=== PATIENT | female | born 1950 | race African-American/Black ===

== ENCOUNTER 2017-05-21 12:38 | Emergency (ER) | payer OTHER ==
[2017-05-21 13:09] VITALS: TEMP 98.2; BMI 54.8
[2017-05-21] MEDS ORDERED: ALBUTEROL SO4 2.5/IPRATROPIUM 0.5 INH SOL 3 ML VIAL.NEB. NEB ONE (13:21)
[2017-05-21] MEDS ORDERED: methylPREDNISolone NA SUCC 125 MG/2 ML VIAL IVPB ONE (13:21)
[2017-05-21] MEDS ORDERED: MAGNESIUM SULFATE 2 GM in SODIUM CHLORIDE 100 ML IVPB ONE (13:21)
--- NOTE | 2017-05-21 13:21 | PDOC ---
Attending Attestation - Resident Resident Name: Ann Dove - ED Attending Attestation I have performed the following: I have examined & evaluated the patient, The case was reviewed & discussed with the resident, I agree w/resident's findings & plan, Exceptions are as noted - HPI HPI: 05/21/17 13:35 The pt is a 67 year female with severe COPD (on home oxygen) and extensive cardiovascular disease, who presents with dizziness (described as room spinning ) associated with nausea. The dizziness is only present with head movement. It extinguishes within seconds. It is never present if she does not move her head. She denies diplopia, dysphagia, dysarthria, ataxia. She denies focal weakness or paresthesias. She denies loss of consciousness. She denies tinnitus, hearing changes. 05/21/17 13:44 - Physicial Exam PE: 05/21/17 13:44 She is obese, well-appearing, in no acute distress There are no focal neurological findings Specifically, there is no dysmetria, dysdiadochokinesis NEURO: Alert, awake, appropriate. Cranial nerves 2-12 intact. No deficits to light touch and temperature in face, upper extremities and lower extremities. No motor deficits in the in face, upper extremities and lower extremities. No pronator drift. Normoreflexic in the upper and lower extremities. Normal speech. Toes are down-going bilaterally. Gait is normal without ataxia. No dysmetria. No dysdiadochokinesis. No skew deviation. No abnormal nystagmus. Rhomberg is -. Head thrust test is + on left. Dixs-Hallpike test is + on left. 05/21/17 16:56 - Medical Decision Making 05/21/17 16:56 Symptoms much improved She has no evidence of central vertigo Per the patient and her , her respiratory status is at baseline Will discharge with ENT follow-up Clinical impression: Benign paroxysmal positional vertigo I discussed the physical exam findings, ancillary test results and final diagnoses with the patient. I answered all of the patient's questions. The patient was satisfied with the care received and felt comfortable with the discharge plan and treatment plan. The patient will call their primary care physician within 24 hours to arrange follow-up and will return to the Emergency Department with any new, persistent or worsening symptoms. Discharge Disposition - Diagnosis Vertigo - Discharge Dispostion Disposition: HOME Condition at time of disposition: Improved Last Admission D/C Date: 07/23/15 - Prescriptions Prescriptions: Meclizine HCl [Antivert -] 25 mg PO QID PRN #120 tablet PRN Reason: Vertigo Ondansetron HCl [Zofran] 4 mg PO Q4H PRN #60 tablet PRN Reason: Nausea - Referrals Referrals: Samia Rivera MD [Primary Care Provider] - Herb Hector MD [Staff Physician] - - Patient Instructions Printed Discharge Instructions: Benign Paroxysmal Positional Vertigo Additional Instructions: your vertigo is due to a stone in your left middle ear. It should go away in a week or two. Please take meclizine when you are dizzy and zofran when you are nauseous. Be careful not to fall down. Follow up with Dr Hector who is an cutting machine offbearer. Return to ER if symptoms persist - Post Discharge Activity
--- NOTE | 2017-05-21 13:34 | PDOC ---
History of Present Illness - General Chief Complaint: Lightheaded Stated Complaint: DIZZINESS Time Seen by Provider: 05/21/17 13:19 History Source: Patient Exam Limitations: No Limitations - History of Present Illness Initial Comments: 05/21/17 14:19 This is a 67 yo F with PMH of COPD on 2L, CAD s/p cabg, htl, hld, borderline DM and neuropathy, who presents to ED due to vertigo that started yesterday morning. She describes the sensation as the room spinning around her. It comes and goes, brought out by movement, especially leaning left. She denies h/a, focal neuro deficits. She complans of associated nausea with 3 episodes of nbnb vomiting and some nonbloody, nonmelenous diarrhea. She denies increased sob, cough orthopnea, LE edema, chest pain, dysuria. She denies dysmetria, dysarthria , dysphagia. Past History - Past Medical History Allergies/Adverse Reactions: Allergies Allergy/AdvReac Type Severity Reaction Status Date / Time ibuprofen Allergy Verified 07/21/15 01:55 Penicillins Allergy Verified 07/21/15 01:55 Home Medications: Ambulatory Orders Albuterol Sulfate [Proair Hfa -] 2 inh PO DAILY 02/03/15 Amlodipine Besylate [Norvasc -] 10 mg PO DAILY 02/03/15 Losartan Potassium 100 mg PO DAILY 02/03/15 Salmeterol/Fluticasone [Advair 100Mcg/50Mcg -] 1 inh PO BID 02/03/15 Simvastatin [Zocor -] 20 mg PO HS 02/03/15 Tiotropium [place] [Spiriva] 1 inh PO DAILY 02/03/15 Azithromycin 500 mg PO DAILY #0 tablet 07/23/15 Prednisone [Deltasone -] 40 mg PO DAILY #0 tablet 07/23/15 Meclizine HCl [Antivert -] 25 mg PO QID PRN #120 tablet 05/21/17 Ondansetron HCl [Zofran] 4 mg PO Q4H PRN #60 tablet 05/21/17 Cardiac Disorders: Yes COPD: Yes Diabetes: Yes (borderline) HTN: Yes Hypercholesterolemia: Yes - Surgical History Cardiac Surgery: Yes (triple bypass) - Immunization History Immunization Up to Date: Yes - Psycho/Social/Smoking Cessation Hx Anxiety: No Suicidal Ideation: No Smoking History: Unknown if ever smoked Have you smoked in the past 12 months: No Information on smoking cessation initiated: No Hx Alcohol Use: No Drug/Substance Use Hx: No Substance Use Type: None Hx Substance Use Treatment: No Review of Systems - Review of Systems Able to Perform ROS?: Yes Is the patient limited [place] Citizen proficient: No Constitutional: No: Chills, Fever HEENTM: No: Blurred Vision, Ear Discharge, Nose Pain, Nose Congestion, Tinnitus , Hearing Loss, Throat Pain, Difficulty Swallowing Respiratory: Yes: Shortness of Breath (stable). No: Cough, Orthopnea, Wheezing Cardiac (ROS): No: Chest Pain, Irregular Heart Rate, Lightheadedness, Palpitations, Syncope ABD/GI: Yes: Diarrhea. No: Abdominal Distended, Constipated, Nausea, Rectal Bleeding, Vomiting, Tarry Stools : No: Burning, Dysuria, Flank Pain Integumentary: No: Rash, Sweating Neurological: No: Headache, Numbness, Paresthesia Psychiatric: No: Anxiety, Frequent Crying Endocrine: No: Change in Weight Hematologic/Lymphatic: No: Anemia, Blood Clots, Easy Bleeding, Easy Bruising All Other Systems: Reviewed and Negative *Physical Exam - Vital Signs Last Vital Signs Temp Pulse Resp BP Pulse Ox 98.2 F 92 H 26 H 131/76 91 L 05/21/17 13:03 05/21/17 13:03 05/21/17 13:03 05/21/17 13:03 05/21/17 13:03 - Physical Exam Comments: 05/21/17 14:50 General: aao x 3 nad HEENT: R tympanic membrane wnl, L obscred by ear wax. PERRLA EOMI, no thyromegaly CV: rrr s1 s2 Pulm: diffusely restricted breath sounds, somewhat tachypneic, no accessory muscle use GI: obese, nontender, nondistended, normoactive bowel sounds Extremities: nonedematous Higbee hallpike + left side 05/21/17 14:53 Medical Decision Making - Medical Decision Making 05/21/17 14:53 Patient presents with clinical picture consistent with benign positional vertigo because it is intermittent, positional, lasting a few seconds only, not associated with ear fullness, tinnitus, h/a or neuro deficits. will d/c home with meclizine, zofran, and ENT f/u. *DC/Admit/Observation/Transfer Diagnosis at time of Disposition: Vertigo - Discharge Dispostion Admit: No - Prescriptions Prescriptions: Meclizine HCl [Antivert -] 25 mg PO QID PRN #120 tablet PRN Reason: Vertigo Ondansetron HCl [Zofran] 4 mg PO Q4H PRN #60 tablet PRN Reason: Nausea - Referrals Referrals: Samia Rivera MD [Primary Care Provider] - Herb Hector MD [Staff Physician] - - Patient Instructions Printed Discharge Instructions: Benign Paroxysmal Positional Vertigo Additional Instructions: your vertigo is due to a stone in your left middle ear. It should go away in a week or two. Please take meclizine when you are dizzy and zofran when you are nauseous. Be careful not to fall down. Follow up with Dr Hector who is an nuclear reactor engineer. Return to ER if symptoms persist
[2017-05-21] MEDS ORDERED: MECLIZINE HCL 25 MG TABLET (FP) PO ONE (13:44)
[2017-05-21] MEDS ORDERED: ONDANSETRON 4 MG TABLET PO ONE (13:44)
[2017-05-21] MEDS ORDERED: MECLIZINE HCL 25 MG TABLET (FP) ONE (14:05)
[2017-05-21] MEDS ORDERED: ONDANSETRON *ODT* 4 MG TABLET ONE (14:05)
[2017-05-21 14:20] VITALS: BP 123/76; PULSE 93
== END 2017-05-21 14:20 | disposition home or self-care (01) ==
LOC: JER 12:38
PROC: 3E0F7GC Introduction of Other Therapeutic Substance into Respiratory Tract, Via Natural or Artificial Opening (ICD-10-PCS; principal; 2017-05-21)
PROC: 3E033GC Introduction of Other Therapeutic Substance into Peripheral Vein, Percutaneous Approach (ICD-10-PCS; 2017-05-21)
DX: H81.10 Benign paroxysmal vertigo, unspecified ear (principal); J44.9 Chronic obstructive pulmonary disease, unspecified
CPT/HCPCS: 99282-25

== ENCOUNTER 2017-12-23 22:43 | Inpatient (IN) | payer OTHER ==
[2017-12-23] MEDS ORDERED: MAGNESIUM SULF 50% (8.12 MEQ/2 ML-1 GM VIAL) ONE ×2 (22:46→22:49)
[2017-12-23] MEDS ORDERED: MAGNESIUM SULF 50% (8.12 MEQ/2 ML-1 GM VIAL) IVPB ONE (22:46)
--- NOTE | 2017-12-23 22:46 | PDOC ---
Attending Attestation - HPI HPI: 12/23/17 22:51 Patient is a 67F with PMH of COPD, CAD s/p cabg, htn, hld NIDDM, morbidly obese , who was BIBA with her brother for respiratory distress. EMS reports patient experiencing SOB, dizziness, and nausea. EMS states they transported patient down 4 flights of stairs and during transport patient began going into respiratory distress. Patient states she noticed increased wheezing at rest which prompted her to call EMS. Her baseline is wheezing on exertion only. Patient denies increased sputum production or cough. Social Hx: former smoker (18 years ago) Allergies: penicillin, ibuprofen PCP: Samia Rivera <Mela Allen - Last Filed: 12/24/17 00:43> - Resident Resident Name: Moshe Rajan - ED Attending Attestation I have performed the following: I have examined & evaluated the patient, The case was reviewed & discussed with the resident, I agree w/resident's findings & plan, Exceptions are as noted - Physicial Exam PE: 12/23/17 23:11 *Physical Exam General Appearance: Yes: moderate respiratory distress. HEENT: positive: EOMI, NATALIE, Normal ENT Inspection, Normal Voice, TMs Normal, Pharynx Normal. negative: Pale Conjunctivae, Photophobia, Scleral Icterus (R), Scleral Icterus (L) Neck: positive: Trachea midline, Normal Thyroid, Supple. negative: Tender, Rigid, Carotid bruit, Stridor, Lymphadenopathy (R), Lymphadenopathy (L), Thyromegaly Respiratory/Chest: positive: decreased BS bilateral moderate respiratory distress negative: Chest Tender, Cardiovascular: positive: Tachycardiac r Rhythm, Regular Rate, S1, S2. negative : Edema, JVD, Murmur, Bradycardia, Vascular Pulses: Dorsalis-Pedis (R): 2+, Doralis-Pedis (L): 2+ Gastrointestinal/Abdominal: positive: Normal Bowel Sounds, obese , Soft. negative: Tender, Organomegaly, Pulsatile Mass, Increased Bowel Sounds, Decreased BS, Distended, Guarding, Rebound, Hernia, Hepatomegaly, Spleenomegaly Lymphatic: negative: Adenopathy, Tenderness Musculoskeletal: positive: Normal Inspection. negative: CVA Tenderness, Decreased Range of Motion Extremity: positive: Normal Capillary Refill, Normal Inspection, Normal Range of Motion, Pelvis Stable. negative: Tender, Pedal Edema, Swelling, Erythema Integumentary: positive: Normal Color, Dry, Warm. negative: Cyanotic, Erythema , Jaundice, Rash - Medical Decision Making 12/24/17 19:36 Pt was admitted to ICU <Charlie Bowie - Last Filed: 12/24/17 19:36>
--- NOTE | 2017-12-23 22:48 | PDOC ---
History of Present Illness - General Stated Complaint: SOB Time Seen by Provider: 12/23/17 22:45 - History of Present Illness Initial Comments: 12/23/17 22:47 67 yo F with h/o COPD, CAD s/p CABG, HTN, HLD, NIDDM, who arrives EMS with SOB. Patient brother lives with patient at home and is at bedside reports that pt. was complaining of having chest congestion for the past 2 days. Denies increased sputum production or cough. Reports that patient typically has wheezing with exertion, but today patient with wheezing at rest, and increased Sandoval which prompted family member to call EMS. [facility] arrival patient resp status detriiorated with labored breathing. Denies F/C, abdominal pain, urinary complaints, diarrhea, constipation, LOC. No home 02 requirements for the past year. Smoking cessation 18 years ago. ICU admission 2008 for COPD exacerbation. No h/o intubation. Uses Advir daily. Past History - Past Medical History Allergies/Adverse Reactions: Allergies Allergy/AdvReac Type Severity Reaction Status Date / Time ibuprofen Allergy Verified 12/23/17 23:04 Penicillins Allergy Verified 12/23/17 23:04 Home Medications: Ambulatory Orders Amlodipine Besylate [Norvasc -] 10 mg PO DAILY 02/03/15 Losartan Potassium 100 mg PO DAILY 02/03/15 Salmeterol/Fluticasone [Advair 100Mcg/50Mcg -] 1 inh PO BID 02/03/15 Gabapentin 300 mg PO HS 12/23/17 Metformin HCl [Glucophage] 1,000 mg PO BID 12/23/17 Metoprolol Tartrate 25 mg PO DAILY 12/23/17 Cardiac Disorders: Yes COPD: Yes Diabetes: Yes (borderline) HTN: Yes Hypercholesterolemia: Yes - Surgical History Cardiac Surgery: Yes (triple bypass) - Immunization History Immunization Up to Date: Yes - Suicide/Smoking/Psychosocial Hx Smoking History: Unknown if ever smoked Have you smoked in the past 12 months: No Hx Alcohol Use: No Drug/Substance Use Hx: No Substance Use Type: None Hx Substance Use Treatment: No Review of Systems - Review of Systems Comments:: 12/24/17 00:00 Unable to obtain. *Physical Exam - Physical Exam Comments: 12/23/17 22:47 GENERAL: Awake, alert, and fully oriented, in no acute distress HEAD: No signs of trauma, normocephalic, atraumatic EYES: PERRLA, EOMI, sclera anicteric, conjunctiva clear ENT: Nares patent, oropharynx clear without exudates. Moist mucosa NECK: Normal ROM, supple, no lymphadenopathy, JVD, or masses LUNGS: Diffuse rhonci BL and rales at BL LL bases. Labored breathing. HEART: Regular rate and rhythm, normal S1 and S2, no murmurs, rubs or gallops, peripheral pulses normal and equal bilaterally. ABDOMEN: Soft, nontender, normoactive bowel sounds. No guarding, no rebound. No masses EXTREMITIES : Normal inspection, Normal range of motion, no edema. No clubbing or cyanosis. SKIN: Warm, Dry, normal turgor, no rashes or lesions noted. ED Treatment Course - LABORATORY CBC & Chemistry Diagram: 12/23/17 23:00 12/23/17 23:00 Medical Decision Making - Medical Decision Making 12/23/17 23:10 67 yo F with h/o COPD ( not on home ) , CAD s/p CABG, HTN, HLD, NIDDM, who arrives EMS in respiratory distress, hypoxic 88 % O2 on 2 L NC, and 3/4 SIRS criteria (Temp 102.6 , HR 112, R 32). Patient now stable on BIPAP S/T, 20/5 RR 24, and 60 % 02. Got Decadron 10 IM EMS,and 2 MG in ED. Patient brother lives with patient at home and is at bedside reports that pt. was complaining of having chest congestion for the past 2 days with no reported increase sputum production or cough. Baseline wheezing with exertion, but today patient with wheezing at rest, and increased Sandoval. Denies F/C, abdominal pain, urinary complaints, diarrhea, constipation, LOC. Smoking cessation 18 years ago. ICU admission 2008 for COPD exacerbation. No h/o intubation. Uses Advir daily. Physical exam notable for diffuse epx/insp rhonci and BL LL base rales.Samia Rivera PMD. DDx: Acute on Chronic COPD, CHF, PNA ED Course: 12/24/17 00:07 WBC: 16.1 Lactic Acid 1.8 ABG: Temp adjusted PH 7.13 PCO2 87.6, PO2 378, HCO3 26.5 - Adjusted vent settings. CXR: Pulm venous congestion. BNP: 1823 Influenza A positive Levaquin 750 , Tylenol 650 mg 12/24/17 00:50 Spoke to Doug PAPER ROLLER [phone] for admission. 12/24/17 01:[address] Called [address] Miguel Gracia Called answering service Called Dr. Gracia cell phone and left message. Called physician phone. 12/24/17 03:32 Morphine 4 mg 12/24/17 05:41 Patient admitted to inpatient hospitalist ICU. Dr. Gonzalez. *DC/Admit/Observation/Transfer Diagnosis at time of Disposition: COPD (chronic obstructive pulmonary disease), Sepsis, CHF (congestive heart failure), PNA (pneumonia) - Discharge Dispostion Admit: Yes - Referrals - Patient Instructions - Post Discharge Activity
[2017-12-23] MEDS ORDERED: ACETAMINOPHEN 650 MG SUPP.RECT ONE (22:56)
[2017-12-23] MEDS ORDERED: ACETAMINOPHEN 650 MG SUPP.RECT PR ONE (22:58)
[2017-12-23] MEDS ORDERED: LEVOFLOXACIN 750 MG IVPB 750 MG/150 ML BAG IVPB ONE ×2 (22:58→23:19)
[2017-12-23] MEDS ORDERED: SODIUM CHLORIDE 1,000 ML IV STA (22:59)
[2017-12-23 23:07] LABS: ARTERIAL BLD GAS O2 SATURATION 99.3 % (90-98.9); ARTERIAL BLOOD GAS BASE EXCESS -3.8 meq/l (-2-2)
[2017-12-23 23:17] LABS: ARTERIAL BLOOD GAS pH 7.13 (7.35-7.45)
[2017-12-23 23:23] LABS: ARTERIAL BLOOD GAS PCO2 87.6 mmHg (35-45)
[2017-12-23 23:24] LABS: ALLENS TEST POSITIVE
[2017-12-23 23:35] LABS: BASO % 0.5 % (0-2.0); EOS % 1.1 % (0-4.5); HEMATOCRIT 38.6 % (32.4-45.2); HEMOGLOBIN 12.3 GM/dL (10.7-15.3); LYMPH % 12.8 % (8-40); MCH 27.5 pg (25.7-33.7); MCHC 31.7 g/dl (32.0-36.0); MEAN CELL VOLUME 86.5 fl (80-96); MEAN PLT VOLUME 8.8 fl (7.5-11.1); MONO % 3.9 % (3.8-10.2); NEUT % 81.7 % (42.8-82.8); PLATELET COUNT 312 K/MM3 (134-434); RBC 4.47 M/mm3 (3.60-5.2); RDW 16.1 % (11.6-15.6); WHITE BLOOD COUNT 16.1 K/mm3 (4.0-10.0)
[2017-12-23 23:44] LABS: URINE APPEARANCE CLOUDY; URINE BILIRUBIN NEGATIVE (NEGATIVE); URINE BLOOD NEGATIVE (NEGATIVE); URINE COLOR AMBER; URINE GLUCOSE (UA) 3+ (NEGATIVE); URINE KETONE TRACE (NEGATIVE); URINE LEUK ESTERASE NEGATIVE (NEGATIVE); URINE NITRITE NEGATIVE (NEGATIVE); URINE UROBILINOGEN 4.0 E.U/dl mg/dL (0.2-1.0)
[2017-12-23 23:51] LABS: URINE PROTEIN 3+ (NEGATIVE)
[2017-12-23 23:52] LABS: EPI CELLS RARE /HPF (FEW); URINE BACTERIA FEW /hpf (NONE SEEN); URINE HYALINE CAST 4 /lpf; URINE MUCUS RARE
[2017-12-23] MEDS ORDERED: FUROSEMIDE 40 MG/4 ML INJECTABLE VIAL IVPUSH ONE (23:56)
[2017-12-24] LABS: INR 1.19 (0.82-1.09); PROTHROMBIN TIME (PATIENT) 13.4 SEC (9.98-11.88)
[2017-12-24 00:13] LABS: ALBUMIN 3.3 g/dl (3.4-5.0); ANION GAP 12 (8-16); BILIRUBIN,TOTAL 1.1 mg/dL (0.2-1.0); BLOOD UREA NITROGEN 12 mg/dL (7-18); CALCIUM 8.1 mg/dL (8.5-10.1); CHLORIDE 95 mmol/L (98-107); CO2 27 mmol/L (21-32); CREATININE 1.1 mg/dL (0.55-1.02); MAGNESIUM 1.7 mg/dL (1.8-2.4); POTASSIUM 4.4 mmol/L (3.5-5.1); SGOT/AST 33 U/L (15-37); SGPT/ALT 31 U/L (12-78); SODIUM 134 mmol/L (136-145); TOT PROT 7.8 g/dl (6.4-8.2)
[2017-12-24 00:16] LABS: ALK PHOS 85 U/L (45-117); N-TERMINAL BNP 1823.76 pg/ml (5-125)
[2017-12-24 00:26] LABS: GLUCOSE,RANDOM 363 mg/dL (74-106)
[2017-12-24] MEDS ORDERED: FUROSEMIDE 40 MG/4 ML INJECTABLE VIAL ONE (00:32)
[2017-12-24] MEDS ORDERED: OSELTAMIVIR PHOSPHATE 75 MG CAPSULE PO ONE (01:03)
[2017-12-24] MEDS ORDERED: OSELTAMIVIR PHOSPHATE 75 MG CAPSULE ONE (01:19)
--- NOTE | 2017-12-24 03:17 | PN ---
Teaching Attending Note Name of Resident: Romy Benito ATTENDING PHYSICIAN STATEMENT I saw and evaluated the patient. I reviewed the resident's note and discussed the case with the resident. I agree with the resident's findings and plan as documented. SUBJECTIVE: 67 yo M with pmhx. of COPD, CAD s/p CABG, HTN, HLD, NIDDM, and morbid obesity who presents with shortness of breath. States that she had shortness of breath over the coarse of several days and had progressed. Notes she has not been on her home 02 for several months due to it running out. Pt. states she felt febrile at home, but did not measure her temperature. Also, notes she did not get her flu shot this year. No chest pain or pressure. Denies any chest tightness and notes she feels her breathing is improved on the BIPAP. OBJECTIVE: Physical: VS: Vital Signs Period Temp Pulse Resp BP Sys/Rueda Pulse Ox Last 24 Hr 99.6 F-102.6 F 91-112 18-32 106-158/63-102 88-99 GEN: NAD, AA0X3, Sitting up in bed and on BIPAP. HEENT: NCAT, PERRL, Throat without erythema or exudates CARD: RRR S1, S2 RESP: Decreased Breath sound and bilateral mild expiratory wheezing ABD: BSx4, NTD to palpation EXT: +2 Pitting edema bilateral and equal CBCD WBC 16.1 K/mm3 (4.0-10.0) H 12/23/17 23:00 RBC 4.47 M/mm3 (3.60-5.2) 12/23/17 23:00 Hgb 12.3 GM/dL (10.7-15.3) 12/23/17 23:00 Hct 38.6 % (32.4-45.2) 12/23/17 23:00 MCV 86.5 fl (80-96) 12/23/17 23:00 MCHC 31.7 g/dl (32.0-36.0) L 12/23/17 23:00 RDW 16.1 % (11.6-15.6) H 12/23/17 23:00 Plt Count 312 K/MM3 (134-434) D 12/23/17 23:00 MPV 8.8 fl (7.5-11.1) 12/23/17 23:00 CMP Sodium 134 mmol/L (136-145) L 12/23/17 23:00 Potassium 4.4 mmol/L (3.5-5.1) 12/23/17 23:00 Chloride 95 mmol/L (98-107) L 12/23/17 23:00 Carbon Dioxide 27 mmol/L (21-32) 12/23/17 23:00 Anion Gap 12 (8-16) 12/23/17 23:00 BUN 12 mg/dL (7-18) 12/23/17 23:00 Creatinine 1.1 mg/dL (0.55-1.02) H 12/23/17 23:00 Creat Clearance w eGFR 49.39 (>60) 12/23/17 23:00 Random Glucose 363 mg/dL (74-106) H* 12/23/17 23:00 Calcium 8.1 mg/dL (8.5-10.1) L 12/23/17 23:00 Total Bilirubin 1.1 mg/dL (0.2-1.0) H D 12/23/17 23:00 AST 33 U/L (15-37) 12/23/17 23:00 ALT 31 U/L (12-78) 12/23/17 23:00 Alkaline Phosphatase 85 U/L (45-117) 12/23/17 23:00 Total Protein 7.8 g/dl (6.4-8.2) 12/23/17 23:00 Albumin 3.3 g/dl (3.4-5.0) L 12/23/17 23:00 CARDIAC ENZYMES Creatine Kinase 308 IU/L (26-192) H 12/23/17 23:00 Troponin I 0.03 ng/ml (0.00-0.05) 12/23/17 23:00 CXR- Bilateral Infilterates, Congestion EKG:Pt. Shivering at time of EKG making interperation difficult to interpert, but SR with Non-Specific intaventricular block QtC 568 Urine Test Results Urine Color Sabrina 12/23/17 23:00 Urine Appearance Cloudy 12/23/17 23:00 Urine pH 5.0 (5.0-8.0) 12/23/17 23:00 Ur Specific [place] 1.023 (1.001-1.035) 01/24/18 23:00 Urine Protein 3+ (NEGATIVE) H 12/23/17 23:00 Urine Glucose (UA) 3+ (NEGATIVE) H 12/23/17 23:00 Urine Ketones Trace (NEGATIVE) H 12/23/17 23:00 Urine Blood Negative (NEGATIVE) 12/23/17 23:00 Urine Nitrite Negative (NEGATIVE) 12/23/17 23:00 Urine Bilirubin Negative (NEGATIVE) 12/23/17 23:00 Ur Leukocyte Esterase Negative (NEGATIVE) 12/23/17 23:00 Ur Epithelial Cells Rare /HPF (FEW) 12/23/17 23:00 Urine Bacteria Few /hpf (NONE SEEN) 12/23/17 23:00 Urine Mucus Rare 12/23/17 23:00 Ambulatory Orders Amlodipine Besylate [Norvasc -] 10 mg PO DAILY 02/03/15 Losartan Potassium 100 mg PO DAILY 02/03/15 Salmeterol/Fluticasone [Advair 100Mcg/50Mcg -] 1 inh PO BID 02/03/15 Gabapentin 300 mg PO HS 12/23/17 Metformin HCl [Glucophage] 1,000 mg PO BID 12/23/17 Metoprolol Tartrate 25 mg PO DAILY 12/23/17 ASSESSMENT AND PLAN: 67 yo M with pmhx. of COPD, CAD s/p CABG, HTN, HLD, NIDDM, and morbid obesity who presents with shortness of breath, being admitted for Acute Hypercapnic Respiratory failure, CHF Exacerbation, and Sepsis secondary to pneumonia/flu, 1.) Acute Hypercapnic Respiratory Failure - BIPAP - Repeat ABG 2.) Acute Congestive Heart Failure, Systolic possible - Strict I/O - NPO - Fluid Restrict - Lasix 40 QD - Daily weights - Trend Trop/EKG - NA restrict - ECHO complete 3.) Sepsis due to Pneumonia/FLU A+ - Repeat LA - Droplet Percautions - ROGERS CX - Urine AGs - Katharine-Flu - Cover for PNA - Levaquin given in ED, but would be very cautious with prolonged QT - Can consider broadening coverage due Vanco/Aztreo, but will get ID opinion. 4.) Acute Excacerbation of COPD - Nebs ATC and PRN - Solu-Medrol - C/W BIPAP and Repeat ABG - Med Optimization prior to D/C 5.) CAD s/p CABG - C/W Home meds - Unsure why pt. is not on ASA - Hold BB is bronchospasm/due to severe COPD for now 6.) ARF - Hold Brandon - U lytes 7.) NIDDM - FS - RAISS 8.) Dvt Ppx - Heparin [address] in ICU CC TIME:45 Minutes
[2017-12-24] MEDS ORDERED: morphine CARPU-JECT 4 MG/1 ML DISP.SYRIN IVPUSH ONE (03:22)
[2017-12-24] MEDS ORDERED: ONDANSETRON 4 MG/2 ML VIAL IVPB ONE (03:23)
[2017-12-24] MEDS ORDERED: morphine CARPU-JECT 4 MG/1 ML DISP.SYRIN ONE (03:29)
[2017-12-24] MEDS ORDERED: ONDANSETRON 4 MG/2 ML VIAL ONE (03:30)
--- NOTE | 2017-12-24 03:46 | HP ---
CHIEF COMPLAINT: PCP: HISTORY OF PRESENT ILLNESS: 67 y/o F with PMH COPD (hx exacerbation 2014; not on home oxygen), CHF, CAD s/p CABG (2007), HTN, HLD, NIDDM, who was BIBEMS d/t SOB x 1 day. As per pt's brother, pt had a chest cold associated with chest pain over the last 2-3 days. Yesterday, she states that she had difficulty breathing at rest. Her SOB quickly worsened, so her brother called EMS to bring her to the hospital. SOB is a/w productive cough with copious amounts of cream colored phlegm (without blood). Pt does not recall what happened while she was in the ambulance, as per brother, "she had passed out." During this time, pt endorsed HIGH, fever, chills, however denied chest pain or changes in urinary or bowel function. Upon ED arrival, pt deteriorated with labored breathing (RR32), sat 88% on 2L NC 02. She was immediately placed on BiPAP. Currently, pt is on following BiPAP settings: IPAP 20/EPAP 5/ 02% 60/ Rate 24 ER course was notable for: (1) Lasix 40mg IVP x 1 (2) Levaquin 750mg x 1 (3) mg sulfate 2gm IVPBx1 (4) tamiflu 75mgx 1 (5) NS 1000ml bolus (6) EKG: prolonged QTc 568 (7) ABG: hypercapnic pc02 87.6 Recent Travel: none PAST MEDICAL HISTORY: COPD (hx exacerbation 2014; not on home oxygen), CHF, CAD s/p CABG (2007), HTN, HLD, NIDDM PAST SURGICAL HISTORY: CABG (2007) Social History: retired [employer] Smoking:quit smoking ten years ago, unable to quantify how long she smoked for Alcohol: socially Drugs: denies Family History: cancer in mother and father- does not know type Allergies ibuprofen Allergy (Verified 12/23/17 23:04) Penicillins Allergy (Verified 12/23/17 23:04) HOME MEDICATIONS: Home Medications Medication Instructions Recorded Amlodipine Besylate [Norvasc -] 10 mg PO DAILY 02/03/15 Losartan Potassium 100 mg PO DAILY 02/03/15 Salmeterol/Fluticasone [Advair 1 inh PO BID 02/03/15 100Mcg/50Mcg -] Gabapentin 300 mg PO HS 12/23/17 Metformin HCl [Glucophage] 1,000 mg PO BID 12/23/17 Metoprolol Tartrate 25 mg PO DAILY 12/23/17 REVIEW OF SYSTEMS CONSTITUTIONAL: +fever, chills Absent: fever, chills, diaphoresis, generalized weakness, malaise, loss of appetite, weight change HEENT: Absent: rhinorrhea, nasal congestion, throat pain, throat swelling, difficulty swallowing, mouth swelling, ear pain, eye pain, visual changes CARDIOVASCULAR: Absent: chest pain, syncope, palpitations, irregular heart rate, lightheadedness , peripheral edema RESPIRATORY: +cough, SOB, dyspnea at rest Absent: cough, shortness of breath, dyspnea with exertion, orthopnea, wheezing, stridor, hemoptysis GASTROINTESTINAL: Absent: abdominal pain, abdominal distension, nausea, vomiting, diarrhea, constipation, melena, hematochezia GENITOURINARY: Absent: dysuria, frequency, urgency, hesitancy, hematuria, flank pain, genital pain MUSCULOSKELETAL: Absent: myalgia, arthralgia, joint swelling, back pain, neck pain SKIN: Absent: rash, itching, pallor HEMATOLOGIC/IMMUNOLOGIC: Absent: easy bleeding, easy bruising, lymphadenopathy, frequent infections ENDOCRINE: Absent: unexplained weight gain, unexplained weight loss, heat intolerance, cold intolerance NEUROLOGIC: Absent: headache, focal weakness or paresthesias, dizziness, unsteady gait, seizure, mental status changes, bladder or bowel incontinence PSYCHIATRIC: Absent: anxiety, depression, suicidal or homicidal ideation, hallucinations. PHYSICAL EXAMINATION Vital Signs 12/23/17 12/23/17 12/24/17 22:45 23:00 00:48 Temperature 102.6 F H 99.6 F Pulse Rate 112 H Pulse Rate [ 91 H Right Radial] Respiratory 32 H 18 Rate Blood Pressure 158/102 Blood Pressure 106/63 [Right Arm] O2 Sat by Pulse 88 L 98 98 Oximetry (%) GENERAL: Lethargic, AAOx3, in no acute distress. On BiPAP HEAD: Normal with no signs of trauma. EYES: Pupils equal, round and reactive to light, extraocular movements intact, serous discharge from eyes EARS, NOSE, THROAT: Ears normal, nares patent, oropharynx clear without exudates. Moist mucous membranes. NECK: Normal range of motion, supple without lymphadenopathy LUNGS: diffuse rhonchi appreciated b/l. without accessory m. usage HEART: Regular rate and rhythm, normal S1 and S2 without murmur, rub or gallop. ABDOMEN: Soft, obese nontender, not distended, normoactive bowel sounds, no guarding LOWER EXTREMITIES: 2+ dorsalis pedis pulses, warm, well-perfused. No calf tenderness. 2+ pitting edema b/l NEUROLOGICAL: Cranial nerves II-XII intact. PSYCHIATRIC: Cooperative. Laboratory Results 12/23/17 12/23/17 12/23/17 23:00 23:00 23:00 WBC 16.1 H Hgb 12.3 Hct 38.6 Plt Count 312 D Oxygen Flow Rate Sodium 134 L Potassium 4.4 Chloride 95 L Carbon Dioxide 27 Anion Gap 12 BUN 12 Creatinine 1.1 H Creat Clearance w eGFR 49.39 Random Glucose 363 H* Calcium 8.1 L Magnesium 1.7 L Total Bilirubin 1.1 H D Creatine Kinase 308 H CK-MB (CK-2) 3.771 H B-Natriuretic Peptide 1823.76 H Albumin 3.3 L Urine Appearance Cloudy Urine Protein 3+ H Urine Glucose (UA) 3+ H Urine Ketones Trace H Urine Urobilinogen 4.0 e.u/dl H 12/23/17 23:00 Puncture Site Right radial ABG pH 7.13 L* D ABG pCO2 at Pt Temp 87.6 H* D ABG HCO3 26.5 H ABG O2 Sat (Measured) 99.3 H O2 Delivery Device Bipap Oxygen Flow Rate 100% o2 Microbiology 12/23/17 23:00 Nasopharyngeal Swab Influenza Types A,B Antigen (BRITT) - Final - Flu A ag + 12/23/17 23:00 Nasopharyngeal Swab - Final Blood cx- pending EKG -Repeat Qtc prolonged 568 Radio CXR: b/l infiltrates, with congestion, pulmonary edema. sternotomy wires s/p CABG (2007) ASSESSMENT/PLAN: 67 y/o F with PMH COPD (hx exacerbation 2014; not on home oxygen), CHF, CAD s/p CABG (2007), HTN, HLD, NIDDM, who was BIBEMS d/t SOB x 1 day. Pt being admitted to ICU for acute hypercapnic respiratory failure possibly 2/2 Flu, PNA. #Acute hypercapnic respiratory failure possibly 2/2 Flu or PNA -Pt with numerous inciting factors, +Flu A , also with PNA, CHF, COPD exacerbation -Continue BiPAP; current settings IPAP 20/EPAP 5/ 02% 60/ Rate 24 -F/u repeat ABG #CHF exacerbation 2/2 Flu or PNA -Lasix 40mg IVP qd -Daily weights -Fluid restriction -Strict I's & O's -Trend troponins x 3 -F/u ECHO to determine whether systolic or diastolic dysfnc -Recommend f/u EKGs as needed # Influenza A+ -Isolation precautions- droplet -Received Tamiflu 75 mg PO x 1 in ED -Started on Tamiflu 30mg PO BID, based on renal dosing #COPD exacerbation 2/2 Flu or PNA -Started on solumedrol 40mg IVP q8h -Duonebs 1 amp q4h PRN -Continue Advair 1 puff IH BID #sepsis 2/2 Flu or PNA -febrile, with leukocytosis 16.1, tachycardic on arrival 112, RR 32 -received one dose Levaquin 750mg in ED, however QT prolonged (568)- therefore avoid use -ID consult-Dr. Crook -pt allergic to PCN - causes rash #Hypomagnesemia -In ED, 1.7 -given mg sulfate 2gm IVPB -F/u AM mg level #IDDM -ISS ACHS -BGM #HTN- currently controlled -Continue Losartan 100mg PO Daily -Holding metoprolol d/t adverse effect bronchospasm -Holding norvasc #PPX DVT: Hep SQ 5000 q8h #F/E/N -no fluids at this time, as pt CHF - do not want to overload -Monitor electrolytes, especially Mg -NPO #Disposition ICU monitoring and management as pt dependent on BiPAP to keep 02 sat up Visit type - Emergency Visit Emergency Visit: Yes ED Registration Date: 12/24/17 Care time: The patient presented to the Emergency Department on the above date and was hospitalized for further evaluation of their emergent condition. - New Patient This patient is new to me today: Yes Date on this admission: 12/24/17 - Critical Care Critical Care patient: Yes Total Critical Care Time (in minutes): 32 Critical Care Statement: The care of this patient involved high complexity decision making to prevent further life threatening deterioration of the patient 's condition and/or to evaluate & treat vital organ system(s) failure or risk of failure.
[2017-12-24] MEDS ORDERED: ALBUTEROL SO4 2.5/IPRATROPIUM 0.5 INH SOL 3 ML VIAL.NEB. NEB PRN (04:31)
[2017-12-24] MEDS ORDERED: methylPREDNISolone NA SUCC 40 MG/1 ML VIAL IVPUSH SCH (04:45)
--- NOTE | 2017-12-24 04:59 | CONSULT ---
Consult - text type - Consultation Consultation Note: Pulm/CCM Pt seen and examined in ICU CC: Shortness of breath HPI: 67 y/o woman with hx of morbid obesity, HTN, COPD, DM, prescribed home o2 ( however ran out many months ago) who presented to ED by ambulance with short prodrome ~ 2day of increased wheezing, subjective fever and mild cough productive with yellowish sputum. She denies sick contacts, chest pain, HIGH, n/v/ d, falls. Her family called 911 when she felt more short of breath. She was quite dyspneic after being carried down flights of stairs and " passed out in ambulance. In ED pt was febrile 102, tachypneic to 30s, BP WNL, tachycardic, spo2 88. She was quickly placed on NIV, abg revealing acute on chronic hypercapnea 7.13/87/ 378 (on NIV Bipap rate 25/ 20/5/100). She was initially given IVF 1 L, started on Tamiflu and LVQ. BNP was 1800 so IV lasix 40mg given with good UOP. WBC was 16 with N predominance. UA was + with 40 wbc but no LE and no dysuria/ complaints of frequency etc. CXR shows bilateral pulm vasc congestion,diffuse infiltrates and ? basilar atelectasis. Work of breathing improved. Pt admitted to ICU for further care. On arrival in ICU pt NIV settings adjusted Bipap rate 16/16/6/45% with spo2 92% and repeat ABG sent. Viral swab Flu A positive. Bcxl and ucxl sent. Pt not making sputum here, ordered. . Past Medical History Cardio/Vascular CAD Pulmonary COPD,O2 Dependent Past Surgical History Past Surgical History CABG Social History Smoking history Unknown if ever smoked Have you smoked in the past 12 No months Hx Alcohol Use No Lives with family, not working. Largely independent ADLs. able to walk up flight of stairs with minimal rest. Ambulatory Orders Amlodipine Besylate [Norvasc -] 10 mg PO DAILY 02/03/15 Losartan Potassium 100 mg PO DAILY 02/03/15 Salmeterol/Fluticasone [Advair 100Mcg/50Mcg -] 1 inh PO BID 02/03/15 Ventolin rescue inhaler Gabapentin 300 mg PO HS 12/23/17 Metformin HCl [Glucophage] 1,000 mg PO BID 12/23/17 Metoprolol Tartrate 25 mg PO DAILY 12/23/17 Current Medications Albuterol/Ipratropium (Duoneb -) 1 amp NEB Q4H PRN PRN Reason: SHORTNESS OF BREATH Chlorhexidine Gluconate (Hibiclens For Decolonization -) 1 applic TP HS [facility] Furosemide (Lasix Injection -) 40 mg IVPUSH DAILY [facility] Gabapentin (Neurontin -) 300 mg PO HS [facility] Heparin Sodium (Porcine) (Heparin -) 5,000 unit SQ TID [facility] Insulin Aspart (Novolog Vial Sliding Scale -) 0 vial SQ ACHS [facility] PRN Reason: Protocol Methylprednisolone Sodium Succinate (Solu-Medrol -) 40 mg IVPUSH Q8H-IV [facility] Mupirocin (Bactroban Ointment (For Decolonization) -) 1 applic NS BID [facility] Stop: 12/29/17 09:59 Non-Formulary Medication (Losartan Potassium [Losartan Potassium]) 100 mg PO DAILY [facility] Oseltamivir Phosphate (Tamiflu -) 30 mg PO BID [facility] Stop: 12/29/17 11:59 Fluticasone/Salmeterol (Advair 100mcg/50mcg -) 1 puff IH BID [facility] CBCD WBC 16.1 K/mm3 (4.0-10.0) H 12/23/17 23:00 RBC 4.47 M/mm3 (3.60-5.2) 12/23/17 23:00 Hgb 12.3 GM/dL (10.7-15.3) 12/23/17 23:00 Hct 38.6 % (32.4-45.2) 12/23/17 23:00 MCV 86.5 fl (80-96) 12/23/17 23:00 MCHC 31.7 g/dl (32.0-36.0) L 12/23/17 23:00 RDW 16.1 % (11.6-15.6) H 12/23/17 23:00 Plt Count 312 K/MM3 (134-434) D 12/23/17 23:00 MPV 8.8 fl (7.5-11.1) 12/23/17 23:00 CMP Sodium 134 mmol/L (136-145) L 12/23/17 23:00 Potassium 4.4 mmol/L (3.5-5.1) 12/23/17 23:00 Chloride 95 mmol/L (98-107) L 12/23/17 23:00 Carbon Dioxide 27 mmol/L (21-32) 12/23/17 23:00 Anion Gap 12 (8-16) 12/23/17 23:00 BUN 12 mg/dL (7-18) 12/23/17 23:00 Creatinine 1.1 mg/dL (0.55-1.02) H 12/23/17 23:00 Creat Clearance w eGFR 49.39 (>60) 12/23/17 23:00 Random Glucose 363 mg/dL (74-106) H* 12/23/17 23:00 Calcium 8.1 mg/dL (8.5-10.1) L 12/23/17 23:00 Total Bilirubin 1.1 mg/dL (0.2-1.0) H D 12/23/17 23:00 AST 33 U/L (15-37) 12/23/17 23:00 ALT 31 U/L (12-78) 12/23/17 23:00 Alkaline Phosphatase 85 U/L (45-117) 12/23/17 23:00 Total Protein 7.8 g/dl (6.4-8.2) 12/23/17 23:00 Albumin 3.3 g/dl (3.4-5.0) L 12/23/17 23:00 CARDIAC ENZYMES Creatine Kinase 308 IU/L (26-192) H 12/23/17 23:00 Troponin I 0.03 ng/ml (0.00-0.05) 12/23/17 23:00 Troponin, BNP 12/23/17 23:00 Troponin I 0.03 B-Natriuretic Peptide 1823.76 H ABG Results ABG pH 7.13 (7.35-7.45) L* D 12/23/17 23:00 ABG pCO2 at Pt Temp 87.6 mmHg (35-45) H* D 12/23/17 23:00 ABG pO2 at Pt Temp 378.0 mmHg (80-100) H* 12/23/17 23:00 ABG HCO3 26.5 meq/L (22-26) H 12/23/17 23:00 ABG O2 Sat (Measured) 99.3 % (90-98.9) H 12/23/17 23:00 ABG O2 Content 17.9 % vol (15-22) 12/23/17 23:00 ABG Base Excess -3.8 meq/l (-2-2) L 12/23/17 23:00 Microbiology 12/23/17 23:00 Nasopharyngeal Swab Influenza Types A,B Antigen (BRITT) - Final 12/23/17 23:00 Nasopharyngeal Swab - Final CXL pending CXR: reviewed as above EKG: sinus rhythm, r axis, intraventricular block, prolonged QT ROS: 10pt review negative except as per HPI. Vital Signs Temp 97.8 F 12/24/17 04:50 Pulse 83 12/24/17 04:50 Resp 18 12/24/17 04:50 BP 118/72 12/24/17 04:50 Pulse Ox 94 L 12/24/17 05:03 Intake & Output 12/23/17 12/23/17 12/24/17 11:59 23:59 11:59 Output Total 500 Balance -500 Weight 158.757 kg 156.036 kg Output: Urine 500 Sahni 500 Other: Voiding Method Indwelling Catheter Height 5 ft 9 in 5 ft 9 in Body Mass Index (BMI) 51.7 50.8 Weight Measurement Method Built in [facility] Weight Measurement Method Estimated by Staff GENERAL: Awakens to voice, non toxic appearing HEAD: NCAT EYES: PERRL, EOMI, non injected sclera, no exudate EARS, NOSE, THROAT: NECK: Normal range of motion, supple without lymphadenopathy LUNGS: scattered crackles, diminished bases HEART: Regular rate and rhythm, normal S1 and S2 without murmur, rub or gallop. ABDOMEN: Soft, obese nontender, not distended, normoactive bowel sounds, no guarding LOWER EXTREMITIES: 2+ dorsalis pedis pulses, warm, well-perfused. No calf tenderness. 1+ dependent edema NEUROLOGICAL: Cranial nerves II-XII intact. Non focal exam PSYCHIATRIC: Cooperative. pleasant A/ 67 y/o woman with CHF, COPD (supposed to be on home o2) now with hypercapnic resp failure 2/2 Influenza A and component of COPD exacerbation P/ -Cont NIV, adjust for normocapnea/pH, appears chronic retainer, keep Spo2 92 -Tamiflu, LVQ for now, ID consulted -gentle diuresis -Duonebs, Medrol IV , can d/c inhaled steroids while on IV -restart home PO meds when able to take -glycemic control, if unable to take metformin start Insulin, likely will need with steroids -serial trop and BNP given CHFhx -TTE -SQH, no indication for PPI ICU monitoring Doug Slade [id number] Critical Care Total Critical Care Time (in minutes): 35 Critical Care Statement: The care of this patient involved high complexity decision making to prevent further life threatening deterioration of the patient 's condition and/or to evaluate & treat vital organ system(s) failure or risk of failure.
[2017-12-24 05:02] VITALS: BMI 50.8
[2017-12-24] MEDS: HEPARIN NA (PORCINE) 5,000 UNITS/ML 1ML VIAL SQ SCH ×3 (05:22→21:17)
[2017-12-24 05:36] LABS: ARTERIAL BLD GAS O2 SATURATION 92.8 % (90-98.9); ARTERIAL BLOOD GAS BASE EXCESS -2.6 meq/l (-2-2)
[2017-12-24 05:37] LABS: ALLENS TEST POSITIVE
[2017-12-24 05:39] LABS: ARTERIAL BLOOD GAS PCO2 71.4 mmHg (35-45)
[2017-12-24] MEDS: methylPREDNISolone NA SUCC 40 MG/1 ML VIAL IVPUSH SCH ×2 (05:44→17:00)
[2017-12-24] MEDS: INSULIN SLIDING SCALE (NOVOLOG) 1 VIAL SQ SCH ×4 (06:44→21:20)
[2017-12-24 07:40] LABS: HEMATOCRIT 37.5 % (32.4-45.2); HEMOGLOBIN 11.7 GM/dL (10.7-15.3); LYMPH % 1.6 % (8-40); MCH 27.1 pg (25.7-33.7); MCHC 31.2 g/dl (32.0-36.0); MEAN PLT VOLUME 8.7 fl (7.5-11.1); NEUT % 97.4 % (42.8-82.8); PLATELET COUNT 282 K/MM3 (134-434); RBC 4.31 M/mm3 (3.60-5.2); RDW 16.4 % (11.6-15.6); WHITE BLOOD COUNT 16.5 K/mm3 (4.0-10.0)
[2017-12-24 07:50] LABS: BLOOD UREA NITROGEN 16 mg/dL (7-18); PHOSPHOROUS 5.2 mg/dL (2.5-4.9)
[2017-12-24 08:12] LABS: ANION GAP 11 (8-16); CALCIUM 7.5 mg/dL (8.5-10.1); CHLORIDE 95 mmol/L (98-107); CO2 27 mmol/L (21-32); MAGNESIUM 2.1 mg/dL (1.8-2.4); SODIUM 133 mmol/L (136-145)
[2017-12-24 08:38] LABS: GLUCOSE,RANDOM 370 mg/dL (74-106)
[2017-12-24] MEDS ORDERED: INSULIN (NOVOLOG) ASPART 100 UNITS/ML 10ML VIAL SQ ONE (08:45)
[2017-12-24] MEDS ORDERED: INSULIN DETEMIR 100 UNITS/ML MDV SQ ONE (09:10)
--- NOTE | 2017-12-24 09:12 | PN ---
Progress Note, Physician Chief Complaint: Admitted with 1 day H/O Gradually worsening SOB improving on BiPAP denies any chest pain. History of Present Illness: 67 yrs old F H/O advanced COPD on Home O2 Non Complaint, CAD, HTN, T2DM, present with 1 day H/o worsening SOB< fever and Cough on arrival in mixed Hypoxic and Hypercarbic respiratory failure elevated TWBC , Influenza A a + B/L Pulmonary infiltrate , EKG QTC prolongation recived IV Dexmethasone, nebs, IV Levofloxacin and Tamiflu with BIPAP, Hypoxia improved admitted in ICU for further management. - Current Medication List Current Medications: Active Medications Albuterol/Ipratropium (Duoneb -) 1 amp NEB Q4H PRN PRN Reason: SHORTNESS OF BREATH Chlorhexidine Gluconate (Hibiclens For Decolonization -) 1 applic TP HS [facility] Furosemide (Lasix Injection -) 40 mg IVPUSH DAILY [facility] Gabapentin (Neurontin -) 300 mg PO HS [facility] Heparin Sodium (Porcine) (Heparin -) 5,000 unit SQ TID [facility] Last Admin: 12/24/17 05:22 Dose: 5,000 unit Insulin Aspart (Novolog Vial Sliding Scale -) 1 vial SQ ACHS [facility] PRN Reason: Protocol Last Admin: 12/24/17 06:44 Dose: 12 units Losartan Potassium (Cozaar -) 100 mg PO DAILY [facility] Methylprednisolone Sodium Succinate (Solu-Medrol -) 40 mg IVPUSH Q12H [facility] Last Admin: 12/24/17 05:44 Dose: Not Given Mupirocin (Bactroban Ointment (For Decolonization) -) 1 applic NS BID [facility] Stop: 12/29/17 09:59 Oseltamivir Phosphate (Tamiflu -) 75 mg PO BID [facility] Stop: 12/28/17 10:01 Fluticasone/Salmeterol (Advair 100mcg/50mcg -) 1 puff IH BID [facility] - Objective Vital Signs: Vital Signs Temperature 97.8 F 12/24/17 04:50 Pulse Rate 91 H 12/24/17 08:50 Respiratory Rate 16 12/24/17 08:00 Blood Pressure 113/79 12/24/17 08:00 O2 Sat by Pulse Oximetry (%) 98 12/24/17 08:50 Elderly F not in acute distress, pn BIPAP c/p Back pain HEENT: MM dry. mild anemia, PERRLA EOMI NECK; No JVd , No Bruit CHEST: B/L Diffuse wheezes CVS: S1S2 R no m/g/r ABD: Obese, no distention, non tender Bs + EXT: Trace edema feet, no calf tenderness, no assumetry B/L Knee Pain. Pulses + GYNECOLOGICAL ASSISTANT: AOx3 non focal Labs: CBC, BMP 12/24/17 06:20 12/24/17 06:20 INR, PTT INR 1.19 (0.82-1.09) H 12/23/17 23:00 Microbiology 12/23/17 23:00 Influenza Types A,B Antigen (BRITT) - Final Nasopharyngeal Swab - Final ABG Results ABG pH 7.20 (7.35-7.45) L* 12/24/17 05:25 ABG pCO2 at Pt Temp 71.4 mmHg (35-45) H* 12/24/17 05:25 ABG pO2 at Pt Temp 81.0 mmHg (80-100) D 12/24/17 05:25 ABG HCO3 26.7 meq/L (22-26) H 12/24/17 05:25 ABG O2 Sat (Measured) 92.8 % (90-98.9) 12/24/17 05:25 ABG O2 Content 16.4 % vol (15-22) 12/24/17 05:25 ABG Base Excess -2.6 meq/l (-2-2) L 12/24/17 05:25 Laboratory - ....Imaging Chest X-ray: Report Reviewed (Pulmonary congestion Basilar infiltrates) EKG: Report Reviewed (HR 99 /Mt R, PR156 Qtc 559. axis 215 RBBB, No acute St T chnages) Problem List - Problems (1) Respiratory failure with hypoxia and hypercapnia Assessment/Plan: Know case of COPD non compliant with Home O2 present with Respiratory acidosis with Hypoxia nd Hypcarbia with fever , Influenza A +, ? B/L LL Infitrates Strept P AG -ve, Cultures are pending considering PCN allergy and QTC prolongation will start Aztrenam + Doxycycline Azithro is contraindicated with prolonged QTC F/I ID Input Code(s): J96.91 - RESPIRATORY FAILURE, UNSPECIFIED WITH HYPOXIA; J96.92 - RESPIRATORY FAILURE, UNSPECIFIED WITH HYPERCAPNIA Qualifiers: Chronicity: acute on chronic Qualified Code(s): J96.21 - Acute and chronic respiratory failure with hypoxia; J96.22 - Acute and chronic respiratory failure with hypercapnia; J96.22 - Acute and chronic respiratory failure with hypercapnia; J96.22 - Acute and chronic respiratory failure with hypercapnia (2) Chronic obstructive pulmonary disease with (acute) exacerbation Assessment/Plan: Present with COPD exacerbation, Cont Nebs IV abx and Respiratory management BIPAP as per Pulmonary Critical care consult Code(s): J44.1 - CHRONIC OBSTRUCTIVE PULMONARY DISEASE W (ACUTE) EXACERBATION (3) Influenza A Assessment/Plan: On tamiflu Code(s): J10.1 - FLU DUE TO OTH IDENT INFLUENZA VIRUS W OTH RESP MANIFEST (4) Pneumonia Assessment/Plan: Post Viral CABP recived Levofloxacin will sstart aztrenam and Doxycycline pending cultures Code(s): J18.9 - PNEUMONIA, UNSPECIFIED ORGANISM (5) CHF exacerbation Assessment/Plan: Elevated PrO BNP, Pulmonary congestion, no known EF will F/I ECHO and cardiology consult, recived Lasicx in the ED Code(s): I50.9 - HEART FAILURE, UNSPECIFIED (6) Uncontrolled diabetes mellitus Assessment/Plan: Hold PO Medsa add Levimir 15units with corretion dose insulin F/u accucheck HbA1C Code(s): E11.65 - TYPE 2 DIABETES MELLITUS WITH HYPERGLYCEMIA Qualifiers: Diabetes mellitus type: type 2 (7) HTN (hypertension) Assessment/Plan: Cont Home medication Code(s): I10 - ESSENTIAL (PRIMARY) HYPERTENSION (8) Morbid obesity with BMI of 50.0-59.9, adult Assessment/Plan: Nutritional consult as out patient Code(s): E66.01 - MORBID (SEVERE) OBESITY DUE TO EXCESS CALORIES; Z68.43 - BODY MASS INDEX (BMI) 50-59.9 , ADULT (9) CAD (coronary artery disease) of artery bypass graft Assessment/Plan: No C/O chest pain mildly elevated troponin I . , No acute St T cages add ASa F/ U Lipid serial CE and EKG cardiology consult. Code(s): I25.810 - ATHEROSCLEROSIS OF CABG W/O ANGINA PECTORIS (10) Elevated troponin I level Assessment/Plan: Elevated trop I no acute St T changes no chest pain most likely Demand ischemia will F/U Cardiology input add ASA, Lipid panel, TSH Code(s): R74.8 - ABNORMAL LEVELS OF OTHER SERUM ENZYMES
[2017-12-24] MEDS ORDERED: FUROSEMIDE 40 MG/4 ML INJECTABLE VIAL IVPUSH SCH (10:00)
[2017-12-24] MEDS ORDERED: LEVOFLOXACIN 750 MG IVPB 750 MG/150 ML BAG IVPB SCH (10:00)
--- NOTE | 2017-12-24 10:30 | EKG ---
Test Reason : Blood Pressure : / mmHG Vent. Rate : 099 BPM Atrial Rate : 099 BPM P-R Int : 156 ms QRS Dur : 152 ms QT Int : 436 ms P-R-T Axes : 021 211 041 degrees QTc Int : 559 ms NORMAL SINUS RHYTHM RIGHT SUPERIOR AXIS DEVIATION NON-SPECIFIC INTRA-VENTRICULAR CONDUCTION BLOCK ABNORMAL ECG WHEN COMPARED WITH ECG OF 21-JUL-2015 01:17, QUESTIONABLE CHANGE IN QRS AXIS Confirmed by KAMINI DARNELL, MAYNOR ([id number]) on 12/24/2017 10:29:34 AM Referred By: Confirmed By:MAYNOR SUÁREZ MD
[2017-12-24] MEDS ORDERED: ACETAMINOPHEN 1000 MG/100 ML VIAL (NON FORMULARY) IVPB ONE (10:54)
[2017-12-24] MEDS ORDERED: PT OWN MED DRAWER 7, Y5N ONE (11:26)
[2017-12-24] MEDS: LOSARTAN POTASSIUM 50 MG TABLET (FP) PO SCH (11:31)
[2017-12-24] MEDS: OSELTAMIVIR PHOSPHATE 75 MG CAPSULE PO SCH ×2 (11:32→21:17)
[2017-12-24] MEDS: INSULIN (NOVOLOG) ASPART 100 UNITS/ML 10ML VIAL SQ ONE ×2 (12:08→14:35)
--- NOTE | 2017-12-24 12:12 | PN ---
Teaching Attending Note Name of Resident: Jesus Bhakta ATTENDING PHYSICIAN STATEMENT I saw and evaluated the patient. I reviewed the resident's note and discussed the case with the resident. I agree with the resident's findings and plan as documented. SUBJECTIVE: Patient seen and examined in the ICU. Awake and alert on NIPPV. No pressors. Denies CP. SOB is better on NIPPV. Intake & Output 12/21/17 12/22/17 12/23/17 12/24/17 23:59 23:59 23:59 23:59 Intake Total 0 Output Total 1450 Balance -1450 Weight 350 lb 344 lb 2 oz Last Vital Signs Temp Pulse Resp BP Pulse Ox 98.6 F 86 19 133/91 99 12/24/17 10:00 12/24/17 10:00 12/24/17 10:00 12/24/17 10:00 12/24/17 11:24 Active Medications Albuterol/Ipratropium (Duoneb -) 1 amp NEB Q4H PRN PRN Reason: SHORTNESS OF BREATH Chlorhexidine Gluconate (Hibiclens For Decolonization -) 1 applic TP HS [facility] Furosemide (Lasix Injection -) 40 mg IVPUSH BIDLASIX [facility] Gabapentin (Neurontin -) 300 mg PO HS [facility] Heparin Sodium (Porcine) (Heparin -) 5,000 unit SQ TID [facility] Last Admin: 12/24/17 05:22 Dose: 5,000 unit Insulin Aspart (Novolog Vial Sliding Scale -) 1 vial SQ ACHS [facility] PRN Reason: Protocol Last Admin: 12/24/17 06:44 Dose: 12 units Insulin Aspart (Novolog Vial) 16 units SQ ONCE ONE PRN Reason: Protocol Stop: 12/24/17 12:16 Losartan Potassium (Cozaar -) 100 mg PO DAILY [facility] Last Admin: 12/24/17 11:31 Dose: 100 mg Methylprednisolone Sodium Succinate (Solu-Medrol -) 40 mg IVPUSH Q12H [facility] Last Admin: 12/24/17 05:44 Dose: Not Given Mupirocin (Bactroban Ointment (For Decolonization) -) 1 applic NS BID [facility] Stop: 12/29/17 09:59 Oseltamivir Phosphate (Tamiflu -) 75 mg PO BID [facility] Stop: 12/28/17 10:01 Last Admin: 01/25/18 11:32 Dose: 75 mg Saliva Substitute (Mouthkote Solution -) 1 applic MM DAILY [facility] Fluticasone/Salmeterol (Advair 100mcg/50mcg -) 1 puff IH BID [facility] GENERAL: Awake and alert on NIPPV HEAD: NCAT EYES: PERRL, EOMI, non injected sclera, no exudate EARS, NOSE, THROAT: NECK: Normal range of motion, supple without lymphadenopathy LUNGS: scattered crackles, diminished bases HEART: Regular rate and rhythm, normal S1 and S2 without murmur, rub or gallop. ABDOMEN: Soft, obese nontender, not distended, normoactive bowel sounds, no guarding LOWER EXTREMITIES: 2+ dorsalis pedis pulses, warm, well-perfused. No calf tenderness. 1+ dependent edema NEUROLOGICAL: Non-focal PSYCHIATRIC: Cooperative IMP: Acute on chronic hypoxic / hypercapneic failure CHF AE of COPD Influenza A P/ -NIPPV adjusted -Tamiflu -ABX per ID -Lasix -BD TX -Medrol -Glycemic control -Cardiac enzymes -VTE prophylaxis Dr Hollins Critical care time spent in reviewing chart, evaluating patient and formulating plan - 36 minutes.
--- NOTE | 2017-12-24 12:23 | CON.CARD ---
Consult Consult Specialty:: Cardiology Referred by:: Dr. Rivera Reason for Consultation:: Cardiac evaluation - History of Present Illness Chief Complaint: Respiratory distress History of Present Illness: Patient is a 67 year old female with underlying history of hypertension, diabetes mellitus and COPD who presents to [facility] via EMS with increased wheezing, fever and productive cough. She has history of CAD post CABG in 2007 at [facility]. She has not been seen by a dye tank tender after that. Currently, she was diagnosed with infuenza A and now admitted for further treatment with antibiotics and Tamiflu. She had productive yelllowish sputum. She denies chest pain or palpitations. She denies paroxysmal nocturnal dyspnea or orthopnea. She denies fever or chills. She denies nausea, vomiting, diarrhea or abdominal pain. She denies headache or lightheadedness. Of note, she passed out in the ambulance prior to coming in to the hospital. She is currently on BIPAP which she appears to be tolerating. - History Source History Provided By: Patient, Medical Record Limitations to Obtaining History: No Limitations - Past Medical History Cardio/Vascular: Yes: CAD, HTN. No: AFIB Pulmonary: Yes: COPD, O2 Dependent Endocrine: Yes: Diabetes Mellitus (Borderline) - Past Surgical History Past Surgical History: Yes: CABG - Alcohol/Substance Use Hx Alcohol Use: Yes (In the past) - Smoking History Smoking history: Former smoker Have you smoked in the past 12 months: No Home Medications - Allergies Allergies/Adverse Reactions: Allergies Allergy/AdvReac Type Severity Reaction Status Date / Time ibuprofen Allergy Verified 12/23/17 23:04 Penicillins Allergy Verified 12/23/17 23:04 - Home Medications Home Medications: Ambulatory Orders Amlodipine Besylate [Norvasc -] 10 mg PO DAILY 02/03/15 Losartan Potassium 100 mg PO DAILY 02/03/15 Salmeterol/Fluticasone [Advair 100Mcg/50Mcg -] 1 inh PO BID 02/03/15 Gabapentin 300 mg PO HS 12/23/17 Metformin HCl [Glucophage] 1,000 mg PO BID 12/23/17 Metoprolol Tartrate 25 mg PO DAILY 12/23/17 Family Disease History - Family Disease History Family Disease History: CA: Father (Colon CA), Other: Mother (Lupus) Review of Systems - Review of Systems Constitutional: denies: Chills, Fever Cardiovascular: reports: Shortness of Breath. denies: Chest Pain, Palpitations Respiratory: reports: Cough, SOB, SOB on Exertion. denies: Hemoptysis, Orthopnea, PND Gastrointestinal: denies: Abdominal Pain, Constipation, Diarrhea, Dysphagia, Melena, Nausea, Rectal Bleeding, Vomiting Neurological: denies: Dizziness, Headache, Seizure, Syncope Vital Signs: Vital Signs Temperature 98.6 F 12/24/17 10:00 Pulse Rate 86 12/24/17 10:00 Respiratory Rate 19 12/24/17 10:00 Blood Pressure 133/91 12/24/17 10:00 O2 Sat by Pulse Oximetry (%) 99 12/24/17 11:24 Neck: Yes: Supple Respiratory: Yes: Cough, Diminished, On BiPap, SOB Gastrointestinal: Yes: Normal Bowel Sounds, Soft, Abdomen, Obese. No: Tenderness Cardiovascular: Yes: Regular Rate and Rhythm JVD: No Carotid Bruit: No PMI: Non-Displaced Heart Sounds: Yes: S1, S2. No: Gallop Edema: No - Other Data Labs, Other Data: CBC, BMP 12/24/17 06:20 12/24/17 06:20 INR, PTT INR 1.19 (0.82-1.09) H 12/23/17 23:00 Troponin, BNP 12/23/17 12/24/17 12/24/17 23:00 06:20 06:20 Troponin I 0.03 Cancelled 0.38 H B-Natriuretic Peptide 1823.76 H Laboratory Results - last 24 hr 12/23/17 12/23/17 12/23/17 23:00 23:00 23:00 WBC 16.1 H RBC 4.47 Hgb 12.3 Hct 38.6 MCV 86.5 MCH 27.5 MCHC 31.7 L RDW 16.1 H Plt Count 312 D MPV 8.8 Neutrophils % 81.7 Lymphocytes % 12.8 D Monocytes % 3.9 D Eosinophils % 1.1 D Basophils % 0.5 PT with INR 13.40 H INR 1.19 H Puncture Site Patient Temperature ABG pH ABG pCO2 at Pt Temp ABG pO2 at Pt Temp ABG HCO3 ABG O2 Sat (Measured) ABG O2 Content ABG Base Excess Dmitriy Test O2 Delivery Device Oxygen Flow Rate Vent Mode Vent Rate PEEP Pressure Support Vent Sodium Potassium Chloride Carbon Dioxide Anion Gap BUN Creatinine Creat Clearance w eGFR POC Glucometer Random Glucose Lactic Acid Calcium Phosphorus Magnesium Total Bilirubin AST ALT Alkaline Phosphatase Creatine Kinase Creatine Kinase Index CK-MB (CK-2) Troponin I B-Natriuretic Peptide Total Protein Albumin Urine Color Sabrina Urine Appearance Cloudy Urine pH 5.0 Ur Specific [place] 1.023 Urine Protein 3+ H Urine Glucose (UA) 3+ H Urine Ketones Trace H Urine Blood Negative Urine Nitrite Negative Urine Bilirubin Negative Urine Urobilinogen 4.0 e.u/dl H Ur Leukocyte Esterase Negative Urine WBC (Auto) 34 Urine RBC (Auto) 10 Ur Epithelial Cells Rare Urine Bacteria Few Hyaline Casts 4 Urine Mucus Rare 12/23/17 12/23/17 12/23/17 23:00 23:00 23:00 WBC RBC Hgb Hct MCV MCH MCHC RDW Plt Count MPV Neutrophils % Lymphocytes % Monocytes % Eosinophils % Basophils % PT with INR INR Puncture Site Right radial Patient Temperature 102.6 ABG pH 7.13 L* D ABG pCO2 at Pt Temp 87.6 H* D ABG pO2 at Pt Temp 378.0 H* ABG HCO3 26.5 H ABG O2 Sat (Measured) 99.3 H ABG O2 Content 17.9 ABG Base Excess -3.8 L Dmitriy Test Positive O2 Delivery Device Bipap Oxygen Flow Rate 100% o2 Vent Mode S/t Vent Rate 16 PEEP Pressure Support Vent 15/5 Sodium 134 L Potassium 4.4 Chloride 95 L Carbon Dioxide 27 Anion Gap 12 BUN 12 Creatinine 1.1 H Creat Clearance w eGFR 49.39 POC Glucometer Random Glucose 363 H* Lactic Acid 1.8 Calcium 8.1 L Phosphorus Magnesium 1.7 L Total Bilirubin 1.1 H D AST 33 ALT 31 Alkaline Phosphatase 85 Creatine Kinase 308 H Creatine Kinase Index 1.2 CK-MB (CK-2) 3.771 H Troponin I 0.03 B-Natriuretic Peptide 1823.76 H Total Protein 7.8 Albumin 3.3 L Urine Color Urine Appearance Urine pH Ur Specific [place] Urine Protein Urine Glucose (UA) Urine Ketones Urine Blood Urine Nitrite Urine Bilirubin Urine Urobilinogen Ur Leukocyte Esterase Urine WBC (Auto) Urine RBC (Auto) Ur Epithelial Cells Urine Bacteria Hyaline Casts Urine Mucus 12/24/17 12/24/17 12/24/17 05:25 06:20 06:20 WBC RBC Hgb Hct MCV MCH MCHC RDW Plt Count MPV Neutrophils % Lymphocytes % Monocytes % Eosinophils % Basophils % PT with INR INR Puncture Site Right radial Patient Temperature ABG pH 7.20 L* ABG pCO2 at Pt Temp 71.4 H* ABG pO2 at Pt Temp 81.0 D ABG HCO3 26.7 H ABG O2 Sat (Measured) 92.8 ABG O2 Content 16.4 ABG Base Excess -2.6 L Dmitriy Test Positive O2 Delivery Device Bipap Oxygen Flow Rate 45% Vent Mode S/t Vent Rate 20 PEEP 0.0 Pressure Support Vent 16/6 Sodium Potassium Chloride Carbon Dioxide Anion Gap BUN Creatinine Creat Clearance w eGFR POC Glucometer Random Glucose Lactic Acid 1.3 Calcium Phosphorus Magnesium Total Bilirubin AST ALT Alkaline Phosphatase Creatine Kinase Cancelled Creatine Kinase Index CK-MB (CK-2) Troponin I Cancelled B-Natriuretic Peptide Total Protein Albumin Urine Color Urine Appearance Urine pH Ur Specific [place] Urine Protein Urine Glucose (UA) Urine Ketones Urine Blood Urine Nitrite Urine Bilirubin Urine Urobilinogen Ur Leukocyte Esterase Urine WBC (Auto) Urine RBC (Auto) Ur Epithelial Cells Urine Bacteria Hyaline Casts Urine Mucus 12/24/17 12/24/17 12/24/17 06:20 06:20 06:23 WBC 16.5 H RBC 4.31 Hgb 11.7 Hct 37.5 MCV 87.0 MCH 27.1 MCHC 31.2 L RDW 16.4 H Plt Count 282 MPV 8.7 Neutrophils % 97.4 H Lymphocytes % 1.6 L D Monocytes % 1.0 L Eosinophils % 0.0 D Basophils % 0.0 PT with INR INR Puncture Site Patient Temperature ABG pH ABG pCO2 at Pt Temp ABG pO2 at Pt Temp ABG HCO3 ABG O2 Sat (Measured) ABG O2 Content ABG Base Excess Dmitriy Test O2 Delivery Device Oxygen Flow Rate Vent Mode Vent Rate PEEP Pressure Support Vent Sodium 133 L Potassium 5.0 Chloride 95 L Carbon Dioxide 27 Anion Gap 11 BUN 16 Creatinine 1.0 Creat Clearance w eGFR POC Glucometer > 400 Random Glucose 370 H* Lactic Acid Calcium 7.5 L Phosphorus 5.2 H Magnesium 2.1 Total Bilirubin AST ALT Alkaline Phosphatase Creatine Kinase 333 H Creatine Kinase Index 1.8 CK-MB (CK-2) 6.119 H Troponin I 0.38 H B-Natriuretic Peptide Total Protein Albumin Urine Color Urine Appearance Urine pH Ur Specific [place] Urine Protein Urine Glucose (UA) Urine Ketones Urine Blood Urine Nitrite Urine Bilirubin Urine Urobilinogen Ur Leukocyte Esterase Urine WBC (Auto) Urine RBC (Auto) Ur Epithelial Cells Urine Bacteria Hyaline Casts Urine Mucus Sinus rhythm with nonspecific intraventricular conduction delay and poor R progression. Echo: Report Reviewed (Moderate LV systolic dysfunction, global hypokinesia, trace tricuspid valve regurgitation) Imaging - Results Chest X-ray: Report Reviewed (Prominent congestive changes) EKG: Report Reviewed Problem List - Problems (1) Demand ischemia Code(s): I24.8 - OTHER FORMS OF ACUTE ISCHEMIC HEART DISEASE (2) CAD (coronary artery disease) of artery bypass graft Code(s): I25.810 - ATHEROSCLEROSIS OF CABG W/O ANGINA PECTORIS Qualifiers: [place] vs. transplanted heart: [place] heart Associated angina: without angina Qualified Code(s): I25.810 - Atherosclerosis of coronary artery bypass graft(s) without angina pectoris (3) Elevated troponin I level Code(s): R74.8 - ABNORMAL LEVELS OF OTHER SERUM ENZYMES (4) HTN (hypertension) Code(s): I10 - ESSENTIAL (PRIMARY) HYPERTENSION Qualifiers: Hypertension type: essential hypertension Qualified Code(s): I10 - Essential (primary) hypertension (5) Influenza A Code(s): J10.1 - FLU DUE TO OTH IDENT INFLUENZA VIRUS W OTH RESP MANIFEST (6) Morbid obesity with BMI of 50.0-59.9, adult Code(s): E66.01 - MORBID (SEVERE) OBESITY DUE TO EXCESS CALORIES; Z68.43 - BODY MASS INDEX (BMI) 50-59.9 , ADULT (7) Respiratory failure with hypoxia and hypercapnia Code(s): J96.91 - RESPIRATORY FAILURE, UNSPECIFIED WITH HYPOXIA; J96.92 - RESPIRATORY FAILURE, UNSPECIFIED WITH HYPERCAPNIA Qualifiers: Chronicity: acute on chronic Qualified Code(s): J96.21 - Acute and chronic respiratory failure with hypoxia; J96.22 - Acute and chronic respiratory failure with hypercapnia; J96.22 - Acute and chronic respiratory failure with hypercapnia; J96.22 - Acute and chronic respiratory failure with hypercapnia (8) Uncontrolled diabetes mellitus Code(s): E11.65 - TYPE 2 DIABETES MELLITUS WITH HYPERGLYCEMIA Qualifiers: Diabetes mellitus type: type 2 Diabetes mellitus complication status: without complication Diabetes mellitus predatory animal exterminator insulin use: without predatory animal exterminator use Qualified Code(s): E11.65 - Type 2 diabetes mellitus with hyperglycemia (9) COPD exacerbation Code(s): J44.1 - CHRONIC OBSTRUCTIVE PULMONARY DISEASE W (ACUTE) EXACERBATION (10) Shortness of breath Code(s): R06.02 - SHORTNESS OF BREATH Assessment/Plan 1. Clinical presentation with respiratory failure - (+) Influenza A 2. Coronary artery disease post CABG, angina pectoris - elevated troponin due to demand ischemia 3. LV systolic dysfunction - acute on chronic class II NYHA classification heart failure 4. Hypertension 5. Borderline diabetes mellitus 6. COPD PLAN: 1. Continue BIPAP. Continue Tamiflu and antibiotic support. Continue steroid taper and bronchodilators 2. Transthoracic echocardiography result was noted. Further cardiac work up including nuclear myocardial perfusion can be done as outpatient. 3. Continue Losartan as tolerated. Consider Carvedilol 3.125 mg BID when respiratory status improves 4. Add ASA 81 mg once a day 5. Check fasting lipid panel and start statin if appropriate 6. Trend troponins Further plans are to follow Fitz Arboleda MD
--- NOTE | 2017-12-24 13:59 | PN ---
Physical Exam: SUBJECTIVE: Patient seen and examined in ICU On Bipap. Increased to IPAP OF 18 AND RATE of 25 today. Patient feels improved from yesterday. OBJECTIVE: Vital Signs Period Temp Pulse Resp BP Sys/Rueda Pulse Ox Last 24 Hr 97.8 F-102.6 F 83-117 16-32 105-158/54-102 88-99 GENERAL: Awake alert on bipap, appears comfortable HEAD: NCAT EYES: PERRL, EOMI, non injected sclera, no exudate NECK: Normal range of motion, supple without lymphadenopathy LUNGS: Breath sound equal, Minor crackles throughout, Decreased sounds at the bases, no accessory muscle use HEART: Regular rate and rhythm, normal S1 and S2 without murmur, rub or gallop. ABDOMEN: Soft, obese nontender, not distended, normoactive bowel sounds, no guarding LOWER EXTREMITIES: 2+ dorsalis pedis pulses, warm, well-perfused. No calf tenderness. PSYCHIATRIC: Cooperative. pleasant Laboratory Results - last 24 hr 12/23/17 12/23/17 12/23/17 23:00 23:00 23:00 WBC 16.1 H RBC 4.47 Hgb 12.3 Hct 38.6 MCV 86.5 MCH 27.5 MCHC 31.7 L RDW 16.1 H Plt Count 312 D MPV 8.8 Neutrophils % 81.7 Lymphocytes % 12.8 D Monocytes % 3.9 D Eosinophils % 1.1 D Basophils % 0.5 PT with INR 13.40 H INR 1.19 H Puncture Site Patient Temperature ABG pH ABG pCO2 at Pt Temp ABG pO2 at Pt Temp ABG HCO3 ABG O2 Sat (Measured) ABG O2 Content ABG Base Excess Dmitriy Test O2 Delivery Device Oxygen Flow Rate Vent Mode Vent Rate PEEP Pressure Support Vent Sodium Potassium Chloride Carbon Dioxide Anion Gap BUN Creatinine Creat Clearance w eGFR POC Glucometer Random Glucose Lactic Acid Calcium Phosphorus Magnesium Total Bilirubin AST ALT Alkaline Phosphatase Creatine Kinase Creatine Kinase Index CK-MB (CK-2) Troponin I B-Natriuretic Peptide Total Protein Albumin Urine Color Sabrina Urine Appearance Cloudy Urine pH 5.0 Ur Specific [place] 1.023 Urine Protein 3+ H Urine Glucose (UA) 3+ H Urine Ketones Trace H Urine Blood Negative Urine Nitrite Negative Urine Bilirubin Negative Urine Urobilinogen 4.0 e.u/dl H Ur Leukocyte Esterase Negative Urine WBC (Auto) 34 Urine RBC (Auto) 10 Ur Epithelial Cells Rare Urine Bacteria Few Hyaline Casts 4 Urine Mucus Rare 12/23/17 12/23/17 12/23/17 23:00 23:00 23:00 WBC RBC Hgb Hct MCV MCH MCHC RDW Plt Count MPV Neutrophils % Lymphocytes % Monocytes % Eosinophils % Basophils % PT with INR INR Puncture Site Right radial Patient Temperature 102.6 ABG pH 7.13 L* D ABG pCO2 at Pt Temp 87.6 H* D ABG pO2 at Pt Temp 378.0 H* ABG HCO3 26.5 H ABG O2 Sat (Measured) 99.3 H ABG O2 Content 17.9 ABG Base Excess -3.8 L Dmitriy Test Positive O2 Delivery Device Bipap Oxygen Flow Rate 100% o2 Vent Mode S/t Vent Rate 16 PEEP Pressure Support Vent 15/5 Sodium 134 L Potassium 4.4 Chloride 95 L Carbon Dioxide 27 Anion Gap 12 BUN 12 Creatinine 1.1 H Creat Clearance w eGFR 49.39 POC Glucometer Random Glucose 363 H* Lactic Acid 1.8 Calcium 8.1 L Phosphorus Magnesium 1.7 L Total Bilirubin 1.1 H D AST 33 ALT 31 Alkaline Phosphatase 85 Creatine Kinase 308 H Creatine Kinase Index 1.2 CK-MB (CK-2) 3.771 H Troponin I 0.03 B-Natriuretic Peptide 1823.76 H Total Protein 7.8 Albumin 3.3 L Urine Color Urine Appearance Urine pH Ur Specific [place] Urine Protein Urine Glucose (UA) Urine Ketones Urine Blood Urine Nitrite Urine Bilirubin Urine Urobilinogen Ur Leukocyte Esterase Urine WBC (Auto) Urine RBC (Auto) Ur Epithelial Cells Urine Bacteria Hyaline Casts Urine Mucus 12/24/17 12/24/17 12/24/17 05:25 06:20 06:20 WBC RBC Hgb Hct MCV MCH MCHC RDW Plt Count MPV Neutrophils % Lymphocytes % Monocytes % Eosinophils % Basophils % PT with INR INR Puncture Site Right radial Patient Temperature ABG pH 7.20 L* ABG pCO2 at Pt Temp 71.4 H* ABG pO2 at Pt Temp 81.0 D ABG HCO3 26.7 H ABG O2 Sat (Measured) 92.8 ABG O2 Content 16.4 ABG Base Excess -2.6 L Dmitriy Test Positive O2 Delivery Device Bipap Oxygen Flow Rate 45% Vent Mode S/t Vent Rate 20 PEEP 0.0 Pressure Support Vent 16/6 Sodium Potassium Chloride Carbon Dioxide Anion Gap BUN Creatinine Creat Clearance w eGFR POC Glucometer Random Glucose Lactic Acid 1.3 Calcium Phosphorus Magnesium Total Bilirubin AST ALT Alkaline Phosphatase Creatine Kinase Cancelled Creatine Kinase Index CK-MB (CK-2) Troponin I Cancelled B-Natriuretic Peptide Total Protein Albumin Urine Color Urine Appearance Urine pH Ur Specific [place] Urine Protein Urine Glucose (UA) Urine Ketones Urine Blood Urine Nitrite Urine Bilirubin Urine Urobilinogen Ur Leukocyte Esterase Urine WBC (Auto) Urine RBC (Auto) Ur Epithelial Cells Urine Bacteria Hyaline Casts Urine Mucus 12/24/17 12/24/17 12/24/17 06:20 06:20 06:23 WBC 16.5 H RBC 4.31 Hgb 11.7 Hct 37.5 MCV 87.0 MCH 27.1 MCHC 31.2 L RDW 16.4 H Plt Count 282 MPV 8.7 Neutrophils % 97.4 H Lymphocytes % 1.6 L D Monocytes % 1.0 L Eosinophils % 0.0 D Basophils % 0.0 PT with INR INR Puncture Site Patient Temperature ABG pH ABG pCO2 at Pt Temp ABG pO2 at Pt Temp ABG HCO3 ABG O2 Sat (Measured) ABG O2 Content ABG Base Excess Dmitriy Test O2 Delivery Device Oxygen Flow Rate Vent Mode Vent Rate PEEP Pressure Support Vent Sodium 133 L Potassium 5.0 Chloride 95 L Carbon Dioxide 27 Anion Gap 11 BUN 16 Creatinine 1.0 Creat Clearance w eGFR POC Glucometer > 400 Random Glucose 370 H* Lactic Acid Calcium 7.5 L Phosphorus 5.2 H Magnesium 2.1 Total Bilirubin AST ALT Alkaline Phosphatase Creatine Kinase 333 H Creatine Kinase Index 1.8 CK-MB (CK-2) 6.119 H Troponin I 0.38 H B-Natriuretic Peptide Total Protein Albumin Urine Color Urine Appearance Urine pH Ur Specific [place] Urine Protein Urine Glucose (UA) Urine Ketones Urine Blood Urine Nitrite Urine Bilirubin Urine Urobilinogen Ur Leukocyte Esterase Urine WBC (Auto) Urine RBC (Auto) Ur Epithelial Cells Urine Bacteria Hyaline Casts Urine Mucus 12/24/17 11:51 WBC RBC Hgb Hct MCV MCH MCHC RDW Plt Count MPV Neutrophils % Lymphocytes % Monocytes % Eosinophils % Basophils % PT with INR INR Puncture Site Patient Temperature ABG pH ABG pCO2 at Pt Temp ABG pO2 at Pt Temp ABG HCO3 ABG O2 Sat (Measured) ABG O2 Content ABG Base Excess Dmitriy Test O2 Delivery Device Oxygen Flow Rate Vent Mode Vent Rate PEEP Pressure Support Vent Sodium Potassium Chloride Carbon Dioxide Anion Gap BUN Creatinine Creat Clearance w eGFR POC Glucometer > 400 Random Glucose Lactic Acid Calcium Phosphorus Magnesium Total Bilirubin AST ALT Alkaline Phosphatase Creatine Kinase Creatine Kinase Index CK-MB (CK-2) Troponin I B-Natriuretic Peptide Total Protein Albumin Urine Color Urine Appearance Urine pH Ur Specific [place] Urine Protein Urine Glucose (UA) Urine Ketones Urine Blood Urine Nitrite Urine Bilirubin Urine Urobilinogen Ur Leukocyte Esterase Urine WBC (Auto) Urine RBC (Auto) Ur Epithelial Cells Urine Bacteria Hyaline Casts Urine Mucus Active Medications Generic Name Dose Route Start Last Admin Trade Name Freq PRN Reason Stop Dose Admin Albuterol/Ipratropium 1 amp 12/24/17 04:31 Duoneb - NEB Q4H PRN SHORTNESS OF BREATH Chlorhexidine Gluconate 1 applic 12/24/17 22:00 Hibiclens For Decolonization - TP HS KIMBERLY Furosemide 40 mg 12/24/17 14:00 Lasix Injection - IVPUSH BIDLASIX KIMBERLY Gabapentin 300 mg 12/24/17 22:00 Neurontin - PO HS KIMBERLY Heparin Sodium (Porcine) 5,000 unit 12/24/17 06:00 12/24/17 05:22 Heparin - SQ 5,000 unit TID KIMBERLY Administration Insulin Aspart 1 vial 12/24/17 07:00 12/24/17 06:44 Novolog Vial Sliding Scale - SQ 12 units ACHS KIMBERLY Administration Protocol Losartan Potassium 100 mg 12/24/17 10:00 12/24/17 11:31 Cozaar - PO 100 mg DAILY KIMBERLY Administration Methylprednisolone Sodium Succinate 40 mg 12/24/17 05:45 12/24/17 05:44 Solu-Medrol - IVPUSH Not Given Q12H KIMBERLY Mupirocin 1 applic 12/24/17 10:00 Bactroban Ointment (For Decolonization) - NS 12/29/17 09:59 BID KIMBERLY Oseltamivir Phosphate 75 mg 12/24/17 10:00 12/24/17 11:32 Tamiflu - PO 12/28/17 10:01 75 mg BID KIMBERLY Administration Saliva Substitute 1 applic 12/24/17 11:00 [place] Solution - MM DAILY KIMBERLY Fluticasone/Salmeterol 1 puff 12/24/17 10:00 Advair 100mcg/50mcg - IH BID KIMBERLY ASSESSMENT/PLAN: 67 year old F with pmh of morbid obesity, HTn, DM, COPD presented with 2 day hx of wheezing, fever, dyspnea admitted to ICU for acute hypoxic hypercapnic respiratory failure #Pulm Acute hypoxic hypercapnic respiratory failure Hx of COPD -Continue Advair -Duonebs prn -Solumederol 40 q12 -Continue Bipap, wean as tolerated. #CV CHF -lasix 40 mg iv bid -Continue Losartan 100 mg po daily #ID Influenza A -Continue Tamiflu -Droplet precautions #FEN/GI -No IVF -wnl -NPO #PPx -Heparin 5000 u sq tid Dispo: Continue ICU level of care Visit type - Emergency Visit Emergency Visit: Yes ED Registration Date: 12/24/17 Care time: The patient presented to the Emergency Department on the above date and was hospitalized for further evaluation of their emergent condition. - New Patient This patient is new to me today: No - Critical Care Critical Care patient: Yes Total Critical Care Time (in minutes): 45 Critical Care Statement: The care of this patient involved high complexity decision making to prevent further life threatening deterioration of the patient 's condition and/or to evaluate & treat vital organ system(s) failure or risk of failure.
[2017-12-24] MEDS: LYTES/YERBA SANTA 240 ML BOTTLE MM SCH (14:33)
[2017-12-24] MEDS: FLUTICASONE/SALMETEROL 100 MCG/50 MCG DISKUS IH SCH ×2 (14:33→21:18)
[2017-12-24 15:23] LABS: ARTERIAL BLD GAS O2 SATURATION 97.5 % (90-98.9); ARTERIAL BLOOD GAS BASE EXCESS 1.6 meq/l (-2-2); ARTERIAL BLOOD GAS pH 7.27 (7.35-7.45)
[2017-12-24 15:26] LABS: ALLENS TEST POSITIVE
[2017-12-24 15:28] LABS: ARTERIAL BLOOD GAS PCO2 66.4 mmHg (35-45)
--- NOTE | 2017-12-24 16:35 | CON.ID ---
Consult Consult Specialty:: infectious diseases Reason for Consultation:: pna,resp failure infulenza - History of Present Illness Chief Complaint: sob History of Present Illness: 67 year old female with underlying history of hypertension, diabetes mellitus and COPD who presents to [facility] via EMS with increased wheezing, fever and productive cough. She has history of CAD post CABG patient on work up found to have inflenza a positive and on further work up found to have infiltrates in the lung patients brother in room mentions that she was sick for few days before but she worsened quickly and was brought to the hospital patient is obese and now she is on bipap , patient is not on oxygen or on bipap at home - History Source History Provided By: Patient, Family Member Limitations to Obtaining History: Clinical Condition - Past Medical History Cardio/Vascular: Yes: CAD, HTN. No: AFIB Pulmonary: Yes: COPD, O2 Dependent ...: No Endocrine: Yes: Diabetes Mellitus (Borderline) - Past Surgical History Past Surgical History: Yes: CABG - Alcohol/Substance Use Hx Alcohol Use: Yes (In the past) - Smoking History Smoking history: Former smoker Have you smoked in the past 12 months: No Home Medications - Allergies Allergies/Adverse Reactions: Allergies Allergy/AdvReac Type Severity Reaction Status Date / Time ibuprofen Allergy Verified 12/23/17 23:04 Penicillins Allergy Verified 12/23/17 23:04 - Home Medications Home Medications: Ambulatory Orders Amlodipine Besylate [Norvasc -] 10 mg PO DAILY 02/03/15 Losartan Potassium 100 mg PO DAILY 02/03/15 Salmeterol/Fluticasone [Advair 100Mcg/50Mcg -] 1 inh PO BID 02/03/15 Gabapentin 300 mg PO HS 12/23/17 Metformin HCl [Glucophage] 1,000 mg PO BID 12/23/17 Metoprolol Tartrate 25 mg PO DAILY 12/23/17 Family Disease History - Family Disease History Family Disease History: CA: Father (Colon CA), Other: Mother (Lupus) Review of Systems - Review of Systems Constitutional: reports: No Symptoms Eyes: reports: No Symptoms HENT: reports: No Symptoms Neck: reports: No Symptoms Cardiovascular: reports: No Symptoms Respiratory: reports: SOB, SOB on Exertion, Wheezing Gastrointestinal: reports: No Symptoms Genitourinary: reports: No Symptoms Musculoskeletal: reports: No Symptoms Integumentary: reports: No Symptoms Neurological: reports: No Symptoms Endocrine: reports: No Symptoms Hematology/Lymphatic: reports: No Symptoms Psychiatric: reports: No Symptoms Physical Exam Vital Signs: Vital Signs Temperature 99.0 F 12/24/17 14:00 Pulse Rate 88 12/24/17 14:00 Respiratory Rate 25 H 12/24/17 14:00 Blood Pressure 117/72 12/24/17 14:00 O2 Sat by Pulse Oximetry (%) 100 12/24/17 14:23 Constitutional: Yes: Obese, Other Eyes: Yes: Conjunctiva Clear Neck: Yes: Supple, Trachea Midline Cardiovascular: Yes: Regular Rate and Rhythm Respiratory: Yes: On BiPap, Poor Air Entry, Rhonchi, Other Gastrointestinal: Yes: Normal Bowel Sounds, Soft Musculoskeletal: Yes: WNL Extremities: Yes: WNL Neurological: Yes: Alert, Other Psychiatric: Yes: Other Labs: CBC, BMP 12/24/17 06:20 12/24/17 06:20 Imaging - Results Chest X-ray: Report Reviewed, Image Reviewed Assessment/Plan Problem List - Problems (1) Demand ischemia Code(s): I24.8 - OTHER FORMS OF ACUTE ISCHEMIC HEART DISEASE (2) CAD (coronary artery disease) of artery bypass graft Code(s): I25.810 - ATHEROSCLEROSIS OF CABG W/O ANGINA PECTORIS Qualifiers: [place] vs. transplanted heart: [place] heart Associated angina: without angina Qualified Code(s): I25.810 - Atherosclerosis of coronary artery bypass graft(s) without angina pectoris (3) Elevated troponin I level Code(s): R74.8 - ABNORMAL LEVELS OF OTHER SERUM ENZYMES (4) HTN (hypertension) Code(s): I10 - ESSENTIAL (PRIMARY) HYPERTENSION Qualifiers: Hypertension type: essential hypertension Qualified Code(s): I10 - Essential (primary) hypertension (5) Influenza A Code(s): J10.1 - FLU DUE TO OTH IDENT INFLUENZA VIRUS W OTH RESP MANIFEST (6) Morbid obesity with BMI of 50.0-59.9, adult Code(s): E66.01 - MORBID (SEVERE) OBESITY DUE TO EXCESS CALORIES; Z68.43 - BODY MASS INDEX (BMI) 50-59.9 , ADULT (7) Respiratory failure with hypoxia and hypercapnia Code(s): J96.91 - RESPIRATORY FAILURE, UNSPECIFIED WITH HYPOXIA; J96.92 - RESPIRATORY FAILURE, UNSPECIFIED WITH HYPERCAPNIA Qualifiers: Chronicity: acute on chronic Qualified Code(s): J96.21 - Acute and chronic respiratory failure with hypoxia; J96.22 - Acute and chronic respiratory failure with hypercapnia; J96.22 - Acute and chronic respiratory failure with hypercapnia; J96.22 - Acute and chronic respiratory failure with hypercapnia (8) Uncontrolled diabetes mellitus Code(s): E11.65 - TYPE 2 DIABETES MELLITUS WITH HYPERGLYCEMIA Qualifiers: Diabetes mellitus type: type 2 Diabetes mellitus complication status: without complication 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
[2017-12-24] MEDS: FUROSEMIDE 40 MG/4 ML INJECTABLE VIAL IVPUSH SCH (16:52)
[2017-12-24] MEDS: MUPIROCIN 2% TOPICAL OINTMENT FOR DECOLONIZATION NS SCH ×2 (16:53→21:19)
[2017-12-24] MEDS ORDERED: ERTAPENEM SODIUM 1 GM in SODIUM CHLORIDE 50 ML IVPB SCH (17:00)
[2017-12-24] MEDS ORDERED: ERTAPENEM SODIUM 1 GM in SODIUM CHLORIDE 100 ML IVPB SCH (17:04)
[2017-12-24] MEDS ORDERED: ALTEPLASE 100MG 100 MG IVPB ONE (18:58)
[2017-12-24] MEDS: ERTAPENEM SODIUM 1 GM in SODIUM CHLORIDE 100 ML IVPB SCH (19:15)
[2017-12-24] MEDS: GABAPENTIN 300 MG CAPSULE (FP) PO SCH (21:16)
[2017-12-24] MEDS: CHLORHEXIDINE GLUCONATE 4% CLEANSER FOR DECOLONIZATION TP SCH (21:16)
[2017-12-24] MEDS: INSULIN DETEMIR 100 UNITS/ML MDV SQ SCH (21:21)
[2017-12-25 06:13] LABS: HEMOGLOBIN 11.6 GM/dL (10.7-15.3); MCH 27.4 pg (25.7-33.7); MCHC 31.3 g/dl (32.0-36.0); MEAN CELL VOLUME 87.5 fl (80-96); MEAN PLT VOLUME 8.6 fl (7.5-11.1); MONO % 4.3 % (3.8-10.2); NEUT % 90.7 % (42.8-82.8); PLATELET COUNT 298 K/MM3 (134-434); RBC 4.23 M/mm3 (3.60-5.2); RDW 16.4 % (11.6-15.6); WHITE BLOOD COUNT 13.2 K/mm3 (4.0-10.0)
[2017-12-25] MEDS: FUROSEMIDE 40 MG/4 ML INJECTABLE VIAL IVPUSH SCH (06:13)
[2017-12-25] MEDS: HEPARIN NA (PORCINE) 5,000 UNITS/ML 1ML VIAL SQ SCH ×3 (06:13→21:06)
[2017-12-25] MEDS: methylPREDNISolone NA SUCC 40 MG/1 ML VIAL IVPUSH SCH ×2 (06:13→17:45)
[2017-12-25] MEDS: INSULIN SLIDING SCALE (NOVOLOG) 1 VIAL SQ SCH ×4 (06:26→21:12)
[2017-12-25] MEDS: INSULIN DETEMIR 100 UNITS/ML MDV SQ SCH ×2 (06:26→21:06)
[2017-12-25 06:39] LABS: ALBUMIN 2.9 g/dl (3.4-5.0); ANION GAP 7 (8-16); BLOOD UREA NITROGEN 23 mg/dL (7-18); CALCIUM 7.8 mg/dL (8.5-10.1); CHLORIDE 96 mmol/L (98-107); CO2 35 mmol/L (21-32); GLUCOSE,RANDOM 197 mg/dL (74-106); MAGNESIUM 2.4 mg/dL (1.8-2.4); POTASSIUM 4.8 mmol/L (3.5-5.1); SODIUM 138 mmol/L (136-145)
[2017-12-25 06:51] LABS: ALK PHOS 68 U/L (45-117); BILIRUBIN,TOTAL 0.8 mg/dL (0.2-1.0); CREATININE 0.9 mg/dL (0.55-1.02); PHOSPHOROUS 4.6 mg/dL (2.5-4.9); SGOT/AST 19 U/L (15-37); SGPT/ALT 27 U/L (12-78); TOT PROT 7.1 g/dl (6.4-8.2)
[2017-12-25 07:24] LABS: ARTERIAL BLD GAS O2 SATURATION 93.9 % (90-98.9); ARTERIAL BLOOD GAS BASE EXCESS 3.8 meq/l (-2-2); ARTERIAL BLOOD GAS PCO2 75.4 mmHg (35-45); ARTERIAL BLOOD GAS PO2 76.5 mmHg (80-100); ARTERIAL BLOOD GAS pH 7.26 (7.35-7.45)
[2017-12-25 07:30] LABS: ALLENS TEST POSITIVE
[2017-12-25] MEDS ORDERED: PT OWN MED DRAWER 7, Y5N ONE (09:59)
[2017-12-25] MEDS: LOSARTAN POTASSIUM 50 MG TABLET (FP) PO SCH (10:10)
[2017-12-25] MEDS: OSELTAMIVIR PHOSPHATE 75 MG CAPSULE PO SCH ×2 (10:11→21:06)
[2017-12-25] MEDS: MUPIROCIN 2% TOPICAL OINTMENT FOR DECOLONIZATION NS SCH ×2 (10:11→21:05)
[2017-12-25] MEDS: LYTES/YERBA SANTA 240 ML BOTTLE MM SCH (10:11)
[2017-12-25] MEDS: FLUTICASONE/SALMETEROL 100 MCG/50 MCG DISKUS IH SCH ×2 (10:17→21:05)
[2017-12-25] MEDS: ERTAPENEM SODIUM 1 GM in SODIUM CHLORIDE 100 ML IVPB SCH (11:58)
--- NOTE | 2017-12-25 12:03 | PN ---
Teaching Attending Note Name of Resident: Jesus Bhakta ATTENDING PHYSICIAN STATEMENT I saw and evaluated the patient. I reviewed the resident's note and discussed the case with the resident. I agree with the resident's findings and plan as documented. SUBJECTIVE: Patient seen and examined in the ICU. Awake and alert on VM O2. Was on NIPPV support overnight. No pressors. Denies CP. SOB is better today. Noted ABG: worsening hypercapnia Intake & Output 12/22/17 12/23/17 12/24/17 12/25/17 23:59 23:59 23:59 23:59 Intake Total 580 200 Output Total 3850 500 Balance -3270 -300 Weight 350 lb 344 lb 2 oz 338 lb 3.025 oz Last Vital Signs Temp Pulse Resp BP Pulse Ox 99.3 F 90 25 H 111/65 96 12/25/17 10:00 12/25/17 11:28 12/25/17 10:00 12/25/17 10:00 12/25/17 11:28 Active Medications Albuterol/Ipratropium (Duoneb -) 1 amp NEB Q4H PRN PRN Reason: SHORTNESS OF BREATH Chlorhexidine Gluconate (Hibiclens For Decolonization -) 1 applic TP HS [facility] Last Admin: 12/24/17 21:16 Dose: 1 applic Furosemide (Lasix Injection -) 40 mg IVPUSH BIDLASIX [facility] Last Admin: 12/25/17 06:13 Dose: 40 mg Gabapentin (Neurontin -) 300 mg PO HS [facility] Last Admin: 12/24/17 21:16 Dose: 300 mg Heparin Sodium (Porcine) (Heparin -) 5,000 unit SQ TID [facility] Last Admin: 12/25/17 06:13 Dose: 5,000 unit Ertapenem 1 gm/ Sodium (Chloride) 100 mls @ 50 mls/hr IVPB DAILY K[facility] PRN Reason: Protocol Last Admin: 12/25/17 11:58 Dose: 50 mls/hr Insulin Aspart (Novolog Vial Sliding Scale -) 1 vial SQ ACHS [facility] PRN Reason: Protocol Last Admin: 12/25/17 11:22 Dose: 6 units Insulin Detemir (Levemir Vial) 15 units SQ BID@0700,2200 [facility] Last Admin: 12/25/17 06:26 Dose: 15 units Losartan Potassium (Cozaar -) 100 mg PO DAILY [facility] Last Admin: 12/25/17 10:10 Dose: 100 mg Methylprednisolone Sodium Succinate (Solu-Medrol -) 40 mg IVPUSH Q12H [facility] Last Admin: 12/25/17 06:13 Dose: 40 mg Mupirocin (Bactroban Ointment (For Decolonization) -) 1 applic NS BID [facility] Stop: 12/29/17 09:59 Last Admin: 12/25/17 10:11 Dose: 1 applic Oseltamivir Phosphate (Tamiflu -) 75 mg PO BID [facility] Stop: 12/28/17 10:01 Last Admin: 12/25/17 10:11 Dose: 75 mg Saliva Substitute (Mouthkote Solution -) 1 applic MM DAILY [facility] Last Admin: 12/25/17 10:11 Dose: 1 applic Fluticasone/Salmeterol (Advair 100mcg/50mcg -) 1 puff IH BID [facility] Last Admin: 12/25/17 10:17 Dose: 1 inh GENERAL: Awake and alert on VM O2 HEAD: NCAT EYES: PERRL, EOMI, non injected sclera, no exudate EARS, NOSE, THROAT: NECK: Normal range of motion, supple without lymphadenopathy LUNGS: scattered crackles, diminished bases HEART: Regular rate and rhythm, normal S1 and S2 without murmur, rub or gallop. ABDOMEN: Soft, obese nontender, not distended, normoactive bowel sounds, no guarding LOWER EXTREMITIES: 2+ dorsalis pedis pulses, warm, well-perfused. No calf tenderness. 1+ dependent edema NEUROLOGICAL: Non-focal PSYCHIATRIC: Cooperative Laboratory Results - last 24 hr 12/24/17 12/24/17 12/24/17 11:51 15:20 16:52 WBC RBC Hgb Hct MCV MCH MCHC RDW Plt Count MPV Neutrophils % Lymphocytes % Monocytes % Eosinophils % Basophils % Puncture Site Right radial ABG pH 7.27 L ABG pCO2 at Pt Temp 66.4 H* ABG pO2 at Pt Temp 103.0 H D ABG HCO3 29.4 H ABG O2 Sat (Measured) 97.5 ABG O2 Content 15.6 ABG Base Excess 1.6 Dmitriy Test Positive O2 Delivery Device Oxygen Flow Rate Yes Vent Mode S/t Vent Rate Mechanical Rate Bipap PEEP 0.0 Pressure Support Vent 18/6 Sodium Potassium Chloride Carbon Dioxide Anion Gap BUN Creatinine Creat Clearance w eGFR POC Glucometer > [phone] Random Glucose Hemoglobin A1c % Calcium Phosphorus Magnesium Total Bilirubin AST ALT Alkaline Phosphatase Creatine Kinase Creatine Kinase Index CK-MB (CK-2) Troponin I Total Protein Albumin TSH 12/24/17 12/25/17 12/25/17 21:19 01:41 05:05 WBC 13.2 H RBC 4.23 Hgb 11.6 Hct 37.0 MCV 87.5 MCH 27.4 MCHC 31.3 L RDW 16.4 H Plt Count 298 MPV 8.6 Neutrophils % 90.7 H Lymphocytes % 5.0 L D Monocytes % 4.3 D Eosinophils % 0.0 Basophils % 0.0 Puncture Site ABG pH ABG pCO2 at Pt Temp ABG pO2 at Pt Temp ABG HCO3 ABG O2 Sat (Measured) ABG O2 Content ABG Base Excess Dmitriy Test O2 Delivery Device Oxygen Flow Rate Vent Mode Vent Rate Mechanical Rate PEEP Pressure Support Vent Sodium Potassium Chloride Carbon Dioxide Anion Gap BUN Creatinine Creat Clearance w eGFR POC Glucometer [phone] Random Glucose Hemoglobin A1c % Calcium Phosphorus Magnesium Total Bilirubin AST ALT Alkaline Phosphatase Creatine Kinase Creatine Kinase Index CK-MB (CK-2) Troponin I Total Protein Albumin TSH 12/25/17 12/25/17 12/25/17 05:05 05:05 05:05 WBC RBC Hgb Hct MCV MCH MCHC RDW Plt Count MPV Neutrophils % Lymphocytes % Monocytes % Eosinophils % Basophils % Puncture Site ABG pH ABG pCO2 at Pt Temp ABG pO2 at Pt Temp ABG HCO3 ABG O2 Sat (Measured) ABG O2 Content ABG Base Excess Dmitriy Test O2 Delivery Device Oxygen Flow Rate Vent Mode Vent Rate Mechanical Rate PEEP Pressure Support Vent Sodium 138 Potassium 4.8 Chloride 96 L Carbon Dioxide 35 H Anion Gap 7 L BUN 23 H Creatinine 0.9 Creat Clearance w eGFR > 60 POC Glucometer Random Glucose 197 H Hemoglobin A1c % 9.9 H Calcium 7.8 L Phosphorus 4.6 Magnesium 2.4 Total Bilirubin 0.8 D AST 19 ALT 27 Alkaline Phosphatase 68 Creatine Kinase 276 H Creatine Kinase Index 1.4 CK-MB (CK-2) 4.112 H Troponin I 0.21 H Total Protein 7.1 Albumin 2.9 L TSH 0.25 L 12/25/17 12/25/17 06:11 06:17 WBC RBC Hgb Hct MCV MCH MCHC RDW Plt Count MPV Neutrophils % Lymphocytes % Monocytes % Eosinophils % Basophils % Puncture Site Right radial ABG pH 7.26 L ABG pCO2 at Pt Temp 75.4 H* ABG pO2 at Pt Temp 76.5 L D ABG HCO3 33.0 H ABG O2 Sat (Measured) 93.9 ABG O2 Content 17.8 ABG Base Excess 3.8 H Dmitriy Test Positive O2 Delivery Device Bipap Oxygen Flow Rate 45 Vent Mode Bipap 25/45 Vent Rate 25 Mechanical Rate Yes PEEP 0.0 Pressure Support Vent Ipap 18 epap 6 Sodium Potassium Chloride Carbon Dioxide Anion Gap BUN Creatinine Creat Clearance w eGFR POC Glucometer [phone] Random Glucose Hemoglobin A1c % Calcium Phosphorus Magnesium Total Bilirubin AST ALT Alkaline Phosphatase Creatine Kinase Creatine Kinase Index CK-MB (CK-2) Troponin I Total Protein Albumin TSH IMP: Acute on chronic hypoxic / hypercapneic failure CHF AE of COPD Influenza A PLAN: -NIPPV as needed / VM O2 as tolerated -Tamiflu -ABX per ID -Change Lasix to daily -BD TX -Medrol -Glycemic control -Cardiac enzymes -VTE prophylaxis Dr Hollins Critical care time spent in reviewing chart, evaluating patient and formulating plan - 36 minutes.
--- NOTE | 2017-12-25 13:48 | PN ---
Physical Exam: SUBJECTIVE: Patient seen and examined Patient off bipap this morning. On ventimask. Feels much improved. OBJECTIVE: Vital Signs Period Temp Pulse Resp BP Sys/Rueda Pulse Ox Last 24 Hr 98.2 F-99.3 F 73-99 17-25 106-117/54-96 93-100 GENERAL: Awake alert on bipap, appears comfortable HEAD: NCAT EYES: PERRL, EOMI, non injected sclera, no exudate NECK: Normal range of motion, supple without lymphadenopathy LUNGS: Breath sound equal, Minor crackles throughout, Decreased sounds at the bases, no accessory muscle use HEART: Regular rate and rhythm, normal S1 and S2 without murmur, rub or gallop. ABDOMEN: Soft, obese nontender, not distended, normoactive bowel sounds, no guarding LOWER EXTREMITIES: 2+ dorsalis pedis pulses, warm, well-perfused. No calf tenderness. PSYCHIATRIC: Cooperative. pleasant Laboratory Results - last 24 hr 12/24/17 12/24/17 12/24/17 15:20 16:52 21:19 WBC RBC Hgb Hct MCV MCH MCHC RDW Plt Count MPV Neutrophils % Lymphocytes % Monocytes % Eosinophils % Basophils % Puncture Site Right radial ABG pH 7.27 L ABG pCO2 at Pt Temp 66.4 H* ABG pO2 at Pt Temp 103.0 H D ABG HCO3 29.4 H ABG O2 Sat (Measured) 97.5 ABG O2 Content 15.6 ABG Base Excess 1.6 Dmitriy Test Positive O2 Delivery Device Oxygen Flow Rate Yes Vent Mode S/t Vent Rate Mechanical Rate Bipap PEEP 0.0 Pressure Support Vent 18/6 Sodium Potassium Chloride Carbon Dioxide Anion Gap BUN Creatinine Creat Clearance w eGFR POC Glucometer [phone] Random Glucose Hemoglobin A1c % Calcium Phosphorus Magnesium Total Bilirubin AST ALT Alkaline Phosphatase Creatine Kinase Creatine Kinase Index CK-MB (CK-2) Troponin I Total Protein Albumin TSH 12/25/17 12/25/17 12/25/17 01:41 05:05 05:05 WBC 13.2 H RBC 4.23 Hgb 11.6 Hct 37.0 MCV 87.5 MCH 27.4 MCHC 31.3 L RDW 16.4 H Plt Count 298 MPV 8.6 Neutrophils % 90.7 H Lymphocytes % 5.0 L D Monocytes % 4.3 D Eosinophils % 0.0 Basophils % 0.0 Puncture Site ABG pH ABG pCO2 at Pt Temp ABG pO2 at Pt Temp ABG HCO3 ABG O2 Sat (Measured) ABG O2 Content ABG Base Excess Dmitriy Test O2 Delivery Device Oxygen Flow Rate Vent Mode Vent Rate Mechanical Rate PEEP Pressure Support Vent Sodium 138 Potassium 4.8 Chloride 96 L Carbon Dioxide 35 H Anion Gap 7 L BUN 23 H Creatinine 0.9 Creat Clearance w eGFR > 60 POC Glucometer [phone] Random Glucose 197 H Hemoglobin A1c % Calcium 7.8 L Phosphorus 4.6 Magnesium 2.4 Total Bilirubin 0.8 D AST 19 ALT 27 Alkaline Phosphatase 68 Creatine Kinase Creatine Kinase Index CK-MB (CK-2) Troponin I Total Protein 7.1 Albumin 2.9 L TSH 0.25 L 12/25/17 12/25/17 12/25/17 05:05 05:05 06:11 WBC RBC Hgb Hct MCV MCH MCHC RDW Plt Count MPV Neutrophils % Lymphocytes % Monocytes % Eosinophils % Basophils % Puncture Site Right radial ABG pH 7.26 L ABG pCO2 at Pt Temp 75.4 H* ABG pO2 at Pt Temp 76.5 L D ABG HCO3 33.0 H ABG O2 Sat (Measured) 93.9 ABG O2 Content 17.8 ABG Base Excess 3.8 H Dmitriy Test Positive O2 Delivery Device Bipap Oxygen Flow Rate 45 Vent Mode Bipap 25/45 Vent Rate 25 Mechanical Rate Yes PEEP 0.0 Pressure Support Vent Ipap 18 epap 6 Sodium Potassium Chloride Carbon Dioxide Anion Gap BUN Creatinine Creat Clearance w eGFR POC Glucometer Random Glucose Hemoglobin A1c % 9.9 H Calcium Phosphorus Magnesium Total Bilirubin AST ALT Alkaline Phosphatase Creatine Kinase 276 H Creatine Kinase Index 1.4 CK-MB (CK-2) 4.112 H Troponin I 0.21 H Total Protein Albumin TSH 12/25/17 12/25/17 06:17 11:20 WBC RBC Hgb Hct MCV MCH MCHC RDW Plt Count MPV Neutrophils % Lymphocytes % Monocytes % Eosinophils % Basophils % Puncture Site ABG pH ABG pCO2 at Pt Temp ABG pO2 at Pt Temp ABG HCO3 ABG O2 Sat (Measured) ABG O2 Content ABG Base Excess Dmitriy Test O2 Delivery Device Oxygen Flow Rate Vent Mode Vent Rate Mechanical Rate PEEP Pressure Support Vent Sodium Potassium Chloride Carbon Dioxide Anion Gap BUN Creatinine Creat Clearance w eGFR POC Glucometer 230.21216 [phone] Random Glucose Hemoglobin A1c % Calcium Phosphorus Magnesium Total Bilirubin AST ALT Alkaline Phosphatase Creatine Kinase Creatine Kinase Index CK-MB (CK-2) Troponin I Total Protein Albumin TSH Active Medications Generic Name Dose Route Start Last Admin Trade Name Freq PRN Reason Stop Dose Admin Albuterol/Ipratropium 1 amp 12/24/17 04:31 Duoneb - NEB Q4H PRN SHORTNESS OF BREATH Chlorhexidine Gluconate 1 applic 12/24/17 22:00 12/24/17 21:16 Hibiclens For Decolonization - TP 1 applic HS [facility] Administration Furosemide 40 mg 12/26/17 10:00 Lasix Injection - IVPUSH DAILY [facility] Gabapentin 300 mg 12/24/17 22:00 12/24/17 21:16 Neurontin - PO 300 mg HS [facility] Administration Heparin Sodium (Porcine) 5,000 unit 12/24/17 06:00 12/25/17 06:13 Heparin - SQ 5,000 unit TID [facility] Administration Ertapenem 1 gm/ Sodium 100 mls @ 50 mls/hr 12/24/17 17:45 12/25/17 11:58 Chloride IVPB 50 mls/hr DAILY [facility] Administration Protocol Insulin Aspart 1 vial 12/24/17 07:00 12/25/17 11:22 Novolog Vial Sliding Scale - SQ 6 units ACHS [facility] Administration Protocol Insulin Detemir 20 units 12/25/17 12:32 Levemir Vial SQ BID@0700,2200 [facility] Losartan Potassium 100 mg 12/24/17 10:00 12/25/17 10:10 Cozaar - PO 100 mg DAILY [facility] Administration Methylprednisolone Sodium Succinate 40 mg 12/24/17 05:45 12/25/17 06:13 Solu-Medrol - IVPUSH 40 mg Q12H [facility] Administration Mupirocin 1 applic 12/24/17 10:00 12/25/17 10:11 Bactroban Ointment (For Decolonization) - NS 12/29/17 09:59 1 applic BID [facility] Administration Oseltamivir Phosphate 75 mg 12/24/17 10:00 12/25/17 10:11 Tamiflu - PO 12/28/17 10:01 75 mg BID [facility] Administration Saliva Substitute 1 applic 12/24/17 11:00 12/25/17 10:11 Mouthkote Solution - MM 1 applic DAILY [facility] Administration Fluticasone/Salmeterol 1 puff 12/24/17 10:00 12/25/17 10:17 Advair 100mcg/50mcg - IH 1 inh BID [facility] Administration ASSESSMENT/PLAN: 67 year old F with pmh of morbid obesity, HTn, DM, COPD presented with 2 day hx of wheezing, fever, dyspnea admitted to ICU for acute hypoxic hypercapnic respiratory failure #Pulm Acute hypoxic hypercapnic respiratory failure Hx of COPD -Continue Advair -Duonebs prn -Solumederol 40 q12 -Continue Ventimask, May need bipap if patient worsens. Close monitoring of respiratory status required #CV CHF -lasix 40 mg iv daily -Continue Losartan 100 mg po daily #ID Influenza A -Continue Tamiflu -Droplet precautions #FEN/GI -No IVF -wnl -Diabetic/Sodium Diet #PPx -Heparin 5000 u sq tid Dispo: Continue ICU level of care Visit type - Emergency Visit Emergency Visit: Yes ED Registration Date: 12/24/17 Care time: The patient presented to the Emergency Department on the above date and was hospitalized for further evaluation of their emergent condition. - New Patient This patient is new to me today: No - Critical Care Critical Care patient: Yes Total Critical Care Time (in minutes): 45 Critical Care Statement: The care of this patient involved high complexity decision making to prevent further life threatening deterioration of the patient 's condition and/or to evaluate & treat vital organ system(s) failure or risk of failure.
--- NOTE | 2017-12-25 14:58 | PN ---
Progress Note, Physician Chief Complaint: Off BIPAP on Venti Mask doing well History of Present Illness: 67 yrs old F H/O advanced COPD on Home O2 Non Complaint, CAD, HTN, T2DM, present with 1 day H/o worsening SOB< fever and Cough on arrival in mixed Hypoxic and Hypercarbic respiratory failure elevated TWBC , Influenza A a + B/L Pulmonary infiltrate , EKG QTC prolongation recived IV Dexmethasone, nebs, IV Levofloxacin and Tamiflu with BIPAP, Hypoxia improved admitted in ICU for further management. - Current Medication List Current Medications: Active Medications Albuterol/Ipratropium (Duoneb -) 1 amp NEB Q4H PRN PRN Reason: SHORTNESS OF BREATH Chlorhexidine Gluconate (Hibiclens For Decolonization -) 1 applic TP HS [facility] Last Admin: 12/24/17 21:16 Dose: 1 applic Furosemide (Lasix Injection -) 40 mg IVPUSH DAILY [facility] Gabapentin (Neurontin -) 300 mg PO [facility] Last Admin: 12/24/17 21:16 Dose: 300 mg Heparin Sodium (Porcine) (Heparin -) 5,000 unit SQ TID [facility] Last Admin: 12/25/17 14:19 Dose: 5,000 unit Ertapenem 1 gm/ Sodium (Chloride) 100 mls @ 50 mls/hr IVPB DAILY [facility] PRN Reason: Protocol Last Admin: 12/25/17 11:58 Dose: 50 mls/hr Insulin Aspart (Novolog Vial Sliding Scale -) 1 vial SQ ACHS [facility] PRN Reason: Protocol Last Admin: 12/25/17 11:22 Dose: 6 units Insulin Detemir (Levemir Vial) 20 units SQ BID@0700,2200 [facility] Losartan Potassium (Cozaar -) 100 mg PO DAILY [facility] Last Admin: 12/25/17 10:10 Dose: 100 mg Methylprednisolone Sodium Succinate (Solu-Medrol -) 40 mg IVPUSH Q12H [facility] Last Admin: 12/25/17 06:13 Dose: 40 mg Mupirocin (Bactroban Ointment (For Decolonization) -) 1 applic NS BID [facility] Stop: 12/29/17 09:59 Last Admin: 12/25/17 10:11 Dose: 1 applic Oseltamivir Phosphate (Tamiflu -) 75 mg PO BID [facility] Stop: 12/28/17 10:01 Last Admin: 12/25/17 10:11 Dose: 75 mg Saliva Substitute (Mouthkote Solution -) 1 applic MM DAILY [facility] Last Admin: 12/25/17 10:11 Dose: 1 applic Fluticasone/Salmeterol (Advair 100mcg/50mcg -) 1 puff IH BID [facility] Last Admin: 12/25/17 10:17 Dose: 1 inh - Objective Vital Signs: Vital Signs Temperature 98.0 F 12/25/17 14:00 Pulse Rate 101 H 12/25/17 14:00 Respiratory Rate 20 12/25/17 14:00 Blood Pressure 105/79 12/25/17 14:00 O2 Sat by Pulse Oximetry (%) 92 L 12/25/17 14:26 Labs: CBC, BMP 12/25/17 05:05 12/25/17 05:05 INR, PTT INR 1.19 (0.82-1.09) H 12/23/17 23:00 Problem List - Problems (1) Respiratory failure with hypoxia and hypercapnia Assessment/Plan: Know case of COPD non compliant with Home O2 present with Respiratory acidosis with Hypoxia nd Hypcarbia with fever , Influenza A +, ? B/L LL Infitrates Strept P AG -ve, Cultures are pending considering PCN allergy and QTC prolongation will start Aztrenam + Doxycycline Azithro is contraindicated with prolonged QTC F/I ID Input Code(s): J96.91 - RESPIRATORY FAILURE, UNSPECIFIED WITH HYPOXIA; J96.92 - RESPIRATORY FAILURE, UNSPECIFIED WITH HYPERCAPNIA Qualifiers: Chronicity: acute on chronic Qualified Code(s): J96.21 - Acute and chronic respiratory failure with hypoxia; J96.22 - Acute and chronic respiratory failure with hypercapnia; J96.22 - Acute and chronic respiratory failure with hypercapnia; J96.22 - Acute and chronic respiratory failure with hypercapnia (2) Chronic obstructive pulmonary disease with (acute) exacerbation Assessment/Plan: Present with COPD exacerbation, Cont Nebs IV abx and Respiratory management BIPAP as per Pulmonary Critical care consult Code(s): J44.1 - CHRONIC OBSTRUCTIVE PULMONARY DISEASE W (ACUTE) EXACERBATION (3) Influenza A Assessment/Plan: On tamiflu Code(s): J10.1 - FLU DUE TO OTH IDENT INFLUENZA VIRUS W OTH RESP MANIFEST (4) Pneumonia Assessment/Plan: Post Viral CABP recived Levofloxacin will sstart aztrenam and Doxycycline pending cultures Code(s): J18.9 - PNEUMONIA, UNSPECIFIED ORGANISM (5) CHF exacerbation Assessment/Plan: Elevated PrO BNP, Pulmonary congestion, no known EF will F/I ECHO and cardiology consult, recived Lasicx in the ED Code(s): I50.9 - HEART FAILURE, UNSPECIFIED (6) Uncontrolled diabetes mellitus Assessment/Plan: Hold PO Medsa add Levimir 15units with corretion dose insulin F/u accucheck HbA1C Code(s): E11.65 - TYPE 2 DIABETES MELLITUS WITH HYPERGLYCEMIA Qualifiers: Diabetes mellitus type: type 2 Diabetes mellitus complication status: without complication Diabetes mellitus assisted insulin use: without intermediate designer use Qualified Code(s): E11.65 - Type 2 diabetes mellitus with hyperglycemia (7) HTN (hypertension) Assessment/Plan: Cont Home medication Code(s): I10 - ESSENTIAL (PRIMARY) HYPERTENSION Qualifiers: Hypertension type: essential hypertension Qualified Code(s): I10 - Essential (primary) hypertension (8) Morbid obesity with BMI of 50.0-59.9, adult Assessment/Plan: Nutritional consult as out patient Code(s): E66.01 - MORBID (SEVERE) OBESITY DUE TO EXCESS CALORIES; Z68.43 - BODY MASS INDEX (BMI) 50-59.9 , ADULT (9) CAD (coronary artery disease) of artery bypass graft Assessment/Plan: No C/O chest pain mildly elevated troponin I . , No acute St T cages add ASa F/ U Lipid serial CE and EKG cardiology consult. Code(s): I25.810 - ATHEROSCLEROSIS OF CABG W/O ANGINA PECTORIS Qualifiers: [place] vs. transplanted heart: [place] heart Associated angina: without angina Qualified Code(s): I25.810 - Atherosclerosis of coronary artery bypass graft(s) without angina pectoris (10) Elevated troponin I level Assessment/Plan: Elevated trop I no acute St T changes no chest pain most likely Demand ischemia will F/U Cardiology input add ASA, Lipid panel, TSH Code(s): R74.8 - ABNORMAL LEVELS OF OTHER SERUM ENZYMES
--- NOTE | 2017-12-25 15:59 | PN ---
Progress Note, Physician History of Present Illness: patient feels much better no complaints says she is breathing better on mask now - Current Medication List Current Medications: Active Medications Albuterol/Ipratropium (Duoneb -) 1 amp NEB Q4H PRN PRN Reason: SHORTNESS OF BREATH Chlorhexidine Gluconate (Hibiclens For Decolonization -) 1 applic TP HS [facility] Last Admin: 12/24/17 21:16 Dose: 1 applic Furosemide (Lasix Injection -) 40 mg IVPUSH DAILY [facility] Gabapentin (Neurontin -) 300 mg PO HS [facility] Last Admin: 12/24/17 21:16 Dose: 300 mg Heparin Sodium (Porcine) (Heparin -) 5,000 unit SQ TID [facility] Last Admin: 12/25/17 14:19 Dose: 5,000 unit Ertapenem 1 gm/ Sodium (Chloride) 100 mls @ 50 mls/hr IVPB DAILY [facility] PRN Reason: Protocol Last Admin: 12/25/17 11:58 Dose: 50 mls/hr Insulin Aspart (Novolog Vial Sliding Scale -) 1 vial SQ ACHS [facility] PRN Reason: Protocol Last Admin: 12/25/17 11:22 Dose: 6 units Insulin Detemir (Levemir Vial) 20 units SQ BID@0700,2200 [facility] Losartan Potassium (Cozaar -) 100 mg PO DAILY [facility] Last Admin: 12/25/17 10:10 Dose: 100 mg Methylprednisolone Sodium Succinate (Solu-Medrol -) 40 mg IVPUSH Q12H [facility] Last Admin: 12/25/17 06:13 Dose: 40 mg Mupirocin (Bactroban Ointment (For Decolonization) -) 1 applic NS BID [facility] Stop: 12/29/17 09:59 Last Admin: 12/25/17 10:11 Dose: 1 applic Oseltamivir Phosphate (Tamiflu -) 75 mg PO BID [facility] Stop: 12/28/17 10:01 Last Admin: 12/25/17 10:11 Dose: 75 mg Saliva Substitute (Mouthkote Solution -) 1 applic MM DAILY [facility] Last Admin: 12/25/17 10:11 Dose: 1 applic Fluticasone/Salmeterol (Advair 100mcg/50mcg -) 1 puff IH BID [facility] Last Admin: 12/25/17 10:17 Dose: 1 inh - Objective Vital Signs: Vital Signs Temperature 98.0 F 12/25/17 14:00 Pulse Rate 101 H 12/25/17 14:00 Respiratory Rate 20 12/25/17 14:00 Blood Pressure 105/79 12/25/17 14:00 O2 Sat by Pulse Oximetry (%) 92 L 12/25/17 14:26 Constitutional: Yes: No Distress, Calm, Obese Cardiovascular: Yes: Regular Rate and Rhythm Respiratory: Yes: Poor Air Entry, Rhonchi Gastrointestinal: Yes: Normal Bowel Sounds, Soft Musculoskeletal: Yes: WNL Extremities: Yes: WNL Neurological: Yes: Alert, Oriented Psychiatric: Yes: Alert, Oriented Labs: CBC, BMP 12/25/17 05:05 12/25/17 05:05 INR, PTT INR 1.19 (0.82-1.09) H 12/23/17 23:00 Assessment/Plan Problem List - Problems (1) Demand ischemia Code(s): I24.8 - OTHER FORMS OF ACUTE ISCHEMIC HEART DISEASE (2) CAD (coronary artery disease) of artery bypass graft Code(s): I25.810 - ATHEROSCLEROSIS OF CABG W/O ANGINA PECTORIS Qualifiers: [place] vs. transplanted heart: [place] heart Associated angina: without angina Qualified Code(s): I25.810 - Atherosclerosis of coronary artery bypass graft(s) without angina pectoris (3) Elevated troponin I level Code(s): R74.8 - ABNORMAL LEVELS OF OTHER SERUM ENZYMES (4) HTN (hypertension) Code(s): I10 - ESSENTIAL (PRIMARY) HYPERTENSION Qualifiers: Hypertension type: essential hypertension Qualified Code(s): I10 - Essential (primary) hypertension (5) Influenza A Code(s): J10.1 - FLU DUE TO OTH IDENT INFLUENZA VIRUS W OTH RESP MANIFEST (6) Morbid obesity with BMI of 50.0-59.9, adult Code(s): E66.01 - MORBID (SEVERE) OBESITY DUE TO EXCESS CALORIES; Z68.43 - BODY MASS INDEX (BMI) 50-59.9 , ADULT (7) Respiratory failure with hypoxia and hypercapnia Code(s): J96.91 - RESPIRATORY FAILURE, UNSPECIFIED WITH HYPOXIA; J96.92 - RESPIRATORY FAILURE, UNSPECIFIED WITH HYPERCAPNIA Qualifiers: Chronicity: acute on chronic Qualified Code(s): J96.21 - Acute and chronic respiratory failure with hypoxia; J96.22 - Acute and chronic respiratory failure with hypercapnia; J96.22 - Acute and chronic respiratory failure with hypercapnia; J96.22 - Acute and chronic respiratory failure with hypercapnia (8) Uncontrolled diabetes mellitus Code(s): E11.65 - TYPE 2 DIABETES MELLITUS WITH HYPERGLYCEMIA Qualifiers: Diabetes mellitus type: type 2 Diabetes mellitus complication status: without complication Diabetes mellitus assisted insulin use: without technician terminal and repeater use Qualified Code(s): E11.65 - Type 2 diabetes mellitus with hyperglycemia (9) COPD exacerbation Code(s): J44.1 - CHRONIC OBSTRUCTIVE PULMONARY DISEASE W (ACUTE) EXACERBATION (10) Shortness of breath Code(s): R06.02 - SHORTNESS OF BREATH 11 pneumonia plan continue abx continue monitoring patient improving rest as per icu cc time 40 min
--- NOTE | 2017-12-25 19:14 | PN ---
Progress Note, Physician History of Present Illness: Productive cough, dyspnea slowly improving, but hypercapnea has worsened. - Current Medication List Current Medications: Active Medications Albuterol/Ipratropium (Duoneb -) 1 amp NEB Q4H PRN PRN Reason: SHORTNESS OF BREATH Chlorhexidine Gluconate (Hibiclens For Decolonization -) 1 applic TP HS [facility] Last Admin: 12/24/17 21:16 Dose: 1 applic Furosemide (Lasix Injection -) 40 mg IVPUSH DAILY [facility] Gabapentin (Neurontin -) 300 mg PO HS [facility] Last Admin: 12/24/17 21:16 Dose: 300 mg Heparin Sodium (Porcine) (Heparin -) 5,000 unit SQ TID [facility] Last Admin: 12/25/17 14:19 Dose: 5,000 unit Ertapenem 1 gm/ Sodium (Chloride) 100 mls @ 50 mls/hr IVPB DAILY [facility] PRN Reason: Protocol Last Admin: 12/25/17 11:58 Dose: 50 mls/hr Insulin Aspart (Novolog Vial Sliding Scale -) 1 vial SQ ACHS [facility] PRN Reason: Protocol Last Admin: 12/25/17 17:44 Dose: 4 units Insulin Detemir (Levemir Vial) 20 units SQ BID@0700,2200 [facility] Losartan Potassium (Cozaar -) 100 mg PO DAILY [facility] Last Admin: 12/25/17 10:10 Dose: 100 mg Methylprednisolone Sodium Succinate (Solu-Medrol -) 40 mg IVPUSH Q12H [facility] Last Admin: 12/25/17 17:45 Dose: 40 mg Mupirocin (Bactroban Ointment (For Decolonization) -) 1 applic NS BID [facility] Stop: 12/29/17 09:59 Last Admin: 12/25/17 10:11 Dose: 1 applic Oseltamivir Phosphate (Tamiflu -) 75 mg PO BID [facility] Stop: 12/28/17 10:01 Last Admin: 12/25/17 10:11 Dose: 75 mg Saliva Substitute (Mouthkote Solution -) 1 applic MM DAILY [facility] Last Admin: 12/25/17 10:11 Dose: 1 applic Fluticasone/Salmeterol (Advair 100mcg/50mcg -) 1 puff IH BID [facility] Last Admin: 12/25/17 10:17 Dose: 1 inh - Objective Vital Signs: Vital Signs Temperature 98.6 F 12/25/17 18:00 Pulse Rate 96 H 12/25/17 18:00 Respiratory Rate 22 12/25/17 18:00 Blood Pressure 118/61 12/25/17 18:00 O2 Sat by Pulse Oximetry (%) 95 12/25/17 17:51 Constitutional: Yes: No Distress, Calm Neck: Yes: Supple Cardiovascular: Yes: Regular Rate and Rhythm Respiratory: Yes: Regular, Diminished, On Venti-Mask Gastrointestinal: Yes: Normal Bowel Sounds, Soft, Abdomen, Obese Edema: Yes Edema: LLE: Trace, RLE: Trace Labs: CBC, BMP 12/25/17 05:05 12/25/17 05:05 INR, PTT INR 1.19 (0.82-1.09) H 12/23/17 23:00 - ....Imaging Chest X-ray: Report Reviewed (NAD) EKG: Report Reviewed (Tele: SR) Problem List - Problems (1) CAD (coronary artery disease) of artery bypass graft Code(s): I25.810 - ATHEROSCLEROSIS OF CABG W/O ANGINA PECTORIS Qualifiers: [place] vs. transplanted heart: [place] heart Associated angina: without angina Qualified Code(s): I25.810 - Atherosclerosis of coronary artery bypass graft(s) without angina pectoris (2) Chronic obstructive pulmonary disease with (acute) exacerbation Code(s): J44.1 - CHRONIC OBSTRUCTIVE PULMONARY DISEASE W (ACUTE) EXACERBATION (3) Demand ischemia Code(s): I24.8 - OTHER FORMS OF ACUTE ISCHEMIC HEART DISEASE (4) HTN (hypertension) Code(s): I10 - ESSENTIAL (PRIMARY) HYPERTENSION Qualifiers: Hypertension type: essential hypertension Qualified Code(s): I10 - Essential (primary) hypertension (5) Influenza A Code(s): J10.1 - FLU DUE TO OTH IDENT INFLUENZA VIRUS W OTH RESP MANIFEST (6) Morbid obesity with BMI of 50.0-59.9, adult Code(s): E66.01 - MORBID (SEVERE) OBESITY DUE TO EXCESS CALORIES; Z68.43 - BODY MASS INDEX (BMI) 50-59.9 , ADULT (7) Pneumonia Code(s): J18.9 - PNEUMONIA, UNSPECIFIED ORGANISM Qualifiers: Pneumonia type: due to unspecified organism (8) Respiratory failure with hypoxia and hypercapnia Code(s): J96.91 - RESPIRATORY FAILURE, UNSPECIFIED WITH HYPOXIA; J96.92 - RESPIRATORY FAILURE, UNSPECIFIED WITH HYPERCAPNIA Qualifiers: Chronicity: acute on chronic Qualified Code(s): J96.21 - Acute and chronic respiratory failure with hypoxia; J96.22 - Acute and chronic respiratory failure with hypercapnia; J96.22 - Acute and chronic respiratory failure with hypercapnia; J96.22 - Acute and chronic respiratory failure with hypercapnia (9) Systolic dysfunction, left ventricle Code(s): I51.9 - HEART DISEASE, UNSPECIFIED Assessment/Plan 12/24/2017 Transthoracic echocardiography: Normal LV size with moderate decreaased LV fxn, tr TR 1. Acute on chronic hypoxic/hypercapneic respiratory failure with (+) Influenza A 2. Coronary artery disease post CABG, angina pectoris - elevated troponin due to demand ischemia 3. LV systolic dysfunction (moderate) - acute on chronic class II NYHA classification heart failure 4. Hypertension 5. Borderline diabetes mellitus 6. AE COPD 7. OSAS suspect PLAN: 1. Continue BIPAP as needed. Continue Tamiflu, abx course, IV steroid taper with GI protection and bronchodilators as needed 2. Further cardiac work up including nuclear myocardial perfusion can be done as outpatient. 3. Continue Losartan 100 qd. Consider Carvedilol 3.125 mg BID when respiratory status improves, remains on Lasix 40 IV qd 4. Add ASA 81 mg once a day 5. Check fasting lipid panel and start statin if appropriate 6. Troponins have peaked 7. DVT prophylaxis 8. PSG as outpatient to confirm OSAS
[2017-12-25] MEDS: GABAPENTIN 300 MG CAPSULE (FP) PO SCH (21:06)
[2017-12-25] MEDS: CHLORHEXIDINE GLUCONATE 4% CLEANSER FOR DECOLONIZATION TP SCH (21:06)
[2017-12-25] MEDS: PANTOPRAZOLE 20 MG TABLET (FP) PO SCH (22:20)
[2017-12-26] MEDS: methylPREDNISolone NA SUCC 40 MG/1 ML VIAL IVPUSH SCH ×2 (05:50→17:03)
[2017-12-26] MEDS: HEPARIN NA (PORCINE) 5,000 UNITS/ML 1ML VIAL SQ SCH ×3 (05:50→22:02)
[2017-12-26] MEDS: INSULIN SLIDING SCALE (NOVOLOG) 1 VIAL SQ SCH ×4 (05:59→22:10)
[2017-12-26] MEDS: INSULIN DETEMIR 100 UNITS/ML MDV SQ SCH ×2 (06:00→22:02)
[2017-12-26 06:26] LABS: HEMATOCRIT 37.1 % (32.4-45.2); HEMOGLOBIN 11.8 GM/dL (10.7-15.3); LYMPH % 9.6 % (8-40); MCH 27.6 pg (25.7-33.7); MCHC 31.8 g/dl (32.0-36.0); MEAN CELL VOLUME 86.7 fl (80-96); MEAN PLT VOLUME 8.2 fl (7.5-11.1); MONO % 4.5 % (3.8-10.2); NEUT % 85.9 % (42.8-82.8); PLATELET COUNT 316 K/MM3 (134-434); RBC 4.29 M/mm3 (3.60-5.2); RDW 16.5 % (11.6-15.6); WHITE BLOOD COUNT 12.1 K/mm3 (4.0-10.0)
[2017-12-26 07:00] LABS: ARTERIAL BLD GAS O2 SATURATION 93.7 % (90-98.9); ARTERIAL BLOOD GAS BASE EXCESS 7.5 meq/l (-2-2); ARTERIAL BLOOD GAS PO2 70.9 mmHg (80-100); ARTERIAL BLOOD GAS pH 7.32 (7.35-7.45)
[2017-12-26 07:03] LABS: ALBUMIN 2.8 g/dl (3.4-5.0); ALK PHOS 65 U/L (45-117); ANION GAP 2 (8-16); BILIRUBIN,TOTAL 0.5 mg/dL (0.2-1.0); BLOOD UREA NITROGEN 23 mg/dL (7-18); CHLORIDE 97 mmol/L (98-107); CHOLESTEROL 184 mg/dL (50-200); CO2 38 mmol/L (21-32); CREATININE 0.8 mg/dL (0.55-1.02); GLUCOSE,RANDOM 215 mg/dL (74-106); HDL CHOLESTEROL 50 mg/dL (40-60); LDL CHOLESTEROL (ONLY SJRH) 113 mg/dL (5-100); MAGNESIUM 2.5 mg/dL (1.8-2.4); PHOSPHOROUS 3.4 mg/dL (2.5-4.9); POTASSIUM 5.1 mmol/L (3.5-5.1); SGOT/AST 21 U/L (15-37); SGPT/ALT 28 U/L (12-78); SODIUM 137 mmol/L (136-145); TOT PROT 6.9 g/dl (6.4-8.2); TRIGLYCERIDES 106 mg/dL (35-160)
[2017-12-26 07:32] LABS: ALLENS TEST POSITIVE; ARTERIAL BLOOD GAS PCO2 69.8 mmHg (35-45)
[2017-12-26] MEDS ORDERED: PT OWN MED DRAWER 7, Y5N ONE ×2 (09:13→21:59)
[2017-12-26] MEDS: ERTAPENEM SODIUM 1 GM in SODIUM CHLORIDE 100 ML IVPB SCH (09:14)
[2017-12-26] MEDS: ASPIRIN 81 MG CHEWABLE TABLETS PO SCH (09:15)
[2017-12-26] MEDS: PANTOPRAZOLE 20 MG TABLET (FP) PO SCH (09:15)
[2017-12-26] MEDS: FUROSEMIDE 40 MG/4 ML INJECTABLE VIAL IVPUSH SCH (09:15)
[2017-12-26] MEDS: OSELTAMIVIR PHOSPHATE 75 MG CAPSULE PO SCH ×2 (09:15→22:02)
[2017-12-26] MEDS: LOSARTAN POTASSIUM 50 MG TABLET (FP) PO SCH (09:15)
[2017-12-26] MEDS: LYTES/YERBA SANTA 240 ML BOTTLE MM SCH (09:16)
[2017-12-26] MEDS: FLUTICASONE/SALMETEROL 100 MCG/50 MCG DISKUS IH SCH ×2 (09:16→22:02)
[2017-12-26] MEDS: MUPIROCIN 2% TOPICAL OINTMENT FOR DECOLONIZATION NS SCH ×2 (09:16→22:03)
--- NOTE | 2017-12-26 10:13 | PN ---
Progress Note (short form) - Note Progress Note: PULM/CCM Pt Seen & Examined in the ICU. Off & On BIPAP vs Venti Mask, resp status remains fragile. Active Medications Albuterol/Ipratropium (Duoneb -) 1 amp NEB Q4H PRN PRN Reason: SHORTNESS OF BREATH Aspirin (Asa -) 81 mg PO DAILY [facility] Last Admin: 12/26/17 09:15 Dose: 81 mg Chlorhexidine Gluconate (Hibiclens For Decolonization -) 1 applic TP HS [facility] Last Admin: 12/25/17 21:06 Dose: 1 applic Furosemide (Lasix Injection -) 40 mg IVPUSH DAILY [facility] Last Admin: 12/26/17 09:15 Dose: 40 mg Gabapentin (Neurontin -) 300 mg PO [facility] Last Admin: 12/25/17 21:06 Dose: 300 mg Heparin Sodium (Porcine) (Heparin -) 5,000 unit SQ TID [facility] Last Admin: 12/26/17 13:36 Dose: 5,000 unit Ertapenem 1 gm/ Sodium (Chloride) 100 mls @ 50 mls/hr IVPB DAILY [facility] PRN Reason: Protocol Last Admin: 12/26/17 09:14 Dose: 50 mls/hr Insulin Aspart (Novolog Vial Sliding Scale -) 1 vial SQ ACHS [facility] PRN Reason: Protocol Last Admin: 12/26/17 17:04 Dose: 6 units Insulin Detemir (Levemir Vial) 20 units SQ BID@0700,2200 [facility] Last Admin: 12/26/17 06:00 Dose: 20 units Losartan Potassium (Cozaar -) 100 mg PO DAILY [facility] Last Admin: 12/26/17 09:15 Dose: 100 mg Methylprednisolone Sodium Succinate (Solu-Medrol -) 40 mg IVPUSH Q12H [facility] Last Admin: 12/26/17 17:03 Dose: 40 mg Mupirocin (Bactroban Ointment (For Decolonization) -) 1 applic NS BID [facility] Stop: 12/29/17 09:59 Last Admin: 12/26/17 09:16 Dose: 1 applic Oseltamivir Phosphate (Tamiflu -) 75 mg PO BID [facility] Stop: 12/28/17 10:01 Last Admin: 12/26/17 09:15 Dose: 75 mg Pantoprazole Sodium (Protonix -) 20 mg PO DAILY [facility] Last Admin: 12/26/17 09:15 Dose: 20 mg Saliva Substitute (Mouthkote Solution -) 1 applic MM DAILY [facility] Last Admin: 12/26/17 09:16 Dose: 1 applic Fluticasone/Salmeterol (Advair 100mcg/50mcg -) 1 puff IH BID [facility] Last Admin: 12/26/17 09:16 Dose: 1 inh V/S Period Temp Pulse Resp BP Sys/Rueda Pulse Ox Last 24 Hr 97.8 F-98.7 F 79-99 12-25 96-155/66-95 93-98 Intake & Output 12/23/17 12/24/17 12/25/17 12/26/17 23:59 23:59 23:59 23:59 Intake Total 580 1400 940 Output Total 3850 3900 4300 Balance -3270 -2500 -3360 Weight 158.757 kg 156.092 kg 153.4 kg 152.974 kg GEN: Middle aged woman morbidly obese, CA+O on bipap, appears comfortable HEENT: NCAT, PERRL, an-icteric, non injected sclera, no exudate PULM: Diffuse B/L fine crackles, diminished in the bases CV: nml S1 S2, RR, unable to appreciate any G/M/R. ABD: Obese, + BS, S/S NN/T N/D X4Q, no guarding EXT: 2+ dorsalis pedis pulses, warm, well-perfused. No calf tenderness. PSYCH: Cooperative. pleasant CBC, BMP 12/26/17 06:10 12/26/17 06:10 Microbiology 12/23/17 23:00 Blood - Peripheral Venous Blood Culture - Preliminary NO GROWTH OBTAINED AFTER 48 HOURS, INCUBATION TO CONTINUE FOR 3 DAYS. 12/23/17 23:00 Blood - Peripheral Venous Blood Culture - Preliminary NO GROWTH OBTAINED AFTER 48 HOURS, INCUBATION TO CONTINUE FOR 3 DAYS. 12/24/17 06:00 Urine - Urine Sahni Urine Culture - Final NO GROWTH OBTAINED 12/24/17 06:00 Urine For Antigen Detection Legionella Antigen - Final 12/24/17 06:00 Urine For Antigen Detection Streptococcus pneumoniae Antigen (M - Final 12/23/17 23:00 Nasopharyngeal Swab Influenza Types A,B Antigen (BRITT) - Final 12/23/17 23:00 Nasopharyngeal Swab - Final CXR 12/26: Since the prior study of 12/25/2017 at 0749 hours, again is a large heart, unfolded aorta, sternal sutures and congestive changes. A basilar infiltrate cannot be excluded. Follow-up recommended. ASSESS: Acute on chronic hypoxic / hypercapneic failure CHF AE of COPD Influenza A PLAN: -NIPPV as needed / VM O2 as tolerated -Nebs -Advair -Medrol -Tamiflu -ABX per ID -Gentle diuresis -ASA -Cozaar -BD TX -Glycemic control -Cardiac enzymes -VTE prophylaxis -PPI DGL, ACNP-BC [facility] ICU PULM/CCM 4436 Critical Care Total Critical Care Time (in minutes): 42 Critical Care Statement: The care of this patient involved high complexity decision making to prevent further life threatening deterioration of the patient 's condition and/or to evaluate & treat vital organ system(s) failure or risk of failure.
--- NOTE | 2017-12-26 11:54 | PN ---
Progress Note, Physician History of Present Illness: sob today on bipap - Current Medication List Current Medications: Active Medications Albuterol/Ipratropium (Duoneb -) 1 amp NEB Q4H PRN PRN Reason: SHORTNESS OF BREATH Aspirin (Asa -) 81 mg PO DAILY [facility] Last Admin: 12/26/17 09:15 Dose: 81 mg Chlorhexidine Gluconate (Hibiclens For Decolonization -) 1 applic TP HS [facility] Last Admin: 12/25/17 21:06 Dose: 1 applic Furosemide (Lasix Injection -) 40 mg IVPUSH DAILY [facility] Last Admin: 12/26/17 09:15 Dose: 40 mg Gabapentin (Neurontin -) 300 mg PO HS [facility] Last Admin: 12/25/17 21:06 Dose: 300 mg Heparin Sodium (Porcine) (Heparin -) 5,000 unit SQ TID [facility] Last Admin: 12/26/17 05:50 Dose: 5,000 unit Ertapenem 1 gm/ Sodium (Chloride) 100 mls @ 50 mls/hr IVPB DAILY [facility] PRN Reason: Protocol Last Admin: 12/26/17 09:14 Dose: 50 mls/hr Insulin Aspart (Novolog Vial Sliding Scale -) 1 vial SQ ACHS [facility] PRN Reason: Protocol Last Admin: 12/26/17 05:59 Dose: 4 units Insulin Detemir (Levemir Vial) 20 units SQ BID@0700,2200 [facility] Last Admin: 12/26/17 06:00 Dose: 20 units Losartan Potassium (Cozaar -) 100 mg PO DAILY [facility] Last Admin: 12/26/17 09:15 Dose: 100 mg Methylprednisolone Sodium Succinate (Solu-Medrol -) 40 mg IVPUSH Q12H [facility] Last Admin: 12/26/17 05:50 Dose: 40 mg Mupirocin (Bactroban Ointment (For Decolonization) -) 1 applic NS BID [facility] Stop: 12/29/17 09:59 Last Admin: 12/26/17 09:16 Dose: 1 applic Oseltamivir Phosphate (Tamiflu -) 75 mg PO BID [facility] Stop: 12/28/17 10:01 Last Admin: 12/26/17 09:15 Dose: 75 mg Pantoprazole Sodium (Protonix -) 20 mg PO DAILY [facility] Last Admin: 12/26/17 09:15 Dose: 20 mg Saliva Substitute (Mouthkote Solution -) 1 applic MM DAILY [facility] Last Admin: 12/26/17 09:16 Dose: 1 applic Fluticasone/Salmeterol (Advair 100mcg/50mcg -) 1 puff IH BID [facility] Last Admin: 12/26/17 09:16 Dose: 1 inh - Objective Vital Signs: Vital Signs Temperature 97.8 F 12/26/17 10:00 Pulse Rate 87 12/26/17 11:39 Respiratory Rate 23 12/26/17 10:00 Blood Pressure 155/67 12/26/17 10:00 O2 Sat by Pulse Oximetry (%) 95 12/26/17 11:39 Constitutional: Yes: Calm, Mild Distress, Obese Cardiovascular: Yes: Regular Rate and Rhythm Respiratory: Yes: Regular, On BiPap Gastrointestinal: Yes: Normal Bowel Sounds, Soft Musculoskeletal: Yes: WNL Extremities: Yes: WNL Neurological: Yes: Alert, Oriented Psychiatric: Yes: Alert, Oriented Labs: CBC, BMP 12/26/17 06:10 12/26/17 06:10 INR, PTT INR 1.19 (0.82-1.09) H 12/23/17 23:00 - ....Imaging Chest X-ray: Report Reviewed, Image Reviewed Assessment/Plan Problem List - Problems (1) Demand ischemia Code(s): I24.8 - OTHER FORMS OF ACUTE ISCHEMIC HEART DISEASE (2) CAD (coronary artery disease) of artery bypass graft Code(s): I25.810 - ATHEROSCLEROSIS OF CABG W/O ANGINA PECTORIS Qualifiers: [place] vs. transplanted heart: [place] heart Associated angina: without angina Qualified Code(s): I25.810 - Atherosclerosis of coronary artery bypass graft(s) without angina pectoris (3) Elevated troponin I level Code(s): R74.8 - ABNORMAL LEVELS OF OTHER SERUM ENZYMES (4) HTN (hypertension) Code(s): I10 - ESSENTIAL (PRIMARY) HYPERTENSION Qualifiers: Hypertension type: essential hypertension Qualified Code(s): I10 - Essential (primary) hypertension (5) Influenza A Code(s): J10.1 - FLU DUE TO OTH IDENT INFLUENZA VIRUS W OTH RESP MANIFEST (6) Morbid obesity with BMI of 50.0-59.9, adult Code(s): E66.01 - MORBID (SEVERE) OBESITY DUE TO EXCESS CALORIES; Z68.43 - BODY MASS INDEX (BMI) 50-59.9 , ADULT (7) Respiratory failure with hypoxia and hypercapnia Code(s): J96.91 - RESPIRATORY FAILURE, UNSPECIFIED WITH HYPOXIA; J96.92 - RESPIRATORY FAILURE, UNSPECIFIED WITH HYPERCAPNIA Qualifiers: Chronicity: acute on chronic Qualified Code(s): J96.21 - Acute and chronic respiratory failure with hypoxia; J96.22 - Acute and chronic respiratory failure with hypercapnia; J96.22 - Acute and chronic respiratory failure with hypercapnia; J96.22 - Acute and chronic respiratory failure with hypercapnia (8) Uncontrolled diabetes mellitus Code(s): E11.65 - TYPE 2 DIABETES MELLITUS WITH HYPERGLYCEMIA Qualifiers: Diabetes mellitus type: type 2 Diabetes mellitus complication status: without complication Diabetes mellitus manager terminal insulin use: without manager terminal use Qualified Code(s): E11.65 - Type 2 diabetes mellitus with hyperglycemia (9) COPD exacerbation Code(s): J44.1 - CHRONIC OBSTRUCTIVE PULMONARY DISEASE W (ACUTE) EXACERBATION (10) Shortness of breath Code(s): R06.02 - SHORTNESS OF BREATH 11 pneumonia plan continue abx continue monitoring resp support rest continue to monitor cc time 40 min
--- NOTE | 2017-12-26 12:42 | PN ---
Progress Note, Physician Chief Complaint: Currently on BIPAP Dyspnea History of Present Illness: Patient was seen and examined in ICU. Awake and arousable. Chart was reviewed Patient is in isolation and is on BIPAP - Current Medication List Current Medications: Active Medications Albuterol/Ipratropium (Duoneb -) 1 amp NEB Q4H PRN PRN Reason: SHORTNESS OF BREATH Aspirin (Asa -) 81 mg PO DAILY [facility] Last Admin: 12/26/17 09:15 Dose: 81 mg Chlorhexidine Gluconate (Hibiclens For Decolonization -) 1 applic TP HS [facility] Last Admin: 12/25/17 21:06 Dose: 1 applic Furosemide (Lasix Injection -) 40 mg IVPUSH DAILY [facility] Last Admin: 12/26/17 09:15 Dose: 40 mg Gabapentin (Neurontin -) 300 mg PO HS [facility] Last Admin: 12/25/17 21:06 Dose: 300 mg Heparin Sodium (Porcine) (Heparin -) 5,000 unit SQ TID [facility] Last Admin: 12/26/17 05:50 Dose: 5,000 unit Ertapenem 1 gm/ Sodium (Chloride) 100 mls @ 50 mls/hr IVPB DAILY [facility] PRN Reason: Protocol Last Admin: 12/26/17 09:14 Dose: 50 mls/hr Insulin Aspart (Novolog Vial Sliding Scale -) 1 vial SQ ACHS [facility] PRN Reason: Protocol Last Admin: 12/26/17 12:13 Dose: 10 units Insulin Detemir (Levemir Vial) 20 units SQ BID@0700,2200 [facility] Last Admin: 12/26/17 06:00 Dose: 20 units Losartan Potassium (Cozaar -) 100 mg PO DAILY [facility] Last Admin: 12/26/17 09:15 Dose: 100 mg Methylprednisolone Sodium Succinate (Solu-Medrol -) 40 mg IVPUSH Q12H [facility] Last Admin: 12/26/17 05:50 Dose: 40 mg Mupirocin (Bactroban Ointment (For Decolonization) -) 1 applic NS BID [facility] Stop: 12/29/17 09:59 Last Admin: 12/26/17 09:16 Dose: 1 applic Oseltamivir Phosphate (Tamiflu -) 75 mg PO BID [facility] Stop: 12/28/17 10:01 Last Admin: 12/26/17 09:15 Dose: 75 mg Pantoprazole Sodium (Protonix -) 20 mg PO DAILY [facility] Last Admin: 12/26/17 09:15 Dose: 20 mg Saliva Substitute (Mouthkote Solution -) 1 applic MM DAILY [facility] Last Admin: 12/26/17 09:16 Dose: 1 applic Fluticasone/Salmeterol (Advair 100mcg/50mcg -) 1 puff IH BID [facility] Last Admin: 12/26/17 09:16 Dose: 1 inh - Objective Vital Signs: Vital Signs Temperature 97.8 F 12/26/17 10:00 Pulse Rate 99 H 12/26/17 12:00 Respiratory Rate 20 12/26/17 12:00 Blood Pressure 124/95 12/26/17 12:00 O2 Sat by Pulse Oximetry (%) 95 12/26/17 11:39 Eyes: Yes: PERRL Cardiovascular: Yes: Regular Rate and Rhythm, S1, S2 Respiratory: Yes: Diminished, On BiPap, Rhonchi Gastrointestinal: Yes: Normal Bowel Sounds, Soft, Abdomen, Obese. No: Tenderness Edema: No Additional Findings/Remarks: - Review of Systems Constitutional: denies: Chills, Fever Cardiovascular: reports: Shortness of Breath. denies: Chest Pain, Palpitations Respiratory: reports: Cough, SOB, SOB on Exertion. denies: Hemoptysis, Orthopnea, PND Gastrointestinal: denies: Abdominal Pain, Constipation, Diarrhea, Dysphagia, Melena, Nausea, Rectal Bleeding, Vomiting Neurological: denies: Dizziness, Headache, Seizure, Syncope Labs: CBC, BMP 12/26/17 06:10 12/26/17 06:10 Problem List - Problems (1) Demand ischemia Code(s): I24.8 - OTHER FORMS OF ACUTE ISCHEMIC HEART DISEASE (2) CAD (coronary artery disease) of artery bypass graft Code(s): I25.810 - ATHEROSCLEROSIS OF CABG W/O ANGINA PECTORIS Qualifiers: Qualified Code(s): I25.810 - Atherosclerosis of coronary artery bypass graft( s) without angina pectoris (3) Elevated troponin I level Code(s): R74.8 - ABNORMAL LEVELS OF OTHER SERUM ENZYMES (4) HTN (hypertension) Code(s): I10 - ESSENTIAL (PRIMARY) HYPERTENSION Qualifiers: Qualified Code(s): I10 - Essential (primary) hypertension (5) Influenza A Code(s): J10.1 - FLU DUE TO OTH IDENT INFLUENZA VIRUS W OTH RESP MANIFEST (6) Morbid obesity with BMI of 50.0-59.9, adult Code(s): E66.01 - MORBID (SEVERE) OBESITY DUE TO EXCESS CALORIES; Z68.43 - BODY MASS INDEX (BMI) 50-59.9 , ADULT (7) Respiratory failure with hypoxia and hypercapnia Code(s): J96.91 - RESPIRATORY FAILURE, UNSPECIFIED WITH HYPOXIA; J96.92 - RESPIRATORY FAILURE, UNSPECIFIED WITH HYPERCAPNIA Qualifiers: Qualified Code(s): J96.21 - Acute and chronic respiratory failure with hypoxia; J96.22 - Acute and chronic respiratory failure with hypercapnia; J96.22 - Acute and chronic respiratory failure with hypercapnia; J96.22 - Acute and chronic respiratory failure with hypercapnia (8) Uncontrolled diabetes mellitus Code(s): E11.65 - TYPE 2 DIABETES MELLITUS WITH HYPERGLYCEMIA Qualifiers: Qualified Code(s): E11.65 - Type 2 diabetes mellitus with hyperglycemia (9) COPD exacerbation Code(s): J44.1 - CHRONIC OBSTRUCTIVE PULMONARY DISEASE W (ACUTE) EXACERBATION (10) Shortness of breath Code(s): R06.02 - SHORTNESS OF BREATH Assessment/Plan 1. Clinical presentation with respiratory failure - (+) Influenza A 2. Coronary artery disease post CABG, angina pectoris - elevated troponin due to demand ischemia 3. LV systolic dysfunction - acute on chronic class II NYHA classification heart failure 4. Hypertension 5. Borderline diabetes mellitus 6. COPD PLAN: 1. Continue BIPAP. Continue Tamiflu and antibiotic support. Continue steroid taper and bronchodilators 2. Further cardiac work up after clinical improvement 3. Continue Losartan as tolerated. Consider Carvedilol when respiratory status improves 4. Continue ASA 81 mg once a day 6. Troponin has come down. Continue supportive care Further plans are to follow Fitz Arboleda MD
--- NOTE | 2017-12-26 12:52 | PN ---
Progress Note, Physician Chief Complaint: Off BIPAP on Venti Mask doing well History of Present Illness: 67 yrs old F H/O advanced COPD on Home O2 Non Complaint, CAD, HTN, T2DM, present with 1 day H/o worsening SOB< fever and Cough on arrival in mixed Hypoxic and Hypercarbic respiratory failure elevated TWBC , Influenza A a + B/L Pulmonary infiltrate , EKG QTC prolongation recived IV Dexmethasone, nebs, IV Levofloxacin and Tamiflu with BIPAP, Hypoxia improved admitted in ICU for further management. - Current Medication List Current Medications: Active Medications Albuterol/Ipratropium (Duoneb -) 1 amp NEB Q4H PRN PRN Reason: SHORTNESS OF BREATH Aspirin (Asa -) 81 mg PO DAILY [facility] Last Admin: 12/26/17 09:15 Dose: 81 mg Chlorhexidine Gluconate (Hibiclens For Decolonization -) 1 applic TP HS [facility] Last Admin: 12/25/17 21:06 Dose: 1 applic Furosemide (Lasix Injection -) 40 mg IVPUSH DAILY [facility] Last Admin: 12/26/17 09:15 Dose: 40 mg Gabapentin (Neurontin -) 300 mg PO HS [facility] Last Admin: 12/25/17 21:06 Dose: 300 mg Heparin Sodium (Porcine) (Heparin -) 5,000 unit SQ TID [facility] Last Admin: 12/26/17 05:50 Dose: 5,000 unit Ertapenem 1 gm/ Sodium (Chloride) 100 mls @ 50 mls/hr IVPB DAILY [facility] PRN Reason: Protocol Last Admin: 12/26/17 09:14 Dose: 50 mls/hr Insulin Aspart (Novolog Vial Sliding Scale -) 1 vial SQ ACHS [facility] PRN Reason: Protocol Last Admin: 12/26/17 12:13 Dose: 10 units Insulin Detemir (Levemir Vial) 20 units SQ BID@0700,2200 [facility] Last Admin: 12/26/17 06:00 Dose: 20 units Losartan Potassium (Cozaar -) 100 mg PO DAILY [facility] Last Admin: 12/26/17 09:15 Dose: 100 mg Methylprednisolone Sodium Succinate (Solu-Medrol -) 40 mg IVPUSH Q12H [facility] Last Admin: 12/26/17 05:50 Dose: 40 mg Mupirocin (Bactroban Ointment (For Decolonization) -) 1 applic NS BID [facility] Stop: 12/29/17 09:59 Last Admin: 12/26/17 09:16 Dose: 1 applic Oseltamivir Phosphate (Tamiflu -) 75 mg PO BID [facility] Stop: 12/28/17 10:01 Last Admin: 12/26/17 09:15 Dose: 75 mg Pantoprazole Sodium (Protonix -) 20 mg PO DAILY [facility] Last Admin: 12/26/17 09:15 Dose: 20 mg Saliva Substitute (Mouthkote Solution -) 1 applic MM DAILY [facility] Last Admin: 12/26/17 09:16 Dose: 1 applic Fluticasone/Salmeterol (Advair 100mcg/50mcg -) 1 puff IH BID [facility] Last Admin: 12/26/17 09:16 Dose: 1 inh - Objective Vital Signs: Vital Signs Temperature 97.8 F 12/26/17 10:00 Pulse Rate 99 H 12/26/17 12:00 Respiratory Rate 20 12/26/17 12:00 Blood Pressure 124/95 12/26/17 12:00 O2 Sat by Pulse Oximetry (%) 95 12/26/17 11:39 Labs: CBC, BMP 12/26/17 06:10 12/26/17 06:10 INR, PTT INR 1.19 (0.82-1.09) H 12/23/17 23:00 Problem List - Problems (1) Respiratory failure with hypoxia and hypercapnia Code(s): J96.91 - RESPIRATORY FAILURE, UNSPECIFIED WITH HYPOXIA; J96.92 - RESPIRATORY FAILURE, UNSPECIFIED WITH HYPERCAPNIA Qualifiers: Chronicity: acute on chronic Qualified Code(s): J96.21 - Acute and chronic respiratory failure with hypoxia; J96.22 - Acute and chronic respiratory failure with hypercapnia; J96.22 - Acute and chronic respiratory failure with hypercapnia; J96.22 - Acute and chronic respiratory failure with hypercapnia (2) Chronic obstructive pulmonary disease with (acute) exacerbation Code(s): J44.1 - CHRONIC OBSTRUCTIVE PULMONARY DISEASE W (ACUTE) EXACERBATION (3) Influenza A Code(s): J10.1 - FLU DUE TO OTH IDENT INFLUENZA VIRUS W OTH RESP MANIFEST (4) Pneumonia Code(s): J18.9 - PNEUMONIA, UNSPECIFIED ORGANISM Qualifiers: Pneumonia type: due to unspecified organism (5) CHF exacerbation Assessment/Plan: Elevated PrO BNP, Pulmonary congestion, no known EF will F/I ECHO and cardiology consult, recived Lasicx in the ED Code(s): I50.9 - HEART FAILURE, UNSPECIFIED (6) Uncontrolled diabetes mellitus Assessment/Plan: Hold PO Medsa add Levimir 15units with corretion dose insulin F/u accucheck HbA1C Code(s): E11.65 - TYPE 2 DIABETES MELLITUS WITH HYPERGLYCEMIA Qualifiers: Diabetes mellitus type: type 2 Diabetes mellitus complication status: without complication Diabetes mellitus [facility] insulin use: without termite control servicer use Qualified Code(s): E11.65 - Type 2 diabetes mellitus with hyperglycemia (7) HTN (hypertension) Assessment/Plan: Cont Home medication Code(s): I10 - ESSENTIAL (PRIMARY) HYPERTENSION Qualifiers: Hypertension type: essential hypertension Qualified Code(s): I10 - Essential (primary) hypertension (8) Morbid obesity with BMI of 50.0-59.9, adult Code(s): E66.01 - MORBID (SEVERE) OBESITY DUE TO EXCESS CALORIES; Z68.43 - BODY MASS INDEX (BMI) 50-59.9 , ADULT (9) CAD (coronary artery disease) of artery bypass graft Assessment/Plan: No C/O chest pain mildly elevated troponin I . , No acute St T cages add ASa F/ U Lipid serial CE and EKG cardiology consult. Code(s): I25.810 - ATHEROSCLEROSIS OF CABG W/O ANGINA PECTORIS Qualifiers: [place] vs. transplanted heart: [place] heart Associated angina: without angina Qualified Code(s): I25.810 - Atherosclerosis of coronary artery bypass graft(s) without angina pectoris (10) Elevated troponin I level Assessment/Plan: Elevated trop I no acute St T changes no chest pain most likely Demand ischemia will F/U Cardiology input add ASA, Lipid panel, TSH Code(s): R74.8 - ABNORMAL LEVELS OF OTHER SERUM ENZYMES
[2017-12-26] MEDS: GABAPENTIN 300 MG CAPSULE (FP) PO SCH (22:02)
[2017-12-26] MEDS: CHLORHEXIDINE GLUCONATE 4% CLEANSER FOR DECOLONIZATION TP SCH (22:02)
[2017-12-27] MEDS: INSULIN SLIDING SCALE (NOVOLOG) 1 VIAL SQ SCH ×4 (06:31→22:01)
[2017-12-27] MEDS: HEPARIN NA (PORCINE) 5,000 UNITS/ML 1ML VIAL SQ SCH ×3 (06:31→21:52)
[2017-12-27] MEDS: methylPREDNISolone NA SUCC 40 MG/1 ML VIAL IVPUSH SCH ×2 (06:33→17:07)
[2017-12-27] MEDS: INSULIN DETEMIR 100 UNITS/ML MDV SQ SCH ×2 (06:33→21:53)
[2017-12-27] MEDS ORDERED: PT OWN MED DRAWER 7, Y5N ONE (10:03)
[2017-12-27] MEDS: ASPIRIN 81 MG CHEWABLE TABLETS PO SCH (10:39)
[2017-12-27] MEDS: FLUTICASONE/SALMETEROL 100 MCG/50 MCG DISKUS IH SCH ×2 (10:39→22:01)
[2017-12-27] MEDS: LOSARTAN POTASSIUM 50 MG TABLET (FP) PO SCH (10:40)
[2017-12-27] MEDS: MUPIROCIN 2% TOPICAL OINTMENT FOR DECOLONIZATION NS SCH ×2 (10:40→21:51)
[2017-12-27] MEDS: PANTOPRAZOLE 20 MG TABLET (FP) PO SCH (10:41)
[2017-12-27] MEDS: FUROSEMIDE 40 MG/4 ML INJECTABLE VIAL IVPUSH SCH (10:41)
[2017-12-27] MEDS: OSELTAMIVIR PHOSPHATE 75 MG CAPSULE PO SCH ×2 (10:42→22:05)
[2017-12-27] MEDS: LYTES/YERBA SANTA 240 ML BOTTLE MM SCH (10:42)
[2017-12-27] MEDS: ERTAPENEM SODIUM 1 GM in SODIUM CHLORIDE 100 ML IVPB SCH (10:45)
--- NOTE | 2017-12-27 12:47 | PN ---
Progress Note, Physician Chief Complaint: Off BIPAP on Venti Mask doing well History of Present Illness: 67 yrs old F H/O advanced COPD on Home O2 Non Complaint, CAD, HTN, T2DM, present with 1 day H/o worsening SOB< fever and Cough on arrival in mixed Hypoxic and Hypercarbic respiratory failure elevated TWBC , Influenza A a + B/L Pulmonary infiltrate , EKG QTC prolongation recived IV Dexmethasone, nebs, IV Levofloxacin and Tamiflu with BIPAP, Hypoxia improved admitted in ICU for further management. - Current Medication List Current Medications: Active Medications Albuterol/Ipratropium (Duoneb -) 1 amp NEB Q4H PRN PRN Reason: SHORTNESS OF BREATH Aspirin (Asa -) 81 mg PO DAILY [facility] Last Admin: 12/27/17 10:39 Dose: 81 mg Chlorhexidine Gluconate (Hibiclens For Decolonization -) 1 applic TP HS [facility] Last Admin: 12/26/17 22:02 Dose: 1 applic Furosemide (Lasix Injection -) 40 mg IVPUSH DAILY [facility] Last Admin: 12/27/17 10:41 Dose: 40 mg Gabapentin (Neurontin -) 300 mg PO HS [facility] Last Admin: 12/26/17 22:02 Dose: 300 mg Heparin Sodium (Porcine) (Heparin -) 5,000 unit SQ TID [facility] Last Admin: 12/27/17 06:31 Dose: 5,000 unit Ertapenem 1 gm/ Sodium (Chloride) 100 mls @ 50 mls/hr IVPB DAILY [facility] PRN Reason: Protocol Last Admin: 12/27/17 10:45 Dose: 50 mls/hr Insulin Aspart (Novolog Vial Sliding Scale -) 1 vial SQ ACHS [facility] PRN Reason: Protocol Last Admin: 12/27/17 10:47 Dose: 8 units Insulin Detemir (Levemir Vial) 24 units SQ BID@0700,2200 [facility] Losartan Potassium (Cozaar -) 100 mg PO DAILY [facility] Last Admin: 12/27/17 10:40 Dose: 100 mg Methylprednisolone Sodium Succinate (Solu-Medrol -) 40 mg IVPUSH Q12H [facility] Last Admin: 12/27/17 06:33 Dose: 40 mg Mupirocin (Bactroban Ointment (For Decolonization) -) 1 applic NS BID [facility] Stop: 12/29/17 09:59 Last Admin: 12/27/17 10:40 Dose: 1 applic Oseltamivir Phosphate (Tamiflu -) 75 mg PO BID [facility] Stop: 12/28/17 10:01 Last Admin: 12/27/17 10:42 Dose: 75 mg Pantoprazole Sodium (Protonix -) 20 mg PO DAILY [facility] Last Admin: 12/27/17 10:41 Dose: 20 mg Saliva Substitute (Mouthkote Solution -) 1 applic MM DAILY [facility] Last Admin: 12/27/17 10:42 Dose: 1 applic Fluticasone/Salmeterol (Advair 100mcg/50mcg -) 1 puff IH BID [facility] Last Admin: 12/27/17 10:39 Dose: 1 inh - Objective Vital Signs: Vital Signs Temperature 98.8 F 12/27/17 06:00 Pulse Rate 90 12/27/17 09:09 Respiratory Rate 20 12/27/17 06:00 Blood Pressure 111/65 12/27/17 06:00 O2 Sat by Pulse Oximetry (%) 92 L 12/27/17 11:57 Elderly F not in acute distress, HEENT: MM dry. mild anemia, PERRLA EOMI NECK; No JVd , No Bruit CHEST: B/L Diffuse wheezes CVS: S1S2 R no m/g/r ABD: Obese, no distention, non tender Bs + EXT: Trace edema feet, no calf tenderness, no assumetry B/L Knee Pain. Pulses + GEOGRAPHIC INFORMATION SYSTEM ANALYST: AOx3 non focal Labs: CBC, BMP 12/26/17 06:10 12/26/17 06:10 INR, PTT INR 1.19 (0.82-1.09) H 12/23/17 23:00 Problem List - Problems (1) Respiratory failure with hypoxia and hypercapnia Assessment/Plan: Know case of COPD non compliant with Home O2 present with Respiratory acidosis with Hypoxia nd Hypecarbia with fever , Influenza A +, ? B/L LL Infitrates on IV abx improving Code(s): J96.91 - RESPIRATORY FAILURE, UNSPECIFIED WITH HYPOXIA; J96.92 - RESPIRATORY FAILURE, UNSPECIFIED WITH HYPERCAPNIA Qualifiers: Chronicity: acute on chronic Qualified Code(s): J96.21 - Acute and chronic respiratory failure with hypoxia; J96.22 - Acute and chronic respiratory failure with hypercapnia; J96.22 - Acute and chronic respiratory failure with hypercapnia; J96.22 - Acute and chronic respiratory failure with hypercapnia (2) Chronic obstructive pulmonary disease with (acute) exacerbation Assessment/Plan: Present with COPD exacerbation, Cont Nebs IV abx and Respiratory management BIPAP as per Pulmonary Critical care consult Code(s): J44.1 - CHRONIC OBSTRUCTIVE PULMONARY DISEASE W (ACUTE) EXACERBATION (3) Influenza A Assessment/Plan: On tamiflu Code(s): J10.1 - FLU DUE TO OTH IDENT INFLUENZA VIRUS W OTH RESP MANIFEST (4) Pneumonia Assessment/Plan: Post Viral CABP on entrapenam Code(s): J18.9 - PNEUMONIA, UNSPECIFIED ORGANISM Qualifiers: Pneumonia type: due to unspecified organism (5) CHF exacerbation Assessment/Plan: CpOmfortable less respiratory distress Code(s): I50.9 - HEART FAILURE, UNSPECIFIED (6) Uncontrolled diabetes mellitus Assessment/Plan: Hb A!C > 9 FS are poorly controlled increse Levimir dose to 24 BID Code(s): E11.65 - TYPE 2 DIABETES MELLITUS WITH HYPERGLYCEMIA Qualifiers: Diabetes mellitus type: type 2 Diabetes mellitus complication status: without complication Diabetes mellitus waterm[place] insulin use: without chcf use Qualified Code(s): E11.65 - Type 2 diabetes mellitus with hyperglycemia (7) HTN (hypertension) Assessment/Plan: Cont Home medication Code(s): I10 - ESSENTIAL (PRIMARY) HYPERTENSION Qualifiers: Hypertension type: essential hypertension Qualified Code(s): I10 - Essential (primary) hypertension (8) Morbid obesity with BMI of 50.0-59.9, adult Assessment/Plan: Nutritional consult as out patient Code(s): E66.01 - MORBID (SEVERE) OBESITY DUE TO EXCESS CALORIES; Z68.43 - BODY MASS INDEX (BMI) 50-59.9 , ADULT (9) CAD (coronary artery disease) of artery bypass graft Assessment/Plan: No C/O chest pain mildly elevated troponin I . ,most like;y Demand ischemia Code(s): I25.810 - ATHEROSCLEROSIS OF CABG W/O ANGINA PECTORIS Qualifiers: [place] vs. transplanted heart: [place] heart Associated angina: without angina Qualified Code(s): I25.810 - Atherosclerosis of coronary artery bypass graft(s) without angina pectoris (10) Elevated troponin I level Assessment/Plan: Elevated trop I no acute St T changes no chest pain most likely Demand ischemia , cardiology input appreciated Code(s): R74.8 - ABNORMAL LEVELS OF OTHER SERUM ENZYMES
--- NOTE | 2017-12-27 15:48 | PN ---
Progress Note, Physician History of Present Illness: starting to feel better no complaints breathing better - Current Medication List Current Medications: Active Medications Albuterol/Ipratropium (Duoneb -) 1 amp NEB Q4H PRN PRN Reason: SHORTNESS OF BREATH Aspirin (Asa -) 81 mg PO DAILY [facility] Last Admin: 12/27/17 10:39 Dose: 81 mg Chlorhexidine Gluconate (Hibiclens For Decolonization -) 1 applic TP HS [facility] Last Admin: 12/26/17 22:02 Dose: 1 applic Furosemide (Lasix Injection -) 40 mg IVPUSH DAILY [facility] Last Admin: 12/27/17 10:41 Dose: 40 mg Gabapentin (Neurontin -) 300 mg PO HS [facility] Last Admin: 12/26/17 22:02 Dose: 300 mg Heparin Sodium (Porcine) (Heparin -) 5,000 unit SQ TID [facility] Last Admin: 12/27/17 06:31 Dose: 5,000 unit Ertapenem 1 gm/ Sodium (Chloride) 100 mls @ 50 mls/hr IVPB DAILY [facility] PRN Reason: Protocol Last Admin: 12/27/17 10:45 Dose: 50 mls/hr Insulin Aspart (Novolog Vial Sliding Scale -) 1 vial SQ ACHS [facility] PRN Reason: Protocol Last Admin: 12/27/17 10:47 Dose: 8 units Insulin Detemir (Levemir Vial) 24 units SQ BID@0700,2200 [facility] Losartan Potassium (Cozaar -) 100 mg PO DAILY [facility] Last Admin: 12/27/17 10:40 Dose: 100 mg Methylprednisolone Sodium Succinate (Solu-Medrol -) 40 mg IVPUSH Q12H [facility] Last Admin: 12/27/17 06:33 Dose: 40 mg Mupirocin (Bactroban Ointment (For Decolonization) -) 1 applic NS BID [facility] Stop: 12/29/17 09:59 Last Admin: 12/27/17 10:40 Dose: 1 applic Oseltamivir Phosphate (Tamiflu -) 75 mg PO BID [facility] Stop: 12/28/17 10:01 Last Admin: 12/27/17 10:42 Dose: 75 mg Pantoprazole Sodium (Protonix -) 20 mg PO DAILY [facility] Last Admin: 12/27/17 10:41 Dose: 20 mg Saliva Substitute (Mouthkote Solution -) 1 applic MM DAILY [facility] Last Admin: 12/27/17 10:42 Dose: 1 applic Fluticasone/Salmeterol (Advair 100mcg/50mcg -) 1 puff IH BID [facility] Last Admin: 12/27/17 10:39 Dose: 1 inh - Objective Vital Signs: Vital Signs Temperature 98.8 F 12/27/17 06:00 Pulse Rate 90 12/27/17 09:09 Respiratory Rate 20 12/27/17 06:00 Blood Pressure 111/65 12/27/17 06:00 O2 Sat by Pulse Oximetry (%) 92 L 12/27/17 15:17 Constitutional: Yes: No Distress, Calm, Obese Neck: Yes: Supple Cardiovascular: Yes: Regular Rate and Rhythm Respiratory: Yes: On Nasal O2, Poor Air Entry, Wheezes Gastrointestinal: Yes: Normal Bowel Sounds, Soft Musculoskeletal: Yes: WNL Extremities: Yes: WNL Neurological: Yes: Alert, Oriented Psychiatric: Yes: Alert, Oriented Labs: CBC, BMP 12/26/17 06:10 12/26/17 06:10 INR, PTT INR 1.19 (0.82-1.09) H 12/23/17 23:00 Assessment/Plan Problem List - Problems (1) Demand ischemia Code(s): I24.8 - OTHER FORMS OF ACUTE ISCHEMIC HEART DISEASE (2) CAD (coronary artery disease) of artery bypass graft Code(s): I25.810 - ATHEROSCLEROSIS OF CABG W/O ANGINA PECTORIS Qualifiers: [place] vs. transplanted heart: [place] heart Associated angina: without angina Qualified Code(s): I25.810 - Atherosclerosis of coronary artery bypass graft(s) without angina pectoris (3) Elevated troponin I level Code(s): R74.8 - ABNORMAL LEVELS OF OTHER SERUM ENZYMES (4) HTN (hypertension) Code(s): I10 - ESSENTIAL (PRIMARY) HYPERTENSION Qualifiers: Hypertension type: essential hypertension Qualified Code(s): I10 - Essential (primary) hypertension (5) Influenza A Code(s): J10.1 - FLU DUE TO OTH IDENT INFLUENZA VIRUS W OTH RESP MANIFEST (6) Morbid obesity with BMI of 50.0-59.9, adult Code(s): E66.01 - MORBID (SEVERE) OBESITY DUE TO EXCESS CALORIES; Z68.43 - BODY MASS INDEX (BMI) 50-59.9 , ADULT (7) Respiratory failure with hypoxia and hypercapnia Code(s): J96.91 - RESPIRATORY FAILURE, UNSPECIFIED WITH HYPOXIA; J96.92 - RESPIRATORY FAILURE, UNSPECIFIED WITH HYPERCAPNIA Qualifiers: Chronicity: acute on chronic Qualified Code(s): J96.21 - Acute and chronic respiratory failure with hypoxia; J96.22 - Acute and chronic respiratory failure with hypercapnia; J96.22 - Acute and chronic respiratory failure with hypercapnia; J96.22 - Acute and chronic respiratory failure with hypercapnia (8) Uncontrolled diabetes mellitus Code(s): E11.65 - TYPE 2 DIABETES MELLITUS WITH HYPERGLYCEMIA Qualifiers: Diabetes mellitus type: type 2 Diabetes mellitus complication status: without complication Diabetes mellitus environmental lead insulin use: without halfway use Qualified Code(s): E11.65 - Type 2 diabetes mellitus with hyperglycemia (9) COPD exacerbation Code(s): J44.1 - CHRONIC OBSTRUCTIVE PULMONARY DISEASE W (ACUTE) EXACERBATION (10) Shortness of breath Code(s): R06.02 - SHORTNESS OF BREATH 11 pneumonia plan conitue abx continue monitoring resp support rest continue to monitor cc time 40 min
--- NOTE | 2017-12-27 16:43 | PN ---
Progress Note (short form) - Note Progress Note: PULM/CCM Pt Seen & Examined in the ICU. Much better today. OOB --> Chair. Nocturnal BIPAP. Active Medications Albuterol/Ipratropium (Duoneb -) 1 amp NEB Q4H PRN PRN Reason: SHORTNESS OF BREATH Aspirin (Asa -) 81 mg PO DAILY [facility] Last Admin: 12/27/17 10:39 Dose: 81 mg Chlorhexidine Gluconate (Hibiclens For Decolonization -) 1 applic TP HS [facility] Last Admin: 12/26/17 22:02 Dose: 1 applic Furosemide (Lasix Injection -) 40 mg IVPUSH DAILY [facility] Last Admin: 12/27/17 10:41 Dose: 40 mg Gabapentin (Neurontin -) 300 mg PO [facility] Last Admin: 12/26/17 22:02 Dose: 300 mg Heparin Sodium (Porcine) (Heparin -) 5,000 unit SQ TID [facility] Last Admin: 12/27/17 06:31 Dose: 5,000 unit Ertapenem 1 gm/ Sodium (Chloride) 100 mls @ 50 mls/hr IVPB DAILY [facility] PRN Reason: Protocol Last Admin: 12/27/17 10:45 Dose: 50 mls/hr Insulin Aspart (Novolog Vial Sliding Scale -) 1 vial SQ ACHS [facility] PRN Reason: Protocol Last Admin: 12/27/17 10:47 Dose: 8 units Insulin Detemir (Levemir Vial) 24 units SQ BID@0700,2200 [facility] Losartan Potassium (Cozaar -) 100 mg PO DAILY [facility] Last Admin: 12/27/17 10:40 Dose: 100 mg Methylprednisolone Sodium Succinate (Solu-Medrol -) 40 mg IVPUSH Q12H [facility] Last Admin: 12/27/17 06:33 Dose: 40 mg Mupirocin (Bactroban Ointment (For Decolonization) -) 1 applic NS BID [facility] Stop: 12/29/17 09:59 Last Admin: 12/27/17 10:40 Dose: 1 applic Oseltamivir Phosphate (Tamiflu -) 75 mg PO BID [facility] Stop: 12/28/17 10:01 Last Admin: 12/27/17 10:42 Dose: 75 mg Pantoprazole Sodium (Protonix -) 20 mg PO DAILY [facility] Last Admin: 12/27/17 10:41 Dose: 20 mg Saliva Substitute (Mouthkote Solution -) 1 applic MM DAILY [facility] Last Admin: 12/27/17 10:42 Dose: 1 applic Fluticasone/Salmeterol (Advair 100mcg/50mcg -) 1 puff IH BID [facility] Last Admin: 12/27/17 10:39 Dose: 1 inh Vital Signs Period Temp Pulse Resp BP Sys/Rueda Pulse Ox Last 24 Hr 97.8 F-99 F 77-98 20-25 96-118/16-85 92-98 Intake & Output 12/24/17 12/25/17 12/26/17 12/27/17 23:59 23:59 23:59 23:59 Intake Total 580 1400 1940 300 Output Total 3850 3900 5300 600 Balance -3270 -2500 -3360 -300 Weight 156.092 kg 153.4 kg 152.974 kg GEN: Middle aged woman morbidly obese, CA+O, OOB --> chair on NC, appears comfortable HEENT: NCAT, PERRL, an-icteric, non injected sclera, no exudate PULM: Diffuse B/L fine crackles, diminished in the bases CV: nml S1 S2, RR, unable to appreciate any G/M/R. ABD: Obese, + BS, S/S NN/T N/D X4Q, no guarding EXT: 2+ dorsalis pedis pulses, warm, well-perfused. No calf tenderness. PSYCH: Cooperative. pleasant CBC, BMP 12/26/17 06:10 12/26/17 06:10 Microbiology 12/26/17 12:00 Sputum - Expectorated Gram Stain - Final 12/23/17 23:00 Blood - Peripheral Venous Blood Culture - Preliminary NO GROWTH OBTAINED AFTER 72 HOURS, INCUBATION TO CONTINUE FOR 2 DAYS. 12/23/17 23:00 Blood - Peripheral Venous Blood Culture - Preliminary NO GROWTH OBTAINED AFTER 72 HOURS, INCUBATION TO CONTINUE FOR 2 DAYS. 12/24/17 06:00 Urine - Urine Sahni Urine Culture - Final NO GROWTH OBTAINED 12/24/17 06:00 Urine For Antigen Detection Legionella Antigen - Final 12/24/17 06:00 Urine For Antigen Detection Streptococcus pneumoniae Antigen (M - Final 12/23/17 23:00 Nasopharyngeal Swab Influenza Types A,B Antigen (BRITT) - Final 12/23/17 23:00 Nasopharyngeal Swab - Final CXR 12/26: Since the prior study of 12/25/2017 at 0749 hours, again is a large heart, unfolded aorta, sternal sutures and congestive changes. A basilar infiltrate cannot be excluded. Follow-up recommended. ASSESS: Acute on chronic hypoxic / hypercapneic failure CHF AE of COPD Influenza A PLAN: -NIPPV as needed / VM O2 as tolerated -Nebs -Advair -Medrol -Tamiflu -ABX per ID -Gentle diuresis -ASA -Cozaar -BD TX -Glycemic control -Diabetic Diet -VTE prophylaxis -PPI DGL, ACNP-BC [facility] ICU PULM/CCM 4436 Critical Care Total Critical Care Time (in minutes): 40 Critical Care Statement: The care of this patient involved high complexity decision making to prevent further life threatening deterioration of the patient 's condition and/or to evaluate & treat vital organ system(s) failure or risk of failure.
--- NOTE | 2017-12-27 16:52 | PN ---
Progress Note, Physician Chief Complaint: Currently on O2 via NC Dyspnea intermittently History of Present Illness: Patient was seen and examined in ICU. Awake. Chart was reviewed Patient is in isolation and is on BIPAP - currently on NC O2 - Current Medication List Current Medications: Active Medications Albuterol/Ipratropium (Duoneb -) 1 amp NEB Q4H PRN PRN Reason: SHORTNESS OF BREATH Aspirin (Asa -) 81 mg PO DAILY [facility] Last Admin: 12/27/17 10:39 Dose: 81 mg Chlorhexidine Gluconate (Hibiclens For Decolonization -) 1 applic TP HS [facility] Last Admin: 12/26/17 22:02 Dose: 1 applic Furosemide (Lasix Injection -) 40 mg IVPUSH DAILY [facility] Last Admin: 12/27/17 10:41 Dose: 40 mg Gabapentin (Neurontin -) 300 mg PO HS [facility] Last Admin: 12/26/17 22:02 Dose: 300 mg Heparin Sodium (Porcine) (Heparin -) 5,000 unit SQ TID [facility] Last Admin: 12/27/17 06:31 Dose: 5,000 unit Ertapenem 1 gm/ Sodium (Chloride) 100 mls @ 50 mls/hr IVPB DAILY [facility] PRN Reason: Protocol Last Admin: 12/27/17 10:45 Dose: 50 mls/hr Insulin Aspart (Novolog Vial Sliding Scale -) 1 vial SQ ACHS [facility] PRN Reason: Protocol Last Admin: 12/27/17 10:47 Dose: 8 units Insulin Detemir (Levemir Vial) 24 units SQ BID@0700,2200 [facility] Losartan Potassium (Cozaar -) 100 mg PO DAILY [facility] Last Admin: 12/27/17 10:40 Dose: 100 mg Methylprednisolone Sodium Succinate (Solu-Medrol -) 40 mg IVPUSH Q12H [facility] Last Admin: 12/27/17 06:33 Dose: 40 mg Mupirocin (Bactroban Ointment (For Decolonization) -) 1 applic NS BID [facility] Stop: 12/29/17 09:59 Last Admin: 12/27/17 10:40 Dose: 1 applic Oseltamivir Phosphate (Tamiflu -) 75 mg PO BID [facility] Stop: 12/28/17 10:01 Last Admin: 12/27/17 10:42 Dose: 75 mg Pantoprazole Sodium (Protonix -) 20 mg PO DAILY [facility] Last Admin: 12/27/17 10:41 Dose: 20 mg Saliva Substitute (Mouthkote Solution -) 1 applic MM DAILY [facility] Last Admin: 12/27/17 10:42 Dose: 1 applic Fluticasone/Salmeterol (Advair 100mcg/50mcg -) 1 puff IH BID [facility] Last Admin: 12/27/17 10:39 Dose: 1 inh - Objective Vital Signs: Vital Signs Temperature 98.8 F 12/27/17 06:00 Pulse Rate 90 12/27/17 09:09 Respiratory Rate 20 12/27/17 06:00 Blood Pressure 111/65 12/27/17 06:00 O2 Sat by Pulse Oximetry (%) 92 L 12/27/17 15:17 Eyes: Yes: PERRL HENT: Yes: Atraumatic Neck: Yes: Supple Cardiovascular: Yes: Regular Rate and Rhythm, S1, S2 Respiratory: Yes: Diminished, On BiPap, On Nasal O2 Gastrointestinal: Yes: Normal Bowel Sounds, Soft, Abdomen, Obese. No: Tenderness Edema: No Additional Findings/Remarks: - Review of Systems Constitutional: denies: Chills, Fever Cardiovascular: reports: Shortness of Breath. denies: Chest Pain, Palpitations Respiratory: reports: Cough, SOB, SOB on Exertion. denies: Hemoptysis, Orthopnea, PND Gastrointestinal: denies: Abdominal Pain, Constipation, Diarrhea, Dysphagia, Melena, Nausea, Rectal Bleeding, Vomiting Neurological: denies: Dizziness, Headache, Seizure, Syncope Labs: CBC, BMP 12/26/17 06:10 12/26/17 06:10 INR, PTT INR 1.19 (0.82-1.09) H 12/23/17 23:00 Problem List - Problems (1) Demand ischemia Code(s): I24.8 - OTHER FORMS OF ACUTE ISCHEMIC HEART DISEASE (2) CAD (coronary artery disease) of artery bypass graft Code(s): I25.810 - ATHEROSCLEROSIS OF CABG W/O ANGINA PECTORIS Qualifiers: [place] vs. transplanted heart: [place] heart Associated angina: without angina Qualified Code(s): I25.810 - Atherosclerosis of coronary artery bypass graft(s) without angina pectoris (3) Elevated troponin I level Code(s): R74.8 - ABNORMAL LEVELS OF OTHER SERUM ENZYMES (4) HTN (hypertension) Code(s): I10 - ESSENTIAL (PRIMARY) HYPERTENSION Qualifiers: Hypertension type: essential hypertension Qualified Code(s): I10 - Essential (primary) hypertension (5) Influenza A Code(s): J10.1 - FLU DUE TO OTH IDENT INFLUENZA VIRUS W OTH RESP MANIFEST (6) Morbid obesity with BMI of 50.0-59.9, adult Code(s): E66.01 - MORBID (SEVERE) OBESITY DUE TO EXCESS CALORIES; Z68.43 - BODY MASS INDEX (BMI) 50-59.9 , ADULT (7) Respiratory failure with hypoxia and hypercapnia Code(s): J96.91 - RESPIRATORY FAILURE, UNSPECIFIED WITH HYPOXIA; J96.92 - RESPIRATORY FAILURE, UNSPECIFIED WITH HYPERCAPNIA Qualifiers: Chronicity: acute on chronic Qualified Code(s): J96.21 - Acute and chronic respiratory failure with hypoxia; J96.22 - Acute and chronic respiratory failure with hypercapnia; J96.22 - Acute and chronic respiratory failure with hypercapnia; J96.22 - Acute and chronic respiratory failure with hypercapnia (8) Uncontrolled diabetes mellitus Code(s): E11.65 - TYPE 2 DIABETES MELLITUS WITH HYPERGLYCEMIA Qualifiers: Diabetes mellitus type: type 2 Diabetes mellitus complication status: without complication Diabetes mellitus detention insulin use: without detention use Qualified Code(s): E11.65 - Type 2 diabetes mellitus with hyperglycemia (9) COPD exacerbation Code(s): J44.1 - CHRONIC OBSTRUCTIVE PULMONARY DISEASE W (ACUTE) EXACERBATION (10) Shortness of breath Code(s): R06.02 - SHORTNESS OF BREATH Assessment/Plan 1. Clinical presentation with respiratory failure - (+) Influenza A 2. Coronary artery disease post CABG, angina pectoris - elevated troponin due to demand ischemia 3. LV systolic dysfunction - acute on chronic class II NYHA classification heart failure 4. Hypertension 5. Borderline diabetes mellitus 6. COPD PLAN: 1. Continue BIPAP. Continue Tamiflu and antibiotic support. Continue steroid taper and bronchodilators 2. Further cardiac work up after clinical improvement 3. Continue Losartan as tolerated. Consider Carvedilol when respiratory status improves 4. Continue ASA 81 mg once a day 6. Troponin has come down. Continue supportive care Further plans are to follow Fitz Arboleda MD
[2017-12-27] MEDS: CHLORHEXIDINE GLUCONATE 4% CLEANSER FOR DECOLONIZATION TP SCH (21:52)
[2017-12-27] MEDS: GABAPENTIN 300 MG CAPSULE (FP) PO SCH (21:52)
[2017-12-28] MEDS: HEPARIN NA (PORCINE) 5,000 UNITS/ML 1ML VIAL SQ SCH ×3 (06:41→21:40)
[2017-12-28] MEDS: methylPREDNISolone NA SUCC 40 MG/1 ML VIAL IVPUSH SCH ×2 (06:41→17:16)
[2017-12-28] MEDS: INSULIN DETEMIR 100 UNITS/ML MDV SQ SCH ×2 (06:41→21:39)
[2017-12-28] MEDS: INSULIN SLIDING SCALE (NOVOLOG) 1 VIAL SQ SCH ×4 (06:42→21:39)
--- NOTE | 2017-12-28 07:55 | PN ---
Physical Exam: SUBJECTIVE: Patient seen and examined. Awake and alert, having breakfast. Says she feels better. Still having some cough. On Bipap- ipap-18, Epap-6, 45%, RR-22 OBJECTIVE: Vital Signs Period Temp Pulse Resp BP Sys/Rueda Pulse Ox Last 24 Hr 97.8 F-98.4 F 67-97 16-23 110-127/62-101 91-96 Vital Signs Temp 98.1 F 12/28/17 06:00 Pulse 71 12/28/17 06:00 Resp 18 12/28/17 06:00 BP 127/74 12/28/17 06:00 Pulse Ox 91 L 12/27/17 19:39 Intake & Output 12/25/17 12/26/17 12/27/17 12/28/17 23:59 23:59 23:59 23:59 Intake Total 1400 1940 400 Output Total 3900 5300 600 900 Balance -2500 -3360 -200 -900 Weight 153.4 kg 152.974 kg 151.7 kg GENERAL: The patient is awake, alert, and fully oriented, in no acute distress. HEAD: Normal with no signs of trauma. EYES: PERRL, extraocular movements intact ENT:Bipap-- ipap-18, Epap-6, 45%, RR-22 NECK: supple. LUNGS: Reduced Breath sounds R>L equal HEART: Regular rate and rhythm, S1, S2 ABDOMEN: obese, Soft, nontender, nondistended, normoactive bowel sounds EXTREMITIES: 2+ pulses, warm, well-perfused, bilateral mild pedal edema. NEUROLOGICAL: AAOx3. Normal speech, gait not observed. PSYCH: Normal mood, normal affect. Lines: Bipap, arshadKAMRON peripheral line CBC, BMP 12/28/17 08:10 12/28/17 08:10 ABG Results ABG pH 7.32 (7.35-7.45) L 12/26/17 06:40 ABG pCO2 at Pt Temp 69.8 mmHg (35-45) H* 12/26/17 06:40 ABG pO2 at Pt Temp 70.9 mmHg (80-100) L 12/26/17 06:40 ABG HCO3 35.3 meq/L (22-26) H 12/26/17 06:40 ABG O2 Sat (Measured) 93.7 % (90-98.9) 12/26/17 06:40 ABG O2 Content 15.2 % vol (15-22) 12/26/17 06:40 ABG Base Excess 7.5 meq/l (-2-2) H 12/26/17 06:40 Laboratory Results - last 24 hr 12/25/17 12/27/17 12/27/17 17:21 06:31 10:50 POC Glucometer 214.11796 270.32931 321.08409 12/27/17 12/27/17 17:03 22:00 POC Glucometer 316.15492 330.85212 CXR: b/l infiltrates, with congestion, pulmonary edema. sternotomy wires s/p CABG (2007) ECHO (12/24/17)-global hypokinesis of LV, elevated pulm pressures 30-40mmhg, trace TR Active Medications Generic Name Dose Route Start Last Admin Trade Name Freq PRN Reason Stop Dose Admin Albuterol/Ipratropium 1 amp 12/24/17 04:31 Duoneb - NEB Q4H PRN SHORTNESS OF BREATH Aspirin 81 mg 12/26/17 10:00 12/27/17 10:39 Asa - PO 81 mg DAILY [facility] Administration Chlorhexidine Gluconate 1 applic 12/24/17 22:00 12/27/17 21:52 Hibiclens For Decolonization - TP 1 applic HS [facility] Administration Furosemide 40 mg 12/26/17 10:00 12/27/17 10:41 Lasix Injection - IVPUSH 40 mg DAILY [facility] Administration Gabapentin 300 mg 12/24/17 22:00 12/27/17 21:52 Neurontin - PO 300 mg HS [facility] Administration Heparin Sodium (Porcine) 5,000 unit 12/24/17 06:00 12/28/17 06:41 Heparin - SQ 5,000 unit TID [facility] Administration Ertapenem 1 gm/ Sodium 100 mls @ 50 mls/hr 12/24/17 17:45 12/27/17 10:45 Chloride IVPB 50 mls/hr DAILY [facility] Administration Protocol Insulin Aspart 1 vial 12/24/17 07:00 12/28/17 06:42 Novolog Vial Sliding Scale - SQ 6 units ACHS [facility] Administration Protocol Insulin Detemir 24 units 12/27/17 09:06 12/28/17 06:41 Levemir Vial SQ 24 units BID@0700,2200 [facility] Administration Losartan Potassium 100 mg 12/24/17 10:00 12/27/17 10:40 Cozaar - PO 100 mg DAILY [facility] Administration Methylprednisolone Sodium Succinate 40 mg 12/24/17 05:45 12/28/17 06:41 Solu-Medrol - IVPUSH 40 mg Q12H [facility] Administration Mupirocin 1 applic 12/24/17 10:00 12/27/17 21:51 Bactroban Ointment (For Decolonization) - NS 12/29/17 09:59 1 applic BID [facility] Administration Oseltamivir Phosphate 75 mg 12/24/17 10:00 12/27/17 22:05 Tamiflu - PO 12/28/17 10:01 75 mg BID [facility] Administration Pantoprazole Sodium 20 mg 12/25/17 21:30 12/27/17 10:41 Protonix - PO 20 mg DAILY [facility] Administration Saliva Substitute 1 applic 12/24/17 11:00 12/27/17 10:42 Mouthkote Solution - MM 1 applic DAILY [facility] Administration Fluticasone/Salmeterol 1 puff 12/24/17 10:00 12/27/17 22:01 Advair 100mcg/50mcg - IH 1 inh BID [facility] Administration ASSESSMENT/PLAN: 67 y/o F with PMH COPD (hx exacerbation 2014; not on home oxygen), CHF, CAD s/p CABG (2007), HTN, HLD, NIDDM, who was BIBEMS d/t SOB x 1 day and AMS (passed out in ambulance) and found to be influenza A positive with acute hypoxic respiratory failure Pulm/ID: sepsis 2/2 Flu or PNA-leukocytosis 16.1, tachycardic on arrival 112, RR 32 Acute hypercapnic respiratory failure 2/2 Flu R/O PNA +Flu A , bilat lung infiltrates On UpDTN-aaoc-58, Epap-6, 45%, RR-22 Wean off as tolerated- may need home oxygen On meropenem 1g daily - to be reviewed per Dr Crook-tomorrow pt allergic to PCN - causes rash May also have OHS/OSAS- could benefit from sleep study Isolation precautions- droplet Tamiflu 75 mg PO bid solumedrol 40mg IVP q12h Duonebs 1 amp q4h PRN Advair 1 puff IH BID Cardio: CHF hx- bilateral lung infiltates HTN Lasix 40mg IVP qdaily Daily weights Fluid restriction Strict I's & O's ECHO -global hypokinesis of LV, elevated pulm pressures 30-40mmhg, trace TR Losartan 100mg PO Daily ASA metoprolol held for likely bronchospasm- evaluate for resumption norvasc held- evaluate for resumption Endo: SQ levemir 24U IDDM ISS ACHS BGM Diabetic diet Renal: Hypomagnesemia- resolve Monitor electrolytes and replete as needed Prophylaxis: DVT: Hep SQ 5000 q8h Protonix 20mg daily F/E/N: no fluids needed at this time Monitor electrolytes, and replete as needed Diabetic diet Dispo: transfer to med surg modify Bipap settings as needed Visit type - Emergency Visit Emergency Visit: Yes ED Registration Date: 12/24/17 Care time: The patient presented to the Emergency Department on the above date and was hospitalized for further evaluation of their emergent condition. - New Patient This patient is new to me today: Yes Date on this admission: 12/28/17 - Critical Care Critical Care patient: Yes Total Critical Care Time (in minutes): 40 Critical Care Statement: The care of this patient involved high complexity decision making to prevent further life threatening deterioration of the patient 's condition and/or to evaluate & treat vital organ system(s) failure or risk of failure. - Discharge Referral Referred to [facility] No
[2017-12-28 08:43] LABS: BASO % 0.4 % (0-2.0); EOS % 0.1 % (0-4.5); HEMATOCRIT 40.8 % (32.4-45.2); HEMOGLOBIN 12.7 GM/dL (10.7-15.3); LYMPH % 15.7 % (8-40); MCH 26.7 pg (25.7-33.7); MCHC 31.1 g/dl (32.0-36.0); MEAN CELL VOLUME 85.8 fl (80-96); MEAN PLT VOLUME 7.8 fl (7.5-11.1); MONO % 4.1 % (3.8-10.2); NEUT % 79.7 % (42.8-82.8); PLATELET COUNT 318 K/MM3 (134-434); RBC 4.76 M/mm3 (3.60-5.2); RDW 15.9 % (11.6-15.6); WHITE BLOOD COUNT 12.6 K/mm3 (4.0-10.0)
[2017-12-28] MEDS ORDERED: PT OWN MED DRAWER 7, Y5N ONE ×3 (08:44→09:15)
[2017-12-28 09:10] LABS: ALBUMIN 2.8 g/dl (3.4-5.0); ALK PHOS 63 U/L (45-117); ANION GAP 6 (8-16); BILIRUBIN,TOTAL 0.7 mg/dL (0.2-1.0); BLOOD UREA NITROGEN 22 mg/dL (7-18); CALCIUM 8.3 mg/dL (8.5-10.1); CHLORIDE 95 mmol/L (98-107); CO2 36 mmol/L (21-32); CREATININE 0.7 mg/dL (0.55-1.02); GLUCOSE,RANDOM 200 mg/dL (74-106); POTASSIUM 4.5 mmol/L (3.5-5.1); SGOT/AST 16 U/L (15-37); SGPT/ALT 26 U/L (12-78); SODIUM 137 mmol/L (136-145); TOT PROT 6.9 g/dl (6.4-8.2)
[2017-12-28] MEDS: FUROSEMIDE 40 MG/4 ML INJECTABLE VIAL IVPUSH SCH (09:22)
[2017-12-28] MEDS: OSELTAMIVIR PHOSPHATE 75 MG CAPSULE PO SCH (09:23)
[2017-12-28] MEDS: ASPIRIN 81 MG CHEWABLE TABLETS PO SCH (09:23)
[2017-12-28] MEDS: LOSARTAN POTASSIUM 50 MG TABLET (FP) PO SCH (09:23)
[2017-12-28] MEDS: PANTOPRAZOLE 20 MG TABLET (FP) PO SCH (09:23)
[2017-12-28] MEDS: LYTES/YERBA SANTA 240 ML BOTTLE MM SCH (09:24)
[2017-12-28] MEDS: FLUTICASONE/SALMETEROL 100 MCG/50 MCG DISKUS IH SCH ×2 (09:24→21:38)
[2017-12-28] MEDS: MUPIROCIN 2% TOPICAL OINTMENT FOR DECOLONIZATION NS SCH ×2 (09:26→21:41)
[2017-12-28 09:29] LABS: MAGNESIUM 2.1 mg/dL (1.8-2.4); PHOSPHOROUS 3.5 mg/dL (2.5-4.9)
--- NOTE | 2017-12-28 09:59 | PN ---
Progress Note, Physician History of Present Illness: 67 yrs old F H/O advanced COPD on Home O2 Non Complaint, CAD, HTN, T2DM, present with 1 day H/o worsening SOB< fever and Cough on arrival in mixed Hypoxic and Hypercarbic respiratory failure elevated TWBC , Influenza A a + B/L Pulmonary infiltrate , EKG QTC prolongation recived IV Dexmethasone, nebs, IV Levofloxacin and Tamiflu with BIPAP, Hypoxia improved admitted in ICU for further management. progressing well remained afebrile. - Current Medication List Current Medications: Active Medications Albuterol/Ipratropium (Duoneb -) 1 amp NEB Q4H PRN PRN Reason: SHORTNESS OF BREATH Aspirin (Asa -) 81 mg PO DAILY [facility] Last Admin: 12/28/17 09:23 Dose: 81 mg Chlorhexidine Gluconate (Hibiclens For Decolonization -) 1 applic TP HS [facility] Last Admin: 12/27/17 21:52 Dose: 1 applic Furosemide (Lasix Injection -) 40 mg IVPUSH DAILY [facility] Last Admin: 12/28/17 09:22 Dose: 40 mg Gabapentin (Neurontin -) 300 mg PO HS [facility] Last Admin: 12/27/17 21:52 Dose: 300 mg Heparin Sodium (Porcine) (Heparin -) 5,000 unit SQ TID [facility] Last Admin: 12/28/17 06:41 Dose: 5,000 unit Ertapenem 1 gm/ Sodium (Chloride) 100 mls @ 50 mls/hr IVPB DAILY [facility] PRN Reason: Protocol Last Admin: 12/27/17 10:45 Dose: 50 mls/hr Insulin Aspart (Novolog Vial Sliding Scale -) 1 vial SQ ACHS [facility] PRN Reason: Protocol Last Admin: 12/28/17 06:42 Dose: 6 units Insulin Detemir (Levemir Vial) 24 units SQ BID@0700,2200 [facility] Last Admin: 12/28/17 06:41 Dose: 24 units Losartan Potassium (Cozaar -) 100 mg PO DAILY [facility] Last Admin: 12/28/17 09:23 Dose: 100 mg Methylprednisolone Sodium Succinate (Solu-Medrol -) 40 mg IVPUSH Q12H [facility] Last Admin: 12/28/17 06:41 Dose: 40 mg Mupirocin (Bactroban Ointment (For Decolonization) -) 1 applic NS BID [facility] Stop: 12/29/17 09:59 Last Admin: 12/28/17 09:26 Dose: 1 applic Oseltamivir Phosphate (Tamiflu -) 75 mg PO BID [facility] Stop: 12/28/17 10:01 Last Admin: 12/28/17 09:23 Dose: 75 mg Pantoprazole Sodium (Protonix -) 20 mg PO DAILY [facility] Last Admin: 12/28/17 09:23 Dose: 20 mg Saliva Substitute (Mouthkote Solution -) 1 applic MM DAILY [facility] Last Admin: 12/28/17 09:24 Dose: 1 applic Fluticasone/Salmeterol (Advair 100mcg/50mcg -) 1 puff IH BID [facility] Last Admin: 12/28/17 09:24 Dose: 1 inh - Objective Vital Signs: Vital Signs Temperature 98.1 F 12/28/17 06:00 Pulse Rate 81 12/28/17 09:10 Respiratory Rate 18 12/28/17 08:00 Blood Pressure 135/62 12/28/17 08:00 O2 Sat by Pulse Oximetry (%) 98 12/28/17 09:10 Elderly F not in acute distress, HEENT: MM dry. mild anemia, PERRLA EOMI NECK; No JVd , No Bruit CHEST: B/L Diffuse wheezes CVS: S1S2 R no m/g/r ABD: Obese, no distention, non tender Bs + EXT: + edema feet, no calf tenderness, no assumetry B/L Knee Pain. Pulses + PERSONAL ATTENDANT: AOx3 non focal Labs: CBC, BMP 12/28/17 08:10 12/28/17 08:10 INR, PTT INR 1.19 (0.82-1.09) H 12/23/17 23:00 Problem List - Problems (1) Respiratory failure with hypoxia and hypercapnia Assessment/Plan: Know case of COPD non compliant with Home O2 present with Respiratory acidosis with Hypoxia nd Hypecarbia with fever , Influenza A +, ? B/L LL Infitrates on IV abx improving, uesterday put on Nasal canula. Code(s): J96.91 - RESPIRATORY FAILURE, UNSPECIFIED WITH HYPOXIA; J96.92 - RESPIRATORY FAILURE, UNSPECIFIED WITH HYPERCAPNIA Qualifiers: Qualified Code(s): J96.21 - Acute and chronic respiratory failure with hypoxia; J96.22 - Acute and chronic respiratory failure with hypercapnia; J96.22 - Acute and chronic respiratory failure with hypercapnia; J96.22 - Acute and chronic respiratory failure with hypercapnia (2) Chronic obstructive pulmonary disease with (acute) exacerbation Assessment/Plan: Present with COPD exacerbation, Cont Nebs IV abx and Respiratory management BIPAP as per Pulmonary Critical care consult Code(s): J44.1 - CHRONIC OBSTRUCTIVE PULMONARY DISEASE W (ACUTE) EXACERBATION (3) Influenza A Assessment/Plan: On tamiflu Code(s): J10.1 - FLU DUE TO OTH IDENT INFLUENZA VIRUS W OTH RESP MANIFEST (4) Pneumonia Assessment/Plan: 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 Code(s): J18.9 - PNEUMONIA, UNSPECIFIED ORGANISM (5) CHF exacerbation Assessment/Plan: CpOmfortable less respiratory distress Code(s): I50.9 - HEART FAILURE, UNSPECIFIED (6) Uncontrolled diabetes mellitus Assessment/Plan: Hb A!C > 9 FS are poorly controlled increse Levimir dose to 24 BID Code(s): E11.65 - TYPE 2 DIABETES MELLITUS WITH HYPERGLYCEMIA Qualifiers: Qualified Code(s): E11.65 - Type 2 diabetes mellitus with hyperglycemia (7) HTN (hypertension) Assessment/Plan: Cont Home medication Code(s): I10 - ESSENTIAL (PRIMARY) HYPERTENSION Qualifiers: Qualified Code(s): I10 - Essential (primary) hypertension (8) Morbid obesity with BMI of 50.0-59.9, adult Assessment/Plan: Nutritional consult as out patient Code(s): E66.01 - MORBID (SEVERE) OBESITY DUE TO EXCESS CALORIES; Z68.43 - BODY MASS INDEX (BMI) 50-59.9 , ADULT (9) CAD (coronary artery disease) of artery bypass graft Assessment/Plan: No C/O chest pain mildly elevated troponin I . ,most like;y Demand ischemia Code(s): I25.810 - ATHEROSCLEROSIS OF CABG W/O ANGINA PECTORIS Qualifiers: Qualified Code(s): I25.810 - Atherosclerosis of coronary artery bypass graft( s) without angina pectoris (10) Elevated troponin I level Assessment/Plan: Elevated trop I no acute St T changes no chest pain most likely Demand ischemia , cardiology input appreciated Code(s): R74.8 - ABNORMAL LEVELS OF OTHER SERUM ENZYMES
[2017-12-28] MEDS: ERTAPENEM SODIUM 1 GM in SODIUM CHLORIDE 100 ML IVPB SCH (11:04)
--- NOTE | 2017-12-28 11:27 | PN ---
Progress Note, Physician History of Present Illness: Productive cough, dyspnea slowly improving, now OOB in chair. - Current Medication List Current Medications: Active Medications Albuterol/Ipratropium (Duoneb -) 1 amp NEB Q4H PRN PRN Reason: SHORTNESS OF BREATH Aspirin (Asa -) 81 mg PO DAILY [facility] Last Admin: 12/28/17 09:23 Dose: 81 mg Chlorhexidine Gluconate (Hibiclens For Decolonization -) 1 applic TP HS [facility] Last Admin: 12/27/17 21:52 Dose: 1 applic Furosemide (Lasix Injection -) 40 mg IVPUSH DAILY [facility] Last Admin: 12/28/17 09:22 Dose: 40 mg Gabapentin (Neurontin -) 300 mg PO HS [facility] Last Admin: 12/27/17 21:52 Dose: 300 mg Heparin Sodium (Porcine) (Heparin -) 5,000 unit SQ TID [facility] Last Admin: 12/28/17 06:41 Dose: 5,000 unit Ertapenem 1 gm/ Sodium (Chloride) 100 mls @ 50 mls/hr IVPB DAILY [facility] PRN Reason: Protocol Last Admin: 12/28/17 11:04 Dose: 50 mls/hr Insulin Aspart (Novolog Vial Sliding Scale -) 1 vial SQ ACHS [facility] PRN Reason: Protocol Last Admin: 12/28/17 06:42 Dose: 6 units Insulin Detemir (Levemir Vial) 24 units SQ BID@0700,2200 [facility] Last Admin: 12/28/17 06:41 Dose: 24 units Losartan Potassium (Cozaar -) 100 mg PO DAILY [facility] Last Admin: 12/28/17 09:23 Dose: 100 mg Methylprednisolone Sodium Succinate (Solu-Medrol -) 40 mg IVPUSH Q12H [facility] Last Admin: 12/28/17 06:41 Dose: 40 mg Mupirocin (Bactroban Ointment (For Decolonization) -) 1 applic NS BID [facility] Stop: 12/29/17 09:59 Last Admin: 12/28/17 09:26 Dose: 1 applic Pantoprazole Sodium (Protonix -) 20 mg PO DAILY [facility] Last Admin: 12/28/17 09:23 Dose: 20 mg Saliva Substitute (Mouthkote Solution -) 1 applic MM DAILY [facility] Last Admin: 12/28/17 09:24 Dose: 1 applic Fluticasone/Salmeterol (Advair 100mcg/50mcg -) 1 puff IH BID [facility] Last Admin: 12/28/17 09:24 Dose: 1 inh - Objective Vital Signs: Vital Signs Temperature 98.1 F 12/28/17 06:00 Pulse Rate 93 H 12/28/17 10:00 Respiratory Rate 18 12/28/17 10:00 Blood Pressure 125/76 12/28/17 10:00 O2 Sat by Pulse Oximetry (%) 96 12/28/17 10:00 Constitutional: Yes: No Distress, Calm Neck: Yes: Supple Cardiovascular: Yes: Regular Rate and Rhythm Respiratory: Yes: Regular, Diminished, On Nasal O2 Gastrointestinal: Yes: Normal Bowel Sounds, Soft, Abdomen, Obese Edema: No Labs: CBC, BMP 12/28/17 08:10 12/28/17 08:10 INR, PTT INR 1.19 (0.82-1.09) H 12/23/17 23:00 - ....Imaging Chest X-ray: Report Reviewed (Improved congestion) Problem List - Problems (1) CAD (coronary artery disease) of artery bypass graft Code(s): I25.810 - ATHEROSCLEROSIS OF CABG W/O ANGINA PECTORIS Qualifiers: [place] vs. transplanted heart: [place] heart Associated angina: without angina Qualified Code(s): I25.810 - Atherosclerosis of coronary artery bypass graft(s) without angina pectoris (2) Chronic obstructive pulmonary disease with (acute) exacerbation Code(s): J44.1 - CHRONIC OBSTRUCTIVE PULMONARY DISEASE W (ACUTE) EXACERBATION (3) Demand ischemia Code(s): I24.8 - OTHER FORMS OF ACUTE ISCHEMIC HEART DISEASE (4) HTN (hypertension) Code(s): I10 - ESSENTIAL (PRIMARY) HYPERTENSION Qualifiers: Hypertension type: essential hypertension Qualified Code(s): I10 - Essential (primary) hypertension (5) Influenza A Code(s): J10.1 - FLU DUE TO OTH IDENT INFLUENZA VIRUS W OTH RESP MANIFEST (6) Morbid obesity with BMI of 50.0-59.9, adult Code(s): E66.01 - MORBID (SEVERE) OBESITY DUE TO EXCESS CALORIES; Z68.43 - BODY MASS INDEX (BMI) 50-59.9 , ADULT (7) Pneumonia Code(s): J18.9 - PNEUMONIA, UNSPECIFIED ORGANISM Qualifiers: Pneumonia type: due to unspecified organism (8) Respiratory failure with hypoxia and hypercapnia Code(s): J96.91 - RESPIRATORY FAILURE, UNSPECIFIED WITH HYPOXIA; J96.92 - RESPIRATORY FAILURE, UNSPECIFIED WITH HYPERCAPNIA Qualifiers: Chronicity: acute on chronic Qualified Code(s): J96.21 - Acute and chronic respiratory failure with hypoxia; J96.22 - Acute and chronic respiratory failure with hypercapnia; J96.22 - Acute and chronic respiratory failure with hypercapnia; J96.22 - Acute and chronic respiratory failure with hypercapnia (9) Systolic dysfunction, left ventricle Code(s): I51.9 - HEART DISEASE, UNSPECIFIED Assessment/Plan 12/24/2017 Transthoracic echocardiography: Normal LV size with moderate decreased LV fxn, tr TR 1. Acute on chronic hypercapneic/hypoxemic respiratory failure - AE COPD, (+) Influenza A improving 2. Coronary artery disease post CABG, angina pectoris - elevated troponin due to demand ischemia 3. LV systolic dysfunction - acute on chronic class II NYHA classification heart failure resolving 4. Hypertension 5. Diabetes mellitus 6. OSAS/OHS suspect PLAN: 1. Continue BIPAP nightly as needed. Continue Tamiflu, abx course, IV steroid taper with GI protection and bronchodilators as needed 2. Further cardiac work up including nuclear myocardial perfusion can be done as outpatient. 3. Continue ASA 81 qd, Losartan 100 qd. Consider Carvedilol 3.125 mg BID when respiratory status improves, change Lasix to Aldactone 25 qd 4. DVT and GI prophylaxis 5. PSG as outpatient to confirm OSAS
--- NOTE | 2017-12-28 12:23 | PN ---
Teaching Attending Note Name of Resident: Natasha Tanner ATTENDING PHYSICIAN STATEMENT I saw and evaluated the patient. I reviewed the resident's note and discussed the case with the resident. I agree with the resident's findings and plan as documented. SUBJECTIVE: Pt seen and examined in the ICU. Breathing better today but still on BiPAP at night. +cough and wheezing. No fevers recorded. OBJECTIVE: Last Vital Signs Temp Pulse Resp BP Pulse Ox 98.1 F 93 H 18 125/76 96 12/28/17 06:00 12/28/17 10:00 12/28/17 10:00 12/28/17 10:00 12/28/17 10:00 Intake & Output 12/25/17 12/26/17 12/27/17 12/28/17 23:59 23:59 23:59 23:59 Intake Total 1400 1940 400 Output Total 3900 5300 600 900 Balance -2500 -3360 -200 -900 Weight 153.4 kg 152.974 kg 151.7 kg Gen: tachypneic with speaking Heart: RRR Lung: scattered rhonchi, wheezes Abd: soft, nontender Ext: no edema CBC, BMP 12/28/17 08:10 12/28/17 08:10 Active Medications Albuterol/Ipratropium (Duoneb -) 1 amp NEB Q4H PRN PRN Reason: SHORTNESS OF BREATH Aspirin (Asa -) 81 mg PO DAILY [facility] Last Admin: 12/28/17 09:23 Dose: 81 mg Carvedilol (Coreg -) 3.125 mg PO BID [facility] Chlorhexidine Gluconate (Hibiclens For Decolonization -) 1 applic TP HS [facility] Last Admin: 12/27/17 21:52 Dose: 1 applic Gabapentin (Neurontin -) 300 mg PO HS [facility] Last Admin: 12/27/17 21:52 Dose: 300 mg Heparin Sodium (Porcine) (Heparin -) 5,000 unit SQ TID [facility] Last Admin: 12/28/17 06:41 Dose: 5,000 unit Ertapenem 1 gm/ Sodium (Chloride) 100 mls @ 50 mls/hr IVPB DAILY [facility] PRN Reason: Protocol Last Admin: 12/28/17 11:04 Dose: 50 mls/hr Insulin Aspart (Novolog Vial Sliding Scale -) 1 vial SQ ACHS [facility] PRN Reason: Protocol Last Admin: 12/28/17 11:55 Dose: 10 units Insulin Detemir (Levemir Vial) 24 units SQ BID@0700,2200 [facility] Last Admin: 12/28/17 06:41 Dose: 24 units Losartan Potassium (Cozaar -) 100 mg PO DAILY [facility] Last Admin: 12/28/17 09:23 Dose: 100 mg Methylprednisolone Sodium Succinate (Solu-Medrol -) 40 mg IVPUSH Q12H [facility] Last Admin: 12/28/17 06:41 Dose: 40 mg Mupirocin (Bactroban Ointment (For Decolonization) -) 1 applic NS BID [facility] Stop: 12/29/17 09:59 Last Admin: 12/28/17 09:26 Dose: 1 applic Pantoprazole Sodium (Protonix -) 20 mg PO DAILY [facility] Last Admin: 12/28/17 09:23 Dose: 20 mg Saliva Substitute (Mouthkote Solution -) 1 applic MM DAILY [facility] Last Admin: 12/28/17 09:24 Dose: 1 applic Fluticasone/Salmeterol (Advair 100mcg/50mcg -) 1 puff IH BID [facility] Last Admin: 12/28/17 09:24 Dose: 1 inh Spironolactone (Aldactone -) 25 mg PO DAILY [facility] ASSESSMENT AND PLAN: Acute on Chronic Hypoxic and Hypercapneic Respiratory Failure Influenza A Acute COPD Exacerbation CAD s/p CABG +Troponins likely Demand Ischemia Acute on Chronic Systolic Heart Failure HTN DM Likely VIOLET/OHS - antibiotics, tamiflu per ID - continue medrol at current dose - inhaled bronchodilators standing and PRN - BiPAP at night and PRN during day - O2 to keep SpO2 >90% - beta fabiola, ARB - outpt PFTs and PSG - can monitor on floor critical care time spent in reviewing chart, evaluating patient and formulating plan 35 min
--- NOTE | 2017-12-28 13:05 | PN ---
Progress Note, Physician History of Present Illness: stable feels much better on nasal canula - Current Medication List Current Medications: Active Medications Albuterol/Ipratropium (Duoneb -) 1 amp NEB Q4H PRN PRN Reason: SHORTNESS OF BREATH Aspirin (Asa -) 81 mg PO DAILY [facility] Last Admin: 12/28/17 09:23 Dose: 81 mg Carvedilol (Coreg -) 3.125 mg PO BID [facility] Chlorhexidine Gluconate (Hibiclens For Decolonization -) 1 applic TP HS [facility] Last Admin: 12/27/17 21:52 Dose: 1 applic Gabapentin (Neurontin -) 300 mg PO HS [facility] Last Admin: 12/27/17 21:52 Dose: 300 mg Heparin Sodium (Porcine) (Heparin -) 5,000 unit SQ TID [facility] Last Admin: 12/28/17 06:41 Dose: 5,000 unit Ertapenem 1 gm/ Sodium (Chloride) 100 mls @ 50 mls/hr IVPB DAILY [facility] PRN Reason: Protocol Last Admin: 12/28/17 11:04 Dose: 50 mls/hr Insulin Aspart (Novolog Vial Sliding Scale -) 1 vial SQ ACHS [facility] PRN Reason: Protocol Last Admin: 12/28/17 11:55 Dose: 10 units Insulin Detemir (Levemir Vial) 24 units SQ BID@0700,2200 [facility] Last Admin: 12/28/17 06:41 Dose: 24 units Losartan Potassium (Cozaar -) 100 mg PO DAILY [facility] Last Admin: 12/28/17 09:23 Dose: 100 mg Methylprednisolone Sodium Succinate (Solu-Medrol -) 40 mg IVPUSH Q12H [facility] Last Admin: 12/28/17 06:41 Dose: 40 mg Mupirocin (Bactroban Ointment (For Decolonization) -) 1 applic NS BID [facility] Stop: 12/29/17 09:59 Last Admin: 12/28/17 09:26 Dose: 1 applic Pantoprazole Sodium (Protonix -) 20 mg PO DAILY [facility] Last Admin: 12/28/17 09:23 Dose: 20 mg Saliva Substitute (Mouthkote Solution -) 1 applic MM DAILY [facility] Last Admin: 12/28/17 09:24 Dose: 1 applic Fluticasone/Salmeterol (Advair 100mcg/50mcg -) 1 puff IH BID [facility] Last Admin: 12/28/17 09:24 Dose: 1 inh Spironolactone (Aldactone -) 25 mg PO DAILY [facility] - Objective Vital Signs: Vital Signs Temperature 97.8 F 12/28/17 12:00 Pulse Rate 100 H 12/28/17 12:00 Respiratory Rate 18 12/28/17 12:00 Blood Pressure 137/88 12/28/17 12:00 O2 Sat by Pulse Oximetry (%) 96 12/28/17 10:00 Constitutional: Yes: No Distress, Calm, Obese Cardiovascular: Yes: Regular Rate and Rhythm Respiratory: Yes: Regular, Poor Air Entry Gastrointestinal: Yes: Normal Bowel Sounds, Soft Musculoskeletal: Yes: WNL Extremities: Yes: WNL Neurological: Yes: Alert, Oriented Psychiatric: Yes: Alert, Oriented Labs: CBC, BMP 12/28/17 08:10 12/28/17 08:10 INR, PTT INR 1.19 (0.82-1.09) H 12/23/17 23:00 - ....Imaging Chest X-ray: Report Reviewed, Image Reviewed Assessment/Plan Problem List - Problems (1) Demand ischemia Code(s): I24.8 - OTHER FORMS OF ACUTE ISCHEMIC HEART DISEASE (2) CAD (coronary artery disease) of artery bypass graft Code(s): I25.810 - ATHEROSCLEROSIS OF CABG W/O ANGINA PECTORIS Qualifiers: [place] vs. transplanted heart: [place] heart Associated angina: without angina Qualified Code(s): I25.810 - Atherosclerosis of coronary artery bypass graft(s) without angina pectoris (3) Elevated troponin I level Code(s): R74.8 - ABNORMAL LEVELS OF OTHER SERUM ENZYMES (4) HTN (hypertension) Code(s): I10 - ESSENTIAL (PRIMARY) HYPERTENSION Qualifiers: Hypertension type: essential hypertension Qualified Code(s): I10 - Essential (primary) hypertension (5) Influenza A Code(s): J10.1 - FLU DUE TO OTH IDENT INFLUENZA VIRUS W OTH RESP MANIFEST (6) Morbid obesity with BMI of 50.0-59.9, adult Code(s): E66.01 - MORBID (SEVERE) OBESITY DUE TO EXCESS CALORIES; Z68.43 - BODY MASS INDEX (BMI) 50-59.9 , ADULT (7) Respiratory failure with hypoxia and hypercapnia Code(s): J96.91 - RESPIRATORY FAILURE, UNSPECIFIED WITH HYPOXIA; J96.92 - RESPIRATORY FAILURE, UNSPECIFIED WITH HYPERCAPNIA Qualifiers: Chronicity: acute on chronic Qualified Code(s): J96.21 - Acute and chronic respiratory failure with hypoxia; J96.22 - Acute and chronic respiratory failure with hypercapnia; J96.22 - Acute and chronic respiratory failure with hypercapnia; J96.22 - Acute and chronic respiratory failure with hypercapnia (8) Uncontrolled diabetes mellitus Code(s): E11.65 - TYPE 2 DIABETES MELLITUS WITH HYPERGLYCEMIA Qualifiers: Diabetes mellitus type: type 2 Diabetes mellitus complication status: without complication 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
[2017-12-28] MEDS ORDERED: FLU VACCINE QUAD 60 MCG/0.5 ML (MDV 17-18) IM ONE (19:20)
[2017-12-28] MEDS ORDERED: PNEUMOC 13-VAL CONJ-DIP CRM/PF 0.5 ML DISP.SYRIN IM ONE (19:20)
[2017-12-28] MEDS: GABAPENTIN 300 MG CAPSULE (FP) PO SCH (21:40)
[2017-12-28] MEDS: CHLORHEXIDINE GLUCONATE 4% CLEANSER FOR DECOLONIZATION TP SCH (21:40)
[2017-12-28] MEDS ORDERED: CARVEDILOL 3.125 MG TABLET (FP) PO SCH (22:00)
[2017-12-29] MEDS ORDERED: ALBUTEROL SO4 2.5/IPRATROPIUM 0.5 INH SOL 3 ML VIAL.NEB. NEB PRN (05:00)
[2017-12-29] MEDS: HEPARIN NA (PORCINE) 5,000 UNITS/ML 1ML VIAL SQ SCH ×3 (06:40→21:47)
[2017-12-29] MEDS: methylPREDNISolone NA SUCC 40 MG/1 ML VIAL IVPUSH SCH ×2 (06:40→17:48)
[2017-12-29] MEDS: INSULIN SLIDING SCALE (NOVOLOG) 1 VIAL SQ SCH ×4 (06:41→21:48)
[2017-12-29] MEDS ORDERED: INSULIN DETEMIR 100 UNITS/ML MDV SQ SCH (07:00)
[2017-12-29 08:21] LABS: BASO % 0.4 % (0-2.0); HEMATOCRIT 41.2 % (32.4-45.2); LYMPH % 15.6 % (8-40); MCH 26.8 pg (25.7-33.7); MCHC 31.6 g/dl (32.0-36.0); MEAN CELL VOLUME 84.8 fl (80-96); MEAN PLT VOLUME 8.1 fl (7.5-11.1); MONO % 4.2 % (3.8-10.2); NEUT % 79.8 % (42.8-82.8); PLATELET COUNT 356 K/MM3 (134-434); RBC 4.86 M/mm3 (3.60-5.2); RDW 16.1 % (11.6-15.6); WHITE BLOOD COUNT 14.6 K/mm3 (4.0-10.0)
[2017-12-29 08:27] LABS: BLOOD UREA NITROGEN 25 mg/dL (7-18); CHLORIDE 95 mmol/L (98-107); GLUCOSE,RANDOM 201 mg/dL (74-106); POTASSIUM 4.3 mmol/L (3.5-5.1); SODIUM 136 mmol/L (136-145)
[2017-12-29 08:33] LABS: ALK PHOS 60 U/L (45-117); ANION GAP 5 (8-16); CALCIUM 8.6 mg/dL (8.5-10.1); CO2 36 mmol/L (21-32); CREATININE 0.7 mg/dL (0.55-1.02); MAGNESIUM 2.1 mg/dL (1.8-2.4); PHOSPHOROUS 3.7 mg/dL (2.5-4.9); SGOT/AST 17 U/L (15-37); SGPT/ALT 27 U/L (12-78)
[2017-12-29] MEDS ORDERED: PT OWN MED DRAWER 7, Y5N ONE (09:24)
[2017-12-29] MEDS: FLUTICASONE/SALMETEROL 100 MCG/50 MCG DISKUS IH SCH ×2 (09:55→21:47)
[2017-12-29] MEDS: SPIRONOLACTONE 25 MG TABLET (FP) PO SCH (09:55)
[2017-12-29] MEDS: ASPIRIN 81 MG CHEWABLE TABLETS PO SCH (09:56)
[2017-12-29] MEDS: CARVEDILOL 3.125 MG TABLET (FP) PO SCH ×2 (09:56→21:47)
[2017-12-29] MEDS: LOSARTAN POTASSIUM 50 MG TABLET (FP) PO SCH (09:56)
[2017-12-29] MEDS: PANTOPRAZOLE 20 MG TABLET (FP) PO SCH (09:57)
[2017-12-29] MEDS: LYTES/YERBA SANTA 240 ML BOTTLE MM SCH (09:59)
[2017-12-29] MEDS ORDERED: SPIRONOLACTONE 25 MG TABLET (FP) PO SCH (10:00)
[2017-12-29] MEDS ORDERED: ERTAPENEM SODIUM 1 GM in SODIUM CHLORIDE 100 ML IVPB SCH (10:00)
--- NOTE | 2017-12-29 12:42 | PN ---
Progress Note (short form) - Note Progress Note: Feels better, but was very SOB after ambulating from the BR and needed to go on NIPPV for about 20 minutes. Now on NC O2, and feels OK. No CP. Intake & Output 12/26/17 12/27/17 12/28/17 12/29/17 23:59 23:59 23:59 23:59 Intake Total 1940 400 900 300 Output Total 5300 600 4950 Balance -3360 -200 -4050 300 Weight 337 lb 4 oz 334 lb 7.06 oz 327 lb 8 oz Last Vital Signs Temp Pulse Resp BP Pulse Ox 97.2 F L 72 20 145/65 90 L 12/29/17 05:57 12/29/17 05:57 12/29/17 09:00 12/29/17 05:57 12/29/17 09:00 Active Medications Albuterol/Ipratropium (Duoneb -) 1 amp NEB Q4H PRN PRN Reason: SHORTNESS OF BREATH Aspirin (Asa -) 81 mg PO DAILY [facility] Last Admin: 12/29/17 09:56 Dose: 81 mg Carvedilol (Coreg -) 3.125 mg PO BID [facility] Last Admin: 12/29/17 09:56 Dose: 3.125 mg Gabapentin (Neurontin -) 300 mg PO HS [facility] Heparin Sodium (Porcine) (Heparin -) 5,000 unit SQ TID [facility] Last Admin: 12/29/17 06:40 Dose: 5,000 unit Ertapenem 1 gm/ Sodium (Chloride) 100 mls @ 50 mls/hr IVPB DAILY [facility] PRN Reason: Protocol Last Admin: 12/29/17 09:57 Dose: 50 mls/hr Insulin Aspart (Novolog Vial Sliding Scale -) 1 vial SQ ACHS [facility] PRN Reason: Protocol Last Admin: 12/29/17 11:54 Dose: 4 units Insulin Detemir (Levemir Vial) 24 units SQ BID@0700,2200 [facility] Last Admin: 12/29/17 06:40 Dose: 24 units Losartan Potassium (Cozaar -) 100 mg PO DAILY [facility] Last Admin: 12/29/17 09:56 Dose: 100 mg Methylprednisolone Sodium Succinate (Solu-Medrol -) 40 mg IVPUSH BID@0600,1800 [facility] Last Admin: 12/29/17 06:40 Dose: 40 mg Pantoprazole Sodium (Protonix -) 20 mg PO DAILY [facility] Last Admin: 12/29/17 09:57 Dose: 20 mg Saliva Substitute (Mouthkote Solution -) 1 applic MM DAILY [facility] Last Admin: 12/29/17 09:59 Dose: 1 applic Fluticasone/Salmeterol (Advair 100mcg/50mcg -) 1 puff IH BID [facility] Last Admin: 12/29/17 09:55 Dose: 1 puff Spironolactone (Aldactone -) 25 mg PO DAILY [facility] Last Admin: 12/29/17 09:55 Dose: 25 mg GENERAL: Awake and alert on NC O2 HEAD: NCAT EYES: PERRL, EOMI, non injected sclera, no exudate EARS, NOSE, THROAT: NECK: Normal range of motion, supple without lymphadenopathy LUNGS: scattered crackles, diminished bases HEART: Regular rate and rhythm, normal S1 and S2 without murmur, rub or gallop. ABDOMEN: Soft, obese nontender, not distended, normoactive bowel sounds, no guarding LOWER EXTREMITIES: 2+ dorsalis pedis pulses, warm, well-perfused. No calf tenderness. 1+ dependent edema NEUROLOGICAL: Non-focal PSYCHIATRIC: Cooperative Laboratory Results - last 24 hr 12/28/17 12/28/17 12/29/17 17:03 21:20 05:50 WBC RBC Hgb Hct MCV MCH MCHC RDW Plt Count MPV Neutrophils % Lymphocytes % Monocytes % Eosinophils % Basophils % Sodium Potassium Chloride Carbon Dioxide Anion Gap BUN Creatinine Creat Clearance w eGFR POC Glucometer [phone] 229 Random Glucose Calcium Phosphorus Magnesium Total Bilirubin AST ALT Alkaline Phosphatase Total Protein Albumin 12/29/17 12/29/17 12/29/17 06:00 06:00 11:51 WBC 14.6 H RBC 4.86 Hgb 13.0 Hct 41.2 MCV 84.8 MCH 26.8 MCHC 31.6 L RDW 16.1 H Plt Count 356 MPV 8.1 Neutrophils % 79.8 Lymphocytes % 15.6 Monocytes % 4.2 Eosinophils % 0.0 D Basophils % 0.4 Sodium 136 Potassium 4.3 Chloride 95 L Carbon Dioxide 36 H Anion Gap 5 L BUN 25 H Creatinine 0.7 Creat Clearance w eGFR > 60 POC Glucometer 205 Random Glucose 201 H Calcium 8.6 Phosphorus 3.7 Magnesium 2.1 Total Bilirubin 1.0 D AST 17 ALT 27 Alkaline Phosphatase 60 Total Protein 7.0 Albumin 3.0 L IMP: Acute on chronic hypoxic / hypercapneic failure CHF AE of COPD Influenza A PLAN: -NIPPV as needed (settings adjusted) / NC O2 as tolerated -Tamiflu -ABX per ID -Lasix -BD TX -Medrol -Glycemic control -VTE prophylaxis Dr Hollins
--- NOTE | 2017-12-29 12:49 | PN ---
Progress Note, Physician History of Present Illness: doing well no complaints - Current Medication List Current Medications: Active Medications Albuterol/Ipratropium (Duoneb -) 1 amp NEB Q4H PRN PRN Reason: SHORTNESS OF BREATH Aspirin (Asa -) 81 mg PO DAILY [facility] Last Admin: 12/29/17 09:56 Dose: 81 mg Carvedilol (Coreg -) 3.125 mg PO BID [facility] Last Admin: 12/29/17 09:56 Dose: 3.125 mg Gabapentin (Neurontin -) 300 mg PO HS [facility] Heparin Sodium (Porcine) (Heparin -) 5,000 unit SQ TID [facility] Last Admin: 12/29/17 06:40 Dose: 5,000 unit Insulin Aspart (Novolog Vial Sliding Scale -) 1 vial SQ ACHS COUNT [facility] PRN Reason: Protocol Last Admin: 12/29/17 11:54 Dose: 4 units Insulin Detemir (Levemir Vial) 24 units SQ BID@0700,2200 [facility] Last Admin: 12/29/17 06:40 Dose: 24 units Losartan Potassium (Cozaar -) 100 mg PO DAILY [facility] Last Admin: 12/29/17 09:56 Dose: 100 mg Methylprednisolone Sodium Succinate (Solu-Medrol -) 40 mg IVPUSH BID@0600,1800 [facility] Last Admin: 12/29/17 06:40 Dose: 40 mg Pantoprazole Sodium (Protonix -) 20 mg PO DAILY [facility] Last Admin: 12/29/17 09:57 Dose: 20 mg Saliva Substitute (Mouthkote Solution -) 1 applic MM DAILY [facility] Last Admin: 12/29/17 09:59 Dose: 1 applic Fluticasone/Salmeterol (Advair 100mcg/50mcg -) 1 puff IH BID [facility] Last Admin: 12/29/17 09:55 Dose: 1 puff Spironolactone (Aldactone -) 25 mg PO DAILY [facility] Last Admin: 12/29/17 09:55 Dose: 25 mg - Objective Vital Signs: Vital Signs Temperature 97.2 F L 12/29/17 05:57 Pulse Rate 72 12/29/17 05:57 Respiratory Rate 20 12/29/17 09:00 Blood Pressure 145/65 12/29/17 05:57 O2 Sat by Pulse Oximetry (%) 90 L 12/29/17 09:00 Constitutional: Yes: No Distress, Calm, Obese Neck: Yes: Supple, Trachea Midline Cardiovascular: Yes: Regular Rate and Rhythm Respiratory: Yes: Regular, CTA Bilaterally Gastrointestinal: Yes: Normal Bowel Sounds, Soft Musculoskeletal: Yes: WNL Extremities: Yes: WNL Neurological: Yes: Alert, Oriented Psychiatric: Yes: Alert, Oriented Labs: CBC, BMP 12/29/17 06:00 12/29/17 06:00 INR, PTT INR 1.19 (0.82-1.09) H 12/23/17 23:00 Assessment/Plan Problem List - Problems (1) Demand ischemia Code(s): I24.8 - OTHER FORMS OF ACUTE ISCHEMIC HEART DISEASE (2) CAD (coronary artery disease) of artery bypass graft Code(s): I25.810 - ATHEROSCLEROSIS OF CABG W/O ANGINA PECTORIS Qualifiers: [place] vs. transplanted heart: [place] heart Associated angina: without angina Qualified Code(s): I25.810 - Atherosclerosis of coronary artery bypass graft(s) without angina pectoris (3) Elevated troponin I level Code(s): R74.8 - ABNORMAL LEVELS OF OTHER SERUM ENZYMES (4) HTN (hypertension) Code(s): I10 - ESSENTIAL (PRIMARY) HYPERTENSION Qualifiers: Hypertension type: essential hypertension Qualified Code(s): I10 - Essential (primary) hypertension (5) Influenza A Code(s): J10.1 - FLU DUE TO OTH IDENT INFLUENZA VIRUS W OTH RESP MANIFEST (6) Morbid obesity with BMI of 50.0-59.9, adult Code(s): E66.01 - MORBID (SEVERE) OBESITY DUE TO EXCESS CALORIES; Z68.43 - BODY MASS INDEX (BMI) 50-59.9 , ADULT (7) Respiratory failure with hypoxia and hypercapnia Code(s): J96.91 - RESPIRATORY FAILURE, UNSPECIFIED WITH HYPOXIA; J96.92 - RESPIRATORY FAILURE, UNSPECIFIED WITH HYPERCAPNIA Qualifiers: Chronicity: acute on chronic Qualified Code(s): J96.21 - Acute and chronic respiratory failure with hypoxia; J96.22 - Acute and chronic respiratory failure with hypercapnia; J96.22 - Acute and chronic respiratory failure with hypercapnia; J96.22 - Acute and chronic respiratory failure with hypercapnia (8) Uncontrolled diabetes mellitus Code(s): E11.65 - TYPE 2 DIABETES MELLITUS WITH HYPERGLYCEMIA Qualifiers: Diabetes mellitus type: type 2 Diabetes mellitus complication status: without complication 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
--- NOTE | 2017-12-29 14:27 | PN ---
Progress Note, Physician Chief Complaint: Currently on O2 via NC Dyspnea intermittently - feels better - Current Medication List Current Medications: Active Medications Albuterol/Ipratropium (Duoneb -) 1 amp NEB Q4H PRN PRN Reason: SHORTNESS OF BREATH Aspirin (Asa -) 81 mg PO DAILY [facility] Last Admin: 12/29/17 09:56 Dose: 81 mg Carvedilol (Coreg -) 3.125 mg PO BID [facility] Last Admin: 12/29/17 09:56 Dose: 3.125 mg Gabapentin (Neurontin -) 300 mg PO [facility] Heparin Sodium (Porcine) (Heparin -) 5,000 unit SQ TID [facility] Last Admin: 12/29/17 06:40 Dose: 5,000 unit Insulin Aspart (Novolog Vial Sliding Scale -) 1 vial SQ ACHS [facility] PRN Reason: Protocol Last Admin: 12/29/17 11:54 Dose: 4 units Insulin Detemir (Levemir Vial) 24 units SQ BID@0700,2200 [facility] Last Admin: 12/29/17 06:40 Dose: 24 units Losartan Potassium (Cozaar -) 100 mg PO DAILY [facility] Last Admin: 12/29/17 09:56 Dose: 100 mg Methylprednisolone Sodium Succinate (Solu-Medrol -) 40 mg IVPUSH BID@0600,1800 [facility] Last Admin: 12/29/17 06:40 Dose: 40 mg Pantoprazole Sodium (Protonix -) 20 mg PO DAILY [facility] Last Admin: 12/29/17 09:57 Dose: 20 mg Saliva Substitute (Mouthkote Solution -) 1 applic MM DAILY [facility] Last Admin: 12/29/17 09:59 Dose: 1 applic Fluticasone/Salmeterol (Advair 100mcg/50mcg -) 1 puff IH BID [facility] Last Admin: 12/29/17 09:55 Dose: 1 puff Spironolactone (Aldactone -) 25 mg PO DAILY [facility] Last Admin: 12/29/17 09:55 Dose: 25 mg - Objective Vital Signs: Vital Signs Temperature 97.2 F L 12/29/17 05:57 Pulse Rate 72 12/29/17 05:57 Respiratory Rate 20 12/29/17 09:00 Blood Pressure 145/65 12/29/17 05:57 O2 Sat by Pulse Oximetry (%) 90 L 12/29/17 09:00 Constitutional: Yes: Well Nourished Eyes: Yes: PERRL HENT: Yes: Atraumatic Neck: Yes: Supple Cardiovascular: Yes: Regular Rate and Rhythm, S1, S2 Respiratory: Yes: Diminished Gastrointestinal: Yes: Normal Bowel Sounds, Soft, Abdomen, Obese. No: Tenderness Edema: No Additional Findings/Remarks: - Review of Systems Constitutional: denies: Chills, Fever Cardiovascular: reports: Shortness of Breath. denies: Chest Pain, Palpitations Respiratory: reports: Cough, SOB, SOB on Exertion. denies: Hemoptysis, Orthopnea, PND Gastrointestinal: denies: Abdominal Pain, Constipation, Diarrhea, Dysphagia, Melena, Nausea, Rectal Bleeding, Vomiting Neurological: denies: Dizziness, Headache, Seizure, Syncope Labs: CBC, BMP 12/29/17 06:00 12/29/17 06:00 INR, PTT INR 1.19 (0.82-1.09) H 12/23/17 23:00 Problem List - Problems (1) Demand ischemia Code(s): I24.8 - OTHER FORMS OF ACUTE ISCHEMIC HEART DISEASE (2) CAD (coronary artery disease) of artery bypass graft Code(s): I25.810 - ATHEROSCLEROSIS OF CABG W/O ANGINA PECTORIS Qualifiers: [place] vs. transplanted heart: [place] heart Associated angina: without angina Qualified Code(s): I25.810 - Atherosclerosis of coronary artery bypass graft(s) without angina pectoris (3) Elevated troponin I level Code(s): R74.8 - ABNORMAL LEVELS OF OTHER SERUM ENZYMES (4) HTN (hypertension) Code(s): I10 - ESSENTIAL (PRIMARY) HYPERTENSION Qualifiers: Hypertension type: essential hypertension Qualified Code(s): I10 - Essential (primary) hypertension (5) Influenza A Code(s): J10.1 - FLU DUE TO OTH IDENT INFLUENZA VIRUS W OTH RESP MANIFEST (6) Morbid obesity with BMI of 50.0-59.9, adult Code(s): E66.01 - MORBID (SEVERE) OBESITY DUE TO EXCESS CALORIES; Z68.43 - BODY MASS INDEX (BMI) 50-59.9 , ADULT (7) Respiratory failure with hypoxia and hypercapnia Code(s): J96.91 - RESPIRATORY FAILURE, UNSPECIFIED WITH HYPOXIA; J96.92 - RESPIRATORY FAILURE, UNSPECIFIED WITH HYPERCAPNIA Qualifiers: Chronicity: acute on chronic Qualified Code(s): J96.21 - Acute and chronic respiratory failure with hypoxia; J96.22 - Acute and chronic respiratory failure with hypercapnia; J96.22 - Acute and chronic respiratory failure with hypercapnia; J96.22 - Acute and chronic respiratory failure with hypercapnia (8) Uncontrolled diabetes mellitus Code(s): E11.65 - TYPE 2 DIABETES MELLITUS WITH HYPERGLYCEMIA Qualifiers: Diabetes mellitus type: type 2 Diabetes mellitus complication status: without complication Diabetes mellitus correction insulin use: without correction use Qualified Code(s): E11.65 - Type 2 diabetes mellitus with hyperglycemia (9) COPD exacerbation Code(s): J44.1 - CHRONIC OBSTRUCTIVE PULMONARY DISEASE W (ACUTE) EXACERBATION (10) Shortness of breath Code(s): R06.02 - SHORTNESS OF BREATH Assessment/Plan 1. Clinical presentation with respiratory failure - (+) Influenza A 2. Coronary artery disease post CABG, angina pectoris - elevated troponin due to demand ischemia 3. LV systolic dysfunction - acute on chronic class II NYHA classification heart failure 4. Hypertension 5. Borderline diabetes mellitus 6. COPD and probable VIOLET PLAN: 1. Continue BIPAP as needed. Continue antibiotic support. Continue steroid taper and bronchodilators 2. Further cardiac work up after clinical improvement. Sleep study as outpatient for VIOLET 3. Continue Losartan and Carvedilol as tolerated 4. Continue ASA 81 mg once a day 6. Currently on Spironolactone Further plans are to follow Fitz Arboleda MD
--- NOTE | 2017-12-29 15:15 | PN ---
Progress Note, Physician Chief Complaint: Moved to floor on NC , desats with exertion History of Present Illness: 67 yrs old F H/O advanced COPD on Home O2 Non Complaint, CAD, HTN, T2DM, present with 1 day H/o worsening SOB< fever and Cough on arrival in mixed Hypoxic and Hypercarbic respiratory failure elevated TWBC , Influenza A a + B/L Pulmonary infiltrate , EKG QTC prolongation recived IV Dexmethasone, nebs, IV Levofloxacin and Tamiflu with BIPAP, Hypoxia improved admitted in ICU for further management. progressing well remained afebrile. - Current Medication List Current Medications: Active Medications Albuterol/Ipratropium (Duoneb -) 1 amp NEB Q4H PRN PRN Reason: SHORTNESS OF BREATH Aspirin (Asa -) 81 mg PO DAILY [facility] Last Admin: 12/29/17 09:56 Dose: 81 mg Carvedilol (Coreg -) 3.125 mg PO BID [facility] Last Admin: 12/29/17 09:56 Dose: 3.125 mg Gabapentin (Neurontin -) 300 mg PO HS [facility] Heparin Sodium (Porcine) (Heparin -) 5,000 unit SQ TID [facility] Last Admin: 12/29/17 14:24 Dose: 5,000 unit Insulin Aspart (Novolog Vial Sliding Scale -) 1 vial SQ ACHS [facility] PRN Reason: Protocol Last Admin: 12/29/17 11:54 Dose: 4 units Insulin Detemir (Levemir Vial) 24 units SQ BID@0700,2200 [facility] Last Admin: 12/29/17 06:40 Dose: 24 units Losartan Potassium (Cozaar -) 100 mg PO DAILY [facility] Last Admin: 12/29/17 09:56 Dose: 100 mg Methylprednisolone Sodium Succinate (Solu-Medrol -) 40 mg IVPUSH BID@0600,1800 [facility] Last Admin: 12/29/17 06:40 Dose: 40 mg Pantoprazole Sodium (Protonix -) 20 mg PO DAILY [facility] Last Admin: 12/29/17 09:57 Dose: 20 mg Saliva Substitute (Mouthkote Solution -) 1 applic MM DAILY [facility] Last Admin: 12/29/17 09:59 Dose: 1 applic Fluticasone/Salmeterol (Advair 100mcg/50mcg -) 1 puff IH BID [facility] Last Admin: 12/29/17 09:55 Dose: 1 puff Spironolactone (Aldactone -) 25 mg PO DAILY [facility] Last Admin: 12/29/17 09:55 Dose: 25 mg - Objective Vital Signs: Vital Signs Temperature 97.8 F 12/29/17 14:00 Pulse Rate 101 H 12/29/17 14:00 Respiratory Rate 18 12/29/17 14:00 Blood Pressure 92/53 12/29/17 14:00 O2 Sat by Pulse Oximetry (%) 90 L 12/29/17 09:00 Elderly F not in acute distress, on NC HEENT: MM dry. mild anemia, PERRLA EOMI NECK; No JVd , No Bruit CHEST: B/L Diffuse wheezes CVS: S1S2 R no m/g/r ABD: Obese, no distention, non tender Bs + EXT: + edema feet, no calf tenderness, no assumetry B/L Knee Pain. 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 B/L LL Infitrates on IV abx improving, u put on Nasal canula. Code(s): J96.91 - RESPIRATORY FAILURE, UNSPECIFIED WITH HYPOXIA; J96.92 - RESPIRATORY FAILURE, UNSPECIFIED WITH HYPERCAPNIA Qualifiers: Chronicity: acute on chronic Qualified Code(s): J96.21 - Acute and chronic respiratory failure with hypoxia; J96.22 - Acute and chronic respiratory failure with hypercapnia; J96.22 - Acute and chronic respiratory failure with hypercapnia; J96.22 - Acute and chronic respiratory failure with hypercapnia (2) Chronic obstructive pulmonary disease with (acute) exacerbation Assessment/Plan: Present with COPD exacerbation, Cont Nebs IV abx and Respiratory management BIPAP as per Pulmonary Critical care consult Code(s): J44.1 - CHRONIC OBSTRUCTIVE PULMONARY DISEASE W (ACUTE) EXACERBATION (3) Influenza A Assessment/Plan: On tamiflu Code(s): J10.1 - FLU DUE TO OTH IDENT INFLUENZA VIRUS W OTH RESP MANIFEST (4) Pneumonia Assessment/Plan: 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 Code(s): J18.9 - PNEUMONIA, UNSPECIFIED ORGANISM Qualifiers: Pneumonia type: due to unspecified organism (5) CHF exacerbation Assessment/Plan: CpOmfortable less respiratory distress Code(s): I50.9 - HEART FAILURE, UNSPECIFIED (6) Uncontrolled diabetes mellitus Assessment/Plan: Hb A!C > 9 FS are poorly controlled increase Levimir dose to 28 BID Code(s): E11.65 - TYPE 2 DIABETES MELLITUS WITH HYPERGLYCEMIA Qualifiers: Diabetes mellitus type: type 2 Diabetes mellitus complication status: without complication Diabetes mellitus senior care insulin use: without senior care use Qualified Code(s): E11.65 - Type 2 diabetes mellitus with hyperglycemia (7) HTN (hypertension) Assessment/Plan: Cont Home medication Code(s): I10 - ESSENTIAL (PRIMARY) HYPERTENSION Qualifiers: Hypertension type: essential hypertension Qualified Code(s): I10 - Essential (primary) hypertension (8) Morbid obesity with BMI of 50.0-59.9, adult Assessment/Plan: Nutritional consult as out patient Code(s): E66.01 - MORBID (SEVERE) OBESITY DUE TO EXCESS CALORIES; Z68.43 - BODY MASS INDEX (BMI) 50-59.9 , ADULT (9) CAD (coronary artery disease) of artery bypass graft Assessment/Plan: No C/O chest pain mildly elevated troponin I . ,most like;y Demand ischemia Code(s): I25.810 - ATHEROSCLEROSIS OF CABG W/O ANGINA PECTORIS Qualifiers: [place] vs. transplanted heart: [place] heart Associated angina: without angina Qualified Code(s): I25.810 - Atherosclerosis of coronary artery bypass graft(s) without angina pectoris (10) Elevated troponin I level Assessment/Plan: Elevated trop I no acute St T changes no chest pain most likely Demand ischemia , cardiology input appreciated
[2017-12-29] MEDS ORDERED: INSULIN (NOVOLOG) ASPART 100 UNITS/ML 10ML VIAL ONE (17:46)
[2017-12-29] MEDS: GABAPENTIN 300 MG CAPSULE (FP) PO SCH (21:47)
[2017-12-29] MEDS: INSULIN DETEMIR 100 UNITS/ML MDV SQ SCH (21:47)
[2017-12-29] MEDS ORDERED: CHLORHEXIDINE GLUCONATE 4% CLEANSER FOR DECOLONIZATION TP SCH (22:00)
[2017-12-30] MEDS: HEPARIN NA (PORCINE) 5,000 UNITS/ML 1ML VIAL SQ SCH ×3 (05:39→21:04)
[2017-12-30] MEDS: methylPREDNISolone NA SUCC 40 MG/1 ML VIAL IVPUSH SCH (05:39)
[2017-12-30] MEDS: INSULIN SLIDING SCALE (NOVOLOG) 1 VIAL SQ SCH ×4 (06:36→21:07)
[2017-12-30] MEDS: INSULIN DETEMIR 100 UNITS/ML MDV SQ SCH ×2 (06:37→21:05)
[2017-12-30] MEDS ORDERED: INSULIN (NOVOLOG) ASPART 100 UNITS/ML 10ML VIAL ONE ×3 (06:48→21:03)
[2017-12-30 07:57] LABS: BASO % 0.1 % (0-2.0); EOS % 0.2 % (0-4.5); HEMATOCRIT 40.1 % (32.4-45.2); HEMOGLOBIN 12.6 GM/dL (10.7-15.3); MCH 26.8 pg (25.7-33.7); MCHC 31.4 g/dl (32.0-36.0); MEAN CELL VOLUME 85.4 fl (80-96); MEAN PLT VOLUME 8.1 fl (7.5-11.1); MONO % 3.6 % (3.8-10.2); NEUT % 84.1 % (42.8-82.8); PLATELET COUNT 332 K/MM3 (134-434); RDW 16.2 % (11.6-15.6); WHITE BLOOD COUNT 12.7 K/mm3 (4.0-10.0)
[2017-12-30 09:33] LABS: CHLORIDE 94 mmol/L (98-107); POTASSIUM 4.7 mmol/L (3.5-5.1); SODIUM 135 mmol/L (136-145)
[2017-12-30 09:47] LABS: ANION GAP 7 (8-16); BLOOD UREA NITROGEN 29 mg/dL (7-18); CALCIUM 8.8 mg/dL (8.5-10.1); CO2 34 mmol/L (21-32); CREATININE 0.7 mg/dL (0.55-1.02); GLUCOSE,RANDOM 197 mg/dL (74-106)
[2017-12-30] MEDS ORDERED: PT OWN MED DRAWER 7, Y5N ONE (09:48)
[2017-12-30] MEDS: FLUTICASONE/SALMETEROL 100 MCG/50 MCG DISKUS IH SCH ×2 (09:51→21:04)
[2017-12-30] MEDS: CARVEDILOL 3.125 MG TABLET (FP) PO SCH (09:51)
[2017-12-30] MEDS: SPIRONOLACTONE 25 MG TABLET (FP) PO SCH (09:51)
[2017-12-30] MEDS: LOSARTAN POTASSIUM 50 MG TABLET (FP) PO SCH (09:51)
[2017-12-30] MEDS: ASPIRIN 81 MG CHEWABLE TABLETS PO SCH (09:51)
[2017-12-30] MEDS: PANTOPRAZOLE 20 MG TABLET (FP) PO SCH (09:51)
[2017-12-30] MEDS: LYTES/YERBA SANTA 240 ML BOTTLE MM SCH (09:53)
--- NOTE | 2017-12-30 12:38 | PN ---
Progress Note, Physician Chief Complaint: Feels improved denies any cough , no SOB at rest History of Present Illness: 67 yrs old F H/O advanced COPD on Home O2 Non Complaint, CAD, HTN, T2DM, present with 1 day H/o worsening SOB< fever and Cough on arrival in mixed Hypoxic and Hypercarbic respiratory failure elevated TWBC , Influenza A a + B/L Pulmonary infiltrate , EKG QTC prolongation recived IV Dexmethasone, nebs, IV Levofloxacin and Tamiflu with BIPAP, Hypoxia improved admitted in ICU for further management. progressing well remained afebrile. - Current Medication List Current Medications: Active Medications Albuterol/Ipratropium (Duoneb -) 1 amp NEB Q4H PRN PRN Reason: SHORTNESS OF BREATH Last Admin: 12/29/17 20:33 Dose: 1 amp Aspirin (Asa -) 81 mg PO DAILY [facility] Last Admin: 12/30/17 09:51 Dose: 81 mg Carvedilol (Coreg -) 3.125 mg PO BID [facility] Last Admin: 12/30/17 09:51 Dose: 3.125 mg Gabapentin (Neurontin -) 300 mg PO HS [facility] Last Admin: 12/29/17 21:47 Dose: 300 mg Heparin Sodium (Porcine) (Heparin -) 5,000 unit SQ TID [facility] Last Admin: 12/30/17 05:39 Dose: 5,000 unit Insulin Aspart (Novolog Vial Sliding Scale -) 1 vial SQ ACHS [facility] PRN Reason: Protocol Last Admin: 12/30/17 11:19 Dose: 6 units Insulin Detemir (Levemir Vial) 28 units SQ BID@0700,2200 [facility] Last Admin: 12/30/17 06:37 Dose: 28 units Losartan Potassium (Cozaar -) 100 mg PO DAILY [facility] Last Admin: 12/30/17 09:51 Dose: 100 mg Methylprednisolone Sodium Succinate (Solu-Medrol -) 40 mg IVPUSH BID@0600,1800 [facility] Last Admin: 12/30/17 05:39 Dose: 40 mg Pantoprazole Sodium (Protonix -) 20 mg PO DAILY [facility] Last Admin: 12/30/17 09:51 Dose: 20 mg Saliva Substitute (Mouthkote Solution -) 1 applic MM DAILY [facility] Last Admin: 12/30/17 09:53 Dose: 1 applic Fluticasone/Salmeterol (Advair 100mcg/50mcg -) 1 puff IH BID [facility] Last Admin: 12/30/17 09:51 Dose: 1 puff Spironolactone (Aldactone -) 25 mg PO DAILY [facility] Last Admin: 12/30/17 09:51 Dose: 25 mg - Objective Vital Signs: Vital Signs Temperature 97.0 F L 12/30/17 06:35 Pulse Rate 85 12/30/17 06:35 Respiratory Rate 20 12/30/17 06:35 Blood Pressure 110/66 12/30/17 06:35 O2 Sat by Pulse Oximetry (%) 94 L 12/29/17 21:00 Elderly F not in acute distress, on BIPAP HEENT: MM dry. mild anemia, PERRLA EOMI NECK; No JVd , No Bruit CHEST: B/L minimal wheezes CVS: S1S2 R no m/g/r ABD: Obese, no distention, non tender Bs + EXT: Trace edema feet, no calf tenderness, no assumetry B/L Knee Pain. 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 B/L LL Infitrates on IV abx improving, u put on Nasal canula. Code(s): J96.91 - RESPIRATORY FAILURE, UNSPECIFIED WITH HYPOXIA; J96.92 - RESPIRATORY FAILURE, UNSPECIFIED WITH HYPERCAPNIA Qualifiers: Chronicity: acute on chronic Qualified Code(s): J96.21 - Acute and chronic respiratory failure with hypoxia; J96.22 - Acute and chronic respiratory failure with hypercapnia; J96.22 - Acute and chronic respiratory failure with hypercapnia; J96.22 - Acute and chronic respiratory failure with hypercapnia (2) Chronic obstructive pulmonary disease with (acute) exacerbation Assessment/Plan: Present with COPD exacerbation, Cont Nebs IV abx and Respiratory management BIPAP as per Pulmonary Critical care consult Code(s): J44.1 - CHRONIC OBSTRUCTIVE PULMONARY DISEASE W (ACUTE) EXACERBATION (3) Influenza A Assessment/Plan: On tamiflu Code(s): J10.1 - FLU DUE TO OTH IDENT INFLUENZA VIRUS W OTH RESP MANIFEST (4) Pneumonia Assessment/Plan: 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 Code(s): J18.9 - PNEUMONIA, UNSPECIFIED ORGANISM Qualifiers: Pneumonia type: due to unspecified organism (5) CHF exacerbation Assessment/Plan: CpOmfortable less respiratory distress Code(s): I50.9 - HEART FAILURE, UNSPECIFIED (6) Uncontrolled diabetes mellitus Assessment/Plan: Hb A!C > 9 FS are poorly controlled increase Levimir dose to 30 BID Code(s): E11.65 - TYPE 2 DIABETES MELLITUS WITH HYPERGLYCEMIA Qualifiers: Diabetes mellitus type: type 2 Diabetes mellitus complication status: without complication 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: without care home use Qualified Code(s): E11.65 - Type 2 diabetes mellitus with hyperglycemia (7) HTN (hypertension) Assessment/Plan: Cont Home medication Code(s): I10 - ESSENTIAL (PRIMARY) HYPERTENSION Qualifiers: Hypertension type: essential hypertension Qualified Code(s): I10 - Essential (primary) hypertension (8) Morbid obesity with BMI of 50.0-59.9, adult Assessment/Plan: Nutritional consult as out patient Code(s): E66.01 - MORBID (SEVERE) OBESITY DUE TO EXCESS CALORIES; Z68.43 - BODY MASS INDEX (BMI) 50-59.9 , ADULT (9) CAD (coronary artery disease) of artery bypass graft Assessment/Plan: No C/O chest pain mildly elevated troponin I . ,most like;y Demand ischemia Code(s): I25.810 - ATHEROSCLEROSIS OF CABG W/O ANGINA PECTORIS Qualifiers: [place] vs. transplanted heart: [place] heart Associated angina: without angina Qualified Code(s): I25.810 - Atherosclerosis of coronary artery bypass graft(s) without angina pectoris (10) Elevated troponin I level Assessment/Plan: Elevated trop I no acute St T changes no chest pain most likely Demand ischemia , cardiology input appreciated Assessment/Plan Patient is improved significantly, agrees for HAIDER, F/U ID input for duration of abx and pulmologist switch to PO Prednisone PT evaluation O2 saturation before and after exertion.
--- NOTE | 2017-12-30 13:37 | PN ---
Progress Note, Physician History of Present Illness: Productive cough, dyspnea slowly improving, ambulated earlier today. - Current Medication List Current Medications: Active Medications Albuterol/Ipratropium (Duoneb -) 1 amp NEB Q4H PRN PRN Reason: SHORTNESS OF BREATH Last Admin: 12/29/17 20:33 Dose: 1 amp Aspirin (Asa -) 81 mg PO DAILY [facility] Last Admin: 12/30/17 09:51 Dose: 81 mg Carvedilol (Coreg -) 3.125 mg PO BID [facility] Last Admin: 12/30/17 09:51 Dose: 3.125 mg Gabapentin (Neurontin -) 300 mg PO HS [facility] Last Admin: 12/29/17 21:47 Dose: 300 mg Heparin Sodium (Porcine) (Heparin -) 5,000 unit SQ TID [facility] Last Admin: 12/30/17 05:39 Dose: 5,000 unit Insulin Aspart (Novolog Vial Sliding Scale -) 1 vial SQ ACHS [facility] PRN Reason: Protocol Last Admin: 12/30/17 11:19 Dose: 6 units Insulin Detemir (Levemir Vial) 30 units SQ BID@0700,2200 [facility] Losartan Potassium (Cozaar -) 100 mg PO DAILY [facility] Last Admin: 12/30/17 09:51 Dose: 100 mg Methylprednisolone Sodium Succinate (Solu-Medrol -) 40 mg IVPUSH BID@0600,1800 [facility] Last Admin: 12/30/17 05:39 Dose: 40 mg Pantoprazole Sodium (Protonix -) 20 mg PO DAILY [facility] Last Admin: 12/30/17 09:51 Dose: 20 mg Saliva Substitute (Mouthkote Solution -) 1 applic MM DAILY [facility] Last Admin: 12/30/17 09:53 Dose: 1 applic Fluticasone/Salmeterol (Advair 100mcg/50mcg -) 1 puff IH BID [facility] Last Admin: 12/30/17 09:51 Dose: 1 puff Spironolactone (Aldactone -) 25 mg PO DAILY [facility] Last Admin: 12/30/17 09:51 Dose: 25 mg - Objective Vital Signs: Vital Signs Temperature 97.0 F L 12/30/17 06:35 Pulse Rate 85 12/30/17 06:35 Respiratory Rate 20 12/30/17 06:35 Blood Pressure 110/66 12/30/17 06:35 O2 Sat by Pulse Oximetry (%) 94 L 12/29/17 21:00 Constitutional: Yes: No Distress, Calm Neck: Yes: Supple Cardiovascular: Yes: Regular Rate and Rhythm Respiratory: Yes: Regular, Diminished, On Nasal O2 Gastrointestinal: Yes: Normal Bowel Sounds, Soft, Abdomen, Obese Edema: Yes Edema: LLE: Trace, RLE: Trace Labs: CBC, BMP 12/30/17 06:35 12/30/17 06:35 INR, PTT INR 1.19 (0.82-1.09) H 12/23/17 23:00 Problem List - Problems (1) CAD (coronary artery disease) of artery bypass graft Code(s): I25.810 - ATHEROSCLEROSIS OF CABG W/O ANGINA PECTORIS Qualifiers: [place] vs. transplanted heart: [place] heart Associated angina: without angina Qualified Code(s): I25.810 - Atherosclerosis of coronary artery bypass graft(s) without angina pectoris (2) Chronic obstructive pulmonary disease with (acute) exacerbation Code(s): J44.1 - CHRONIC OBSTRUCTIVE PULMONARY DISEASE W (ACUTE) EXACERBATION (3) Demand ischemia Code(s): I24.8 - OTHER FORMS OF ACUTE ISCHEMIC HEART DISEASE (4) HTN (hypertension) Code(s): I10 - ESSENTIAL (PRIMARY) HYPERTENSION Qualifiers: Hypertension type: essential hypertension Qualified Code(s): I10 - Essential (primary) hypertension (5) Influenza A Code(s): J10.1 - FLU DUE TO OTH IDENT INFLUENZA VIRUS W OTH RESP MANIFEST (6) Morbid obesity with BMI of 50.0-59.9, adult Code(s): E66.01 - MORBID (SEVERE) OBESITY DUE TO EXCESS CALORIES; Z68.43 - BODY MASS INDEX (BMI) 50-59.9 , ADULT (7) Pneumonia Code(s): J18.9 - PNEUMONIA, UNSPECIFIED ORGANISM Qualifiers: Pneumonia type: due to unspecified organism (8) Respiratory failure with hypoxia and hypercapnia Code(s): J96.91 - RESPIRATORY FAILURE, UNSPECIFIED WITH HYPOXIA; J96.92 - RESPIRATORY FAILURE, UNSPECIFIED WITH HYPERCAPNIA Qualifiers: Chronicity: acute on chronic Qualified Code(s): J96.21 - Acute and chronic respiratory failure with hypoxia; J96.22 - Acute and chronic respiratory failure with hypercapnia; J96.22 - Acute and chronic respiratory failure with hypercapnia; J96.22 - Acute and chronic respiratory failure with hypercapnia (9) Systolic dysfunction, left ventricle Code(s): I51.9 - HEART DISEASE, UNSPECIFIED Assessment/Plan 12/24/2017 Transthoracic echocardiography: Normal LV size with moderate decreased LV fxn, tr TR 1. Acute on chronic hypercapneic/hypoxemic respiratory failure - AE COPD, (+) Influenza A improving 2. Coronary artery disease post CABG, angina pectoris - elevated troponin due to demand ischemia 3. LV systolic dysfunction (moderate) - acute on chronic class II NYHA classification heart failure euvolemic 4. Hypertension 5. Diabetes mellitus 6. OSAS/OHS suspect PLAN: 1. Continue BIPAP nightly as needed. Completed Tamiflu and abx course, continue IV steroid taper with GI protection, O2 and bronchodilators as needed 2. Further cardiac work up including nuclear myocardial perfusion can be done as outpatient. 3. Continue ASA 81 qd, Losartan 100 qd, Carvedilol 3.125 mg BID and Aldactone 25 qd with uptitration as tolerated 4. DVT and GI prophylaxis 5. PSG as outpatient to confirm OSAS
--- NOTE | 2017-12-30 15:30 | PN ---
Progress Note (short form) - Note Progress Note: PULMONARY WANTS TO GO HOME SUBJECTIVELY IMPROVED VSS/AFEBRILE ANICTERIC CHEST CLEAR S1S2 RSR BS+ SOFT NONTENDER/OBESE DECREASED EDEMA LABS/MEDS/NOTES/IMAGES REVIEWED Acute on chronic hypercapneic/hypoxemic respiratory failure AE COPD (+) Influenza A Coronary artery disease post CABG, angina pectoris - elevated troponin due to demand ischemia LV systolic dysfunction (moderate) - acute on chronic class II NYHA classification heart failure euvolemic Hypertension Diabetes mellitus OSAS/OHS suspect Continue BIPAP HS/PRN Completed Tamiflu and abx course, IV steroids changed to prednisone O2 and bronchodilators as needed DVT and GI prophylaxis PSG as outpatient to confirm OSAS Jordan WALTERS MD
[2017-12-30] MEDS: GABAPENTIN 300 MG CAPSULE (FP) PO SCH (21:04)
[2017-12-30] MEDS: CARVEDILOL 6.25 MG TABLET (FP) PO SCH (21:05)
[2017-12-31] MEDS: INSULIN SLIDING SCALE (NOVOLOG) 1 VIAL SQ SCH ×3 (06:33→17:10)
[2017-12-31] MEDS: HEPARIN NA (PORCINE) 5,000 UNITS/ML 1ML VIAL SQ SCH ×2 (06:33→13:52)
[2017-12-31] MEDS: INSULIN DETEMIR 100 UNITS/ML MDV SQ SCH (06:34)
[2017-12-31] MEDS ORDERED: predniSONE 20 MG TABLET (UD) PO SCH (10:00)
[2017-12-31] MEDS: CARVEDILOL 6.25 MG TABLET (FP) PO SCH (10:07)
[2017-12-31] MEDS: ASPIRIN 81 MG CHEWABLE TABLETS PO SCH (10:07)
[2017-12-31] MEDS: PANTOPRAZOLE 20 MG TABLET (FP) PO SCH (10:08)
[2017-12-31] MEDS: SPIRONOLACTONE 25 MG TABLET (FP) PO SCH (10:08)
[2017-12-31] MEDS: LOSARTAN POTASSIUM 50 MG TABLET (FP) PO SCH (10:08)
[2017-12-31] MEDS: LYTES/YERBA SANTA 240 ML BOTTLE MM SCH (10:10)
[2017-12-31] MEDS: FLUTICASONE/SALMETEROL 100 MCG/50 MCG DISKUS IH SCH (10:10)
--- NOTE | 2017-12-31 10:51 | PN ---
Progress Note (short form) - Note Progress Note: Feels better overall. Used NIPPV overnight. Currently NAD on NC O2. No CP. Intake & Output 12/28/17 12/29/17 12/30/17 12/31/17 23:59 23:59 23:59 23:59 Intake Total 900 1350 700 Output Total 4950 Balance -4050 1350 700 Weight 334 lb 7.06 oz 327 lb 8 oz 330 lb 3 oz 333 lb 8 oz Last Vital Signs Temp Pulse Resp BP Pulse Ox 97.5 F L 77 18 109/65 95 12/31/17 05:27 12/31/17 05:27 12/31/17 05:27 12/31/17 05:27 12/30/17 20:19 Active Medications Albuterol/Ipratropium (Duoneb -) 1 amp NEB Q4H PRN PRN Reason: SHORTNESS OF BREATH Last Admin: 12/29/17 20:33 Dose: 1 amp Aspirin (Asa -) 81 mg PO DAILY [facility] Last Admin: 12/31/17 10:07 Dose: 81 mg Carvedilol (Coreg -) 6.25 mg PO BID [facility] Last Admin: 12/31/17 10:07 Dose: 6.25 mg Gabapentin (Neurontin -) 300 mg PO HS [facility] Last Admin: 12/30/17 21:04 Dose: 300 mg Heparin Sodium (Porcine) (Heparin -) 5,000 unit SQ TID [facility] Last Admin: 12/31/17 06:33 Dose: 5,000 unit Insulin Aspart (Novolog Vial Sliding Scale -) 1 vial SQ ACHS [facility] PRN Reason: Protocol Last Admin: 12/31/17 06:33 Dose: Not Given Insulin Detemir (Levemir Vial) 30 units SQ BID@0700,2200 [facility] Last Admin: 12/31/17 06:34 Dose: 30 units Losartan Potassium (Cozaar -) 100 mg PO DAILY [facility] Last Admin: 12/31/17 10:08 Dose: 100 mg Pantoprazole Sodium (Protonix -) 20 mg PO DAILY [facility] Last Admin: 12/31/17 10:08 Dose: 20 mg Prednisone (Deltasone -) 40 mg PO DAILY [facility] Last Admin: 12/31/17 10:07 Dose: 40 mg Saliva Substitute (Mouthkote Solution -) 1 applic MM DAILY [facility] Last Admin: 12/31/17 10:10 Dose: 1 applic Fluticasone/Salmeterol (Advair 100mcg/50mcg -) 1 puff IH BID [facility] Last Admin: 12/31/17 10:10 Dose: 1 puff Spironolactone (Aldactone -) 25 mg PO DAILY [facility] Last Admin: 12/31/17 10:08 Dose: 25 mg GENERAL: Awake and alert on NC O2 HEAD: NCAT EYES: PERRL, EOMI, non injected sclera, no exudate EARS, NOSE, THROAT: NECK: Normal range of motion, supple without lymphadenopathy LUNGS: scattered rhonchi, diminished bases, no wheezes HEART: Regular rate and rhythm, normal S1 and S2 without murmur, rub or gallop. ABDOMEN: Soft, obese nontender, not distended, normoactive bowel sounds, no guarding LOWER EXTREMITIES: 2+ dorsalis pedis pulses, warm, well-perfused. No calf tenderness. 1+ dependent edema NEUROLOGICAL: Non-focal PSYCHIATRIC: Cooperative Laboratory Results - last 24 hr 12/30/17 12/30/17 12/30/17 11:18 16:54 21:00 POC Glucometer 267 301 219 12/31/17 05:53 POC Glucometer 133 IMP: Acute on chronic hypoxic / hypercapneic failure CHF AE of COPD Influenza A PLAN: -NIPPV QHS and PRN -Tamiflu completed -Off ABX -Lasix -BD [place] -Prednisone -VTE prophylaxis -D/C planning (?) to SNF. If anticipated to go home -> will need to check Pre & Post ambulation O2 saturation Dr Hollins
--- NOTE | 2017-12-31 12:05 | PN ---
Progress Note, Physician History of Present Illness: Productive cough, dyspnea slowly improving, ambulated earlier today. - Current Medication List Current Medications: Active Medications Albuterol/Ipratropium (Duoneb -) 1 amp NEB Q4H PRN PRN Reason: SHORTNESS OF BREATH Last Admin: 12/29/17 20:33 Dose: 1 amp Aspirin (Asa -) 81 mg PO DAILY [facility] Last Admin: 12/31/17 10:07 Dose: 81 mg Carvedilol (Coreg -) 6.25 mg PO BID [facility] Last Admin: 12/31/17 10:07 Dose: 6.25 mg Gabapentin (Neurontin -) 300 mg PO HS [facility] Last Admin: 12/30/17 21:04 Dose: 300 mg Heparin Sodium (Porcine) (Heparin -) 5,000 unit SQ TID [facility] Last Admin: 12/31/17 06:33 Dose: 5,000 unit Insulin Aspart (Novolog Vial Sliding Scale -) 1 vial SQ ACHS [facility] PRN Reason: Protocol Last Admin: 12/31/17 11:15 Dose: 2 units Insulin Detemir (Levemir Vial) 30 units SQ BID@0700,2200 [facility] Last Admin: 12/31/17 06:34 Dose: 30 units Losartan Potassium (Cozaar -) 100 mg PO DAILY [facility] Last Admin: 12/31/17 10:08 Dose: 100 mg Pantoprazole Sodium (Protonix -) 20 mg PO DAILY [facility] Last Admin: 12/31/17 10:08 Dose: 20 mg Prednisone (Deltasone -) 40 mg PO DAILY [facility] Last Admin: 12/31/17 10:07 Dose: 40 mg Saliva Substitute (Mouthkote Solution -) 1 applic MM DAILY [facility] Last Admin: 12/31/17 10:10 Dose: 1 applic Fluticasone/Salmeterol (Advair 100mcg/50mcg -) 1 puff IH BID [facility] Last Admin: 12/31/17 10:10 Dose: 1 puff Spironolactone (Aldactone -) 25 mg PO DAILY [facility] Last Admin: 12/31/17 10:08 Dose: 25 mg - Objective Vital Signs: Vital Signs Temperature 97.5 F L 12/31/17 05:27 Pulse Rate 72 12/31/17 11:37 Respiratory Rate 18 12/31/17 05:27 Blood Pressure 109/65 12/31/17 05:27 O2 Sat by Pulse Oximetry (%) 92 L 12/31/17 11:37 Constitutional: Yes: No Distress, Calm Neck: Yes: Supple Cardiovascular: Yes: Regular Rate and Rhythm Respiratory: Yes: Regular, Diminished, On Nasal O2 Gastrointestinal: Yes: Normal Bowel Sounds, Soft, Abdomen, Obese Edema: Yes Edema: LLE: Trace, RLE: Trace Labs: CBC, BMP 12/30/17 06:35 12/30/17 06:35 INR, PTT INR 1.19 (0.82-1.09) H 12/23/17 23:00 Problem List - Problems (1) CAD (coronary artery disease) of artery bypass graft Code(s): I25.810 - ATHEROSCLEROSIS OF CABG W/O ANGINA PECTORIS Qualifiers: [place] vs. transplanted heart: [place] heart Associated angina: without angina Qualified Code(s): I25.810 - Atherosclerosis of coronary artery bypass graft(s) without angina pectoris (2) Chronic obstructive pulmonary disease with (acute) exacerbation Code(s): J44.1 - CHRONIC OBSTRUCTIVE PULMONARY DISEASE W (ACUTE) EXACERBATION (3) Demand ischemia Code(s): I24.8 - OTHER FORMS OF ACUTE ISCHEMIC HEART DISEASE (4) HTN (hypertension) Code(s): I10 - ESSENTIAL (PRIMARY) HYPERTENSION Qualifiers: Hypertension type: essential hypertension Qualified Code(s): I10 - Essential (primary) hypertension (5) Influenza A Code(s): J10.1 - FLU DUE TO OTH IDENT INFLUENZA VIRUS W OTH RESP MANIFEST (6) Morbid obesity with BMI of 50.0-59.9, adult Code(s): E66.01 - MORBID (SEVERE) OBESITY DUE TO EXCESS CALORIES; Z68.43 - BODY MASS INDEX (BMI) 50-59.9 , ADULT (7) Pneumonia Code(s): J18.9 - PNEUMONIA, UNSPECIFIED ORGANISM Qualifiers: Pneumonia type: due to unspecified organism (8) Respiratory failure with hypoxia and hypercapnia Code(s): J96.91 - RESPIRATORY FAILURE, UNSPECIFIED WITH HYPOXIA; J96.92 - RESPIRATORY FAILURE, UNSPECIFIED WITH HYPERCAPNIA Qualifiers: Chronicity: acute on chronic Qualified Code(s): J96.21 - Acute and chronic respiratory failure with hypoxia; J96.22 - Acute and chronic respiratory failure with hypercapnia; J96.22 - Acute and chronic respiratory failure with hypercapnia; J96.22 - Acute and chronic respiratory failure with hypercapnia (9) Systolic dysfunction, left ventricle Code(s): I51.9 - HEART DISEASE, UNSPECIFIED Assessment/Plan 12/24/2017 Transthoracic echocardiography: Normal LV size with moderate decreased LV fxn, tr TR 1. Acute on chronic hypercapneic/hypoxemic respiratory failure - AE COPD, (+) Influenza A improving 2. Coronary artery disease post CABG, angina pectoris - elevated troponin due to demand ischemia 3. LV systolic dysfunction (moderate) - acute on chronic class II NYHA classification heart failure now euvolemic 4. Hypertension 5. Diabetes mellitus 6. OSAS/OHS suspect PLAN: 1. Continue BIPAP nightly as needed. Completed Tamiflu and abx course, continue oral steroid taper with GI protection, O2 and bronchodilators as needed, NIPPV QHS and PRN 2. Further cardiac work up including nuclear myocardial perfusion can be done as outpatient. 3. Continue ASA 81 qd, Losartan 100 qd, Carvedilol 6.25 mg BID and Aldactone 25 qd with uptitration as tolerated 4. DVT and GI prophylaxis 5. PSG as outpatient to confirm OSAS 6. D/c planning
--- NOTE | 2017-12-31 13:12 | DS ---
Physical Examination Vital Signs: Vital Signs Temperature 97.8 F 12/31/17 09:00 Pulse Rate 72 12/31/17 11:37 Respiratory Rate 18 12/31/17 09:00 Blood Pressure 92/52 12/31/17 09:00 O2 Sat by Pulse Oximetry (%) 92 L 12/31/17 11:37 Elderly F not in acute distress, pn BIPAP c/p Back pain HEENT: MM dry. mild anemia, PERRLA EOMI NECK; No JVd , No Bruit CHEST: B/L Diffuse wheezes CVS: S1S2 R no m/g/r ABD: Obese, no distention, non tender Bs + EXT: Trace edema feet, no calf tenderness, no assumetry B/L Knee Pain. Pulses + MEDICAL ADMINISTRATIVE: AOx3 non focal Labs: CBC, BMP 12/30/17 06:35 12/30/17 06:35 Discharge Summary Reason For Visit: ACUTE RESPIRATORY FAILURE W/HYPOXIA PNA Current Active Problems CAD (coronary artery disease) of artery bypass graft (Acute) CHF exacerbation (Acute) Chronic obstructive pulmonary disease with (acute) exacerbation (Acute) Demand ischemia (Acute) Elevated troponin I level (Acute) HTN (hypertension) (Acute) Influenza A (Acute) Morbid obesity with BMI of 50.0-59.9, adult (Acute) Pneumonia (Acute) Respiratory failure with hypoxia and hypercapnia (Acute) Systolic dysfunction, left ventricle (Acute) Uncontrolled diabetes mellitus (Acute) Hospital Course: 67 yrs old F H/O advanced COPD on Home O2 Non Complaint, CAD, HTN, T2DM, present with 1 day H/o worsening SOB< fever and Cough on arrival in mixed Hypoxic and Hypercarbic respiratory failure elevated TWBC , Influenza A a + B/L Pulmonary infiltrate , EKG QTC prolongation recived IV Dexmethasone, nebs, IV Levofloxacin and Tamiflu with BIPAP, Hypoxia improved admitted in ICU for further management. - Instructions Diet, Activity, Other Instructions: Diabetic, low salt As tolerated Referrals: Samia Rivera MD [Primary Care Provider] - Disposition: HALF-WAY FACILITY - Home Medications Comprehensive Discharge Medication List: Ambulatory Orders Albuterol/Ipratropium (Duoneb -) 1 amp NEB Q4H PRN PRN Reason: SHORTNESS OF BREATH Last Admin: 12/29/17 20:33 Dose: 1 amp Aspirin (Asa -) 81 mg PO DAILY [facility] Last Admin: 12/31/17 10:07 Dose: 81 mg Carvedilol (Coreg -) 6.25 mg PO BID [facility] Last Admin: 12/31/17 10:07 Dose: 6.25 mg Gabapentin (Neurontin -) 300 mg PO HS [facility] Last Admin: 12/30/17 21:04 Dose: 300 mg Heparin Sodium (Porcine) (Heparin -) 5,000 unit SQ TID [facility] Last Admin: 12/31/17 13:52 Dose: 5,000 unit Insulin Aspart (Novolog Vial Sliding Scale -) 1 vial SQ ACHS [facility] PRN Reason: Protocol Last Admin: 12/31/17 11:15 Dose: 2 units Insulin Detemir (Levemir Vial) 30 units SQ BID@0700,2200 [facility] Last Admin: 12/31/17 06:34 Dose: 30 units Losartan Potassium (Cozaar -) 100 mg PO DAILY [facility] Last Admin: 12/31/17 10:08 Dose: 100 mg Pantoprazole Sodium (Protonix -) 20 mg PO DAILY [facility] Last Admin: 12/31/17 10:08 Dose: 20 mg Prednisone (Deltasone -) 40 mg PO DAILY [facility] Last Admin: 12/31/17 10:07 Dose: 40 mg Saliva Substitute (Mouthkote Solution -) 1 applic MM DAILY [facility] Last Admin: 12/31/17 10:10 Dose: 1 applic Fluticasone/Salmeterol (Advair 100mcg/50mcg -) 1 puff IH BID [facility] Last Admin: 12/31/17 10:10 Dose: 1 puff Spironolactone (Aldactone -) 25 mg PO DAILY [facility] Last Admin: 12/31/17 10:08 Dose: 25 mg
[2017-12-31 14:43] VITALS: BP 102/51; PULSE 89; TEMP 98
--- NOTE | 2017-12-31 15:41 | PN ---
Progress Note, Physician History of Present Illness: patient looks much better no complaints breathing much better - Current Medication List Current Medications: Active Medications Albuterol/Ipratropium (Duoneb -) 1 amp NEB Q4H PRN PRN Reason: SHORTNESS OF BREATH Last Admin: 12/29/17 20:33 Dose: 1 amp Aspirin (Asa -) 81 mg PO DAILY [facility] Last Admin: 12/31/17 10:07 Dose: 81 mg Carvedilol (Coreg -) 6.25 mg PO BID [facility] Last Admin: 12/31/17 10:07 Dose: 6.25 mg Gabapentin (Neurontin -) 300 mg PO HS [facility] Last Admin: 12/30/17 21:04 Dose: 300 mg Heparin Sodium (Porcine) (Heparin -) 5,000 unit SQ TID [facility] Last Admin: 12/31/17 13:52 Dose: 5,000 unit Insulin Aspart (Novolog Vial Sliding Scale -) 1 vial SQ ACHS [facility] PRN Reason: Protocol Last Admin: 12/31/17 11:15 Dose: 2 units Insulin Detemir (Levemir Vial) 30 units SQ BID@0700,2200 [facility] Last Admin: 12/31/17 06:34 Dose: 30 units Losartan Potassium (Cozaar -) 100 mg PO DAILY [facility] Last Admin: 12/31/17 10:08 Dose: 100 mg Pantoprazole Sodium (Protonix -) 20 mg PO DAILY [facility] Last Admin: 12/31/17 10:08 Dose: 20 mg Prednisone (Deltasone -) 40 mg PO DAILY [facility] Last Admin: 12/31/17 10:07 Dose: 40 mg Saliva Substitute (Mouthkote Solution -) 1 applic MM DAILY [facility] Last Admin: 12/31/17 10:10 Dose: 1 applic Fluticasone/Salmeterol (Advair 100mcg/50mcg -) 1 puff IH BID [facility] Last Admin: 12/31/17 10:10 Dose: 1 puff Spironolactone (Aldactone -) 25 mg PO DAILY [facility] Last Admin: 12/31/17 10:08 Dose: 25 mg - Objective Vital Signs: Vital Signs Temperature 98.0 F 12/31/17 14:00 Pulse Rate 89 12/31/17 14:00 Respiratory Rate 20 12/31/17 14:00 Blood Pressure 102/51 12/31/17 14:00 O2 Sat by Pulse Oximetry (%) 92 L 12/31/17 11:37 Constitutional: Yes: No Distress, Calm Eyes: Yes: Conjunctiva Clear Cardiovascular: Yes: Regular Rate and Rhythm Respiratory: Yes: Regular, CTA Bilaterally, On Nasal O2, Poor Air Entry Gastrointestinal: Yes: Normal Bowel Sounds, Soft Musculoskeletal: Yes: WNL Extremities: Yes: WNL Neurological: Yes: Alert, Oriented Labs: CBC, BMP 12/30/17 06:35 12/30/17 06:35 INR, PTT INR 1.19 (0.82-1.09) H 12/23/17 23:00 Assessment/Plan Problem List - Problems (1) Demand ischemia Code(s): I24.8 - OTHER FORMS OF ACUTE ISCHEMIC HEART DISEASE (2) CAD (coronary artery disease) of artery bypass graft Code(s): I25.810 - ATHEROSCLEROSIS OF CABG W/O ANGINA PECTORIS Qualifiers: [place] vs. transplanted heart: [place] heart Associated angina: without angina Qualified Code(s): I25.810 - Atherosclerosis of coronary artery bypass graft(s) without angina pectoris (3) Elevated troponin I level Code(s): R74.8 - ABNORMAL LEVELS OF OTHER SERUM ENZYMES (4) HTN (hypertension) Code(s): I10 - ESSENTIAL (PRIMARY) HYPERTENSION Qualifiers: Hypertension type: essential hypertension Qualified Code(s): I10 - Essential (primary) hypertension (5) Influenza A Code(s): J10.1 - FLU DUE TO OTH IDENT INFLUENZA VIRUS W OTH RESP MANIFEST (6) Morbid obesity with BMI of 50.0-59.9, adult Code(s): E66.01 - MORBID (SEVERE) OBESITY DUE TO EXCESS CALORIES; Z68.43 - BODY MASS INDEX (BMI) 50-59.9 , ADULT (7) Respiratory failure with hypoxia and hypercapnia Code(s): J96.91 - RESPIRATORY FAILURE, UNSPECIFIED WITH HYPOXIA; J96.92 - RESPIRATORY FAILURE, UNSPECIFIED WITH HYPERCAPNIA Qualifiers: Chronicity: acute on chronic Qualified Code(s): J96.21 - Acute and chronic respiratory failure with hypoxia; J96.22 - Acute and chronic respiratory failure with hypercapnia; J96.22 - Acute and chronic respiratory failure with hypercapnia; J96.22 - Acute and chronic respiratory failure with hypercapnia (8) Uncontrolled diabetes mellitus Code(s): E11.65 - TYPE 2 DIABETES MELLITUS WITH HYPERGLYCEMIA Qualifiers: Diabetes mellitus type: type 2 Diabetes mellitus complication status: without complication Diabetes mellitus intermodal dispatcher insulin use: without intermodal dispatcher use Qualified Code(s): E11.65 - Type 2 diabetes mellitus with hyperglycemia (9) COPD exacerbation Code(s): J44.1 - CHRONIC OBSTRUCTIVE PULMONARY DISEASE W (ACUTE) EXACERBATION (10) Shortness of breath Code(s): R06.02 - SHORTNESS OF BREATH 11 pneumonia plan stable off of abx continue current mgmt
--- NOTE | 2017-12-31 15:43 | PN ---
Progress Note, Physician History of Present Illness: patient stable doing well no issues - Current Medication List Current Medications: Active Medications Albuterol/Ipratropium (Duoneb -) 1 amp NEB Q4H PRN PRN Reason: SHORTNESS OF BREATH Last Admin: 12/29/17 20:33 Dose: 1 amp Aspirin (Asa -) 81 mg PO DAILY [facility] Last Admin: 12/31/17 10:07 Dose: 81 mg Carvedilol (Coreg -) 6.25 mg PO BID [facility] Last Admin: 12/31/17 10:07 Dose: 6.25 mg Gabapentin (Neurontin -) 300 mg PO HS [facility] Last Admin: 12/30/17 21:04 Dose: 300 mg Heparin Sodium (Porcine) (Heparin -) 5,000 unit SQ TID [facility] Last Admin: 12/31/17 13:52 Dose: 5,000 unit Insulin Aspart (Novolog Vial Sliding Scale -) 1 vial SQ ACHS [facility] PRN Reason: Protocol Last Admin: 12/31/17 11:15 Dose: 2 units Insulin Detemir (Levemir Vial) 30 units SQ BID@0700,2200 [facility] Last Admin: 12/31/17 06:34 Dose: 30 units Losartan Potassium (Cozaar -) 100 mg PO DAILY [facility] Last Admin: 12/31/17 10:08 Dose: 100 mg Pantoprazole Sodium (Protonix -) 20 mg PO DAILY [facility] Last Admin: 12/31/17 10:08 Dose: 20 mg Prednisone (Deltasone -) 40 mg PO DAILY [facility] Last Admin: 12/31/17 10:07 Dose: 40 mg Saliva Substitute (Mouthkote Solution -) 1 applic MM DAILY [facility] Last Admin: 12/31/17 10:10 Dose: 1 applic Fluticasone/Salmeterol (Advair 100mcg/50mcg -) 1 puff IH BID [facility] Last Admin: 12/31/17 10:10 Dose: 1 puff Spironolactone (Aldactone -) 25 mg PO DAILY [facility] Last Admin: 12/31/17 10:08 Dose: 25 mg - Objective Vital Signs: Vital Signs Temperature 98.0 F 12/31/17 14:00 Pulse Rate 89 12/31/17 14:00 Respiratory Rate 20 12/31/17 14:00 Blood Pressure 102/51 12/31/17 14:00 O2 Sat by Pulse Oximetry (%) 92 L 12/31/17 11:37 Constitutional: Yes: No Distress, Calm, Obese Cardiovascular: Yes: Regular Rate and Rhythm Respiratory: Yes: Regular, CTA Bilaterally Gastrointestinal: Yes: Normal Bowel Sounds, Soft Musculoskeletal: Yes: WNL Extremities: Yes: WNL Neurological: Yes: Alert, Oriented Psychiatric: Yes: Alert, Oriented Labs: CBC, BMP 12/30/17 06:35 12/30/17 06:35 INR, PTT INR 1.19 (0.82-1.09) H 12/23/17 23:00 Assessment/Plan Problem List - Problems (1) Demand ischemia Code(s): I24.8 - OTHER FORMS OF ACUTE ISCHEMIC HEART DISEASE (2) CAD (coronary artery disease) of artery bypass graft Code(s): I25.810 - ATHEROSCLEROSIS OF CABG W/O ANGINA PECTORIS Qualifiers: [place] vs. transplanted heart: [place] heart Associated angina: without angina Qualified Code(s): I25.810 - Atherosclerosis of coronary artery bypass graft(s) without angina pectoris (3) Elevated troponin I level Code(s): R74.8 - ABNORMAL LEVELS OF OTHER SERUM ENZYMES (4) HTN (hypertension) Code(s): I10 - ESSENTIAL (PRIMARY) HYPERTENSION Qualifiers: Hypertension type: essential hypertension Qualified Code(s): I10 - Essential (primary) hypertension (5) Influenza A Code(s): J10.1 - FLU DUE TO OTH IDENT INFLUENZA VIRUS W OTH RESP MANIFEST (6) Morbid obesity with BMI of 50.0-59.9, adult Code(s): E66.01 - MORBID (SEVERE) OBESITY DUE TO EXCESS CALORIES; Z68.43 - BODY MASS INDEX (BMI) 50-59.9 , ADULT (7) Respiratory failure with hypoxia and hypercapnia Code(s): J96.91 - RESPIRATORY FAILURE, UNSPECIFIED WITH HYPOXIA; J96.92 - RESPIRATORY FAILURE, UNSPECIFIED WITH HYPERCAPNIA Qualifiers: Chronicity: acute on chronic Qualified Code(s): J96.21 - Acute and chronic respiratory failure with hypoxia; J96.22 - Acute and chronic respiratory failure with hypercapnia; J96.22 - Acute and chronic respiratory failure with hypercapnia; J96.22 - Acute and chronic respiratory failure with hypercapnia (8) Uncontrolled diabetes mellitus Code(s): E11.65 - TYPE 2 DIABETES MELLITUS WITH HYPERGLYCEMIA Qualifiers: Diabetes mellitus type: type 2 Diabetes mellitus complication status: without complication Diabetes mellitus termite exterminator helper insulin use: without termite exterminator helper use Qualified Code(s): E11.65 - Type 2 diabetes mellitus with hyperglycemia (9) COPD exacerbation Code(s): J44.1 - CHRONIC OBSTRUCTIVE PULMONARY DISEASE W (ACUTE) EXACERBATION (10) Shortness of breath Code(s): R06.02 - SHORTNESS OF BREATH 11 pneumonia plan stable off of abx continue current mgmt
== END 2017-12-31 18:36 | DRG 193 ==
LOC: JER 22:43 → UNDOADMIN 12-24 01:10 → JERBED 12-24 01:10 → UNDOADMIN 12-24 01:24 → JERBED 12-24 01:24 → JICU 12-24 04:44 → JERBED 12-24 04:44 → J6S 12-28 20:00
PROVIDERS: ADMIT Internal Medicine; ATTEND Internal Medicine
PROC: 5A09557 Assistance with Respiratory Ventilation, Greater than 96 Consecutive Hours, Continuous Positive Airway Pressure (ICD-10-PCS; principal; 2017-12-23)
DX: J10.08 Influenza due to other identified influenza virus with other specified pneumonia (principal); J96.02 Acute respiratory failure with hypercapnia; I50.21 Acute systolic (congestive) heart failure; Z68.42 Body mass index [BMI] 45.0-49.9, adult; I24.8 Other forms of acute ischemic heart disease; J44.1 Chronic obstructive pulmonary disease with (acute) exacerbation; J44.9 Chronic obstructive pulmonary disease, unspecified; R74.8 Abnormal levels of other serum enzymes; I25.10 Atherosclerotic heart disease of native coronary artery without angina pectoris; E11.65 Type 2 diabetes mellitus with hyperglycemia; G47.33 Obstructive sleep apnea (adult) (pediatric); I11.0 Hypertensive heart disease with heart failure; E78.5 Hyperlipidemia, unspecified; E66.01 Morbid (severe) obesity due to excess calories; R00.0 Tachycardia, unspecified; E83.42 Hypomagnesemia; Z87.891 Personal history of nicotine dependence; Z88.0 Allergy status to penicillin; Z99.81 Dependence on supplemental oxygen; Z95.1 Presence of aortocoronary bypass graft; Z95.5 Presence of coronary angioplasty implant and graft; Z91.14 Patient's other noncompliance with medication regimen
CPT/HCPCS: 36415; 36600; 71045-TC; 80048; 80053; 80061; 81003; 81015; 82550; 82553; 82803; 82962; 83036; 83605; 83721; 83735; 83880; 84100; 84443; 84484; 85025; 85610; 87040; 87070; 87086; 87205; 87804; 87899; 90670; 90688; 93005; 93010; 93306-TC; 94640; 94660; 97116-GP; 99284-25; G0008; G0009; J1644; J2997

== ENCOUNTER 2018-02-10 05:49 | Emergency (ER) | payer OTHER ==
[2018-02-10 05:53] VITALS: BP 00/00; PULSE 0; BMI 53.1
[2018-02-10] MEDS ORDERED: CALCIUM CHLORIDE 1 GM/10 ML *DISP.SYRIN ONE (05:55)
[2018-02-10] MEDS ORDERED: SODIUM BICARBONATE 8.4% - 50 ML ONE (05:55)
[2018-02-10] MEDS ORDERED: EPINEPHrine 1:10,000 (P-F SYR) 1 MG/10 ML DISP.SYRIN ONE (05:55)
--- NOTE | 2018-02-10 06:00 | PDOC ---
History of Present Illness - General History Source: EMS <Charlie Bowie - Last Filed: 02/10/18 06:13> - General History Source: EMS Exam Limitations: Unresponsive - History of Present Illness Initial Comments: 02/10/18 06:20 The patient is a 68 year old female with a significant PMH of COPD, CAD s/p CABG , HTN, hyperlipidemia, and diabetes who presents to the emergency department in cardiac arrest. History obtained by EMS: EMS reports arriving to the patients home for evaluation of difficulty breathing. They report she was being treated with breathing treatments and solumedrol prior to transport. The patient suddenly became apneic and went into cardiac arrest. The patient was intubated by EMS in the field and given 4 of epi, 1 of calcium chloride, 1 of sodium bicarbonate, 1 of Combivent, and 10mg Decadron IV push in the field/en route to the hospital. EMS reports giving the patient CPR while being transported to the ED. Allergies: Ibuprofen, Penicillins. Past surgical history: Triple bypass surgery. Past social history: Former smoker. No reported alcohol or drug use. PCP: Dr. Rivera 02/10/18 06:24 <Harley Moseley - Last Filed: 02/10/18 06:24> - General Chief Complaint: Cardiac Arrest Stated Complaint: CARDIAC ARREST Time Seen by Provider: 02/10/18 05:59 Past History - Past Medical History Anemia: No Asthma: No Cancer: No Cardiac Disorders: Yes CVA: No COPD: Yes CHF: No Dementia: No Diabetes: Yes (borderline) GI Disorders: No Disorders: No HTN: Yes Hypercholesterolemia: Yes Liver Disease: No Seizures: No Thyroid Disease: No - Surgical History Abdominal Surgery: No Appendectomy: No Cardiac Surgery: Yes (triple bypass) Cholecystectomy: No Lung Surgery: No Neurologic Surgery: No Orthopedic Surgery: No - Immunization History Immunization Up to Date: Yes - Suicide/Smoking/Psychosocial Hx Smoking History: Unknown if ever smoked Have you smoked in the past 12 months: No Hx Alcohol Use: Yes (In the past) Drug/Substance Use Hx: No Substance Use Type: None Hx Substance Use Treatment: No <Charlie Bowie - Last Filed: 02/10/18 06:13> <Harley Moseley - Last Filed: 02/10/18 06:24> - Past Medical History Allergies/Adverse Reactions: Allergies Allergy/AdvReac Type Severity Reaction Status Date / Time ibuprofen Allergy Verified 02/10/18 05:52 Penicillins Allergy Verified 02/10/18 05:52 Home Medications: Ambulatory Orders Amlodipine Besylate [Norvasc -] 10 mg PO DAILY 02/03/15 Losartan Potassium 100 mg PO DAILY 02/03/15 Salmeterol/Fluticasone [Advair 100Mcg/50Mcg -] 1 inh PO BID 02/03/15 Gabapentin 300 mg PO HS 12/23/17 Metformin HCl [Glucophage] 1,000 mg PO BID 12/23/17 Albuterol 2.5/Ipratropium 0.5 [Duoneb -] 1 amp NEB Q4H PRN amp 12/31/17 Aspirin [ASA -] 81 mg PO DAILY tab.chew 12/31/17 Carvedilol [Coreg -] 6.25 mg PO BID tablet 12/31/17 Insulin (Levemir) [Levemir Vial] 30 units SQ BID@0700,2200 ml 12/31/17 Losartan Potassium [Cozaar -] 100 mg PO DAILY tablet 12/31/17 Lytes/Yerba Isha [Mouthkote Solution -] 1 applic MM DAILY applic 12/31/17 Pantoprazole Sodium [Protonix -] 20 mg PO DAILY tablet.ec 12/31/17 Spironolactone [Aldactone -] 25 mg PO DAILY tablet 12/31/17 predniSONE [Deltasone -] 40 mg PO DAILY tablet 12/31/17 Review of Systems - Review of Systems Able to Perform ROS?: No Comments:: 02/10/18 06:20 Cardiac arrest <Harley Moseley - Last Filed: 02/10/18 06:24> *Physical Exam - Vital Signs Last Vital Signs Temp Pulse Resp BP Pulse Ox 0 L 0 L 00/00 02/10/18 05:52 02/10/18 05:52 02/10/18 05:52 <Charlie Bowie - Last Filed: 02/10/18 06:13> - Vital Signs Last Vital Signs Temp Pulse Resp BP Pulse Ox 0 L 0 L 00/00 02/10/18 05:52 02/10/18 05:52 02/10/18 05:52 - Physical Exam Comments: 02/10/18 06:20 GENERAL: Morbidly obese. HEENT: Atraumatic, normocephalic. Pupils fixed and dilated. CARDIOVASCULAR: No spontaneous heart sounds. ABDOMEN: Morbidly obese. PULMONARY: Intubated. No spontaneous breath sounds. EXTREMITIES: No deformities. No ecchymosis. NEUROLOGICAL: No neurological activity. <Harley Moseley - Last Filed: 02/10/18 06:24> Medical Decision Making - Medical Decision Making 02/10/18 06:23 Upon arrival, CPR was in progress. EMS reports the patient continued not having any vital signs. SonoSite was used and showed no spontaneous cardiac motility. Time of was pronounced by me at 5:36AM. Brother Demetrio Curtis present and informed of patients expiration. land law examiner Mat Repairer Javier was called. The case was not accepted. Case # [id number]. <Harley Moseley - Last Filed: 02/10/18 06:24> *DC/Admit/Observation/Transfer - Discharge Dispostion Admit: No <Charlie Bowie - Last Filed: 02/10/18 06:13> - Attestations Scribe Attestion: 02/10/18 06:21 Documentation prepared by Harley Moseley, acting as clinical medical transcriptionist for Charlie Bowie DO. <Harley Moseley - Last Filed: 02/10/18 06:24> Diagnosis at time of Disposition: Cardiac arrest - Discharge Dispostion Disposition: Condition at time of disposition: - Patient Instructions Printed Discharge Instructions: Cardiac Arrest
== END 2018-02-10 06:40 | disposition expired ==
LOC: JER 05:49
DX: I46.9 Cardiac arrest, cause unspecified (principal); I25.810 Atherosclerosis of coronary artery bypass graft(s) without angina pectoris; I10 Essential (primary) hypertension; Z95.1 Presence of aortocoronary bypass graft; Z87.891 Personal history of nicotine dependence; J44.9 Chronic obstructive pulmonary disease, unspecified; E11.9 Type 2 diabetes mellitus without complications; Z79.4 Long term (current) use of insulin; Z79.84 Long term (current) use of oral hypoglycemic drugs; E78.5 Hyperlipidemia, unspecified; E78.00 Pure hypercholesterolemia, unspecified; Z79.82 Long term (current) use of aspirin; E66.01 Morbid (severe) obesity due to excess calories; Z68.43 Body mass index [BMI] 50.0-59.9, adult
CPT/HCPCS: 92950; 99285-25